=== PATIENT | female | born 1965 | race Caucasian/White ===

== ENCOUNTER 2022-09-06 19:38 | Emergency (ER) | payer MEDICAID, SELFPAY ==
--- NOTE | ~2022-09-06 | XR_ITS ---
EXAMINATION: XR RIBS, LEFT CLINICAL INFORMATION: Left-sided rib pain. COMPARISON: None available. TECHNIQUE: PA view the chest as well as 3 views of the left ribs. FINDINGS: Lungs are clear. No consolidation, pneumothorax, or pleural effusion. The cardiomediastinal silhouette and pulmonary vasculature are normal. Osseous structures are unremarkable. Ribs are intact. No fractures are identified. XR/XR ribs LT min 3V w CXR1V IMPRESSION: No displaced fracture.
--- NOTE | 2022-09-06 19:40 | ED_ITS ---
HPI - General Adult General Chief complaint: Fall Stated complaint: Fall/Left Rib pain Time Seen by Provider: 09/06/22 20:18 Source: patient, RN notes reviewed and old records reviewed Mode of arrival: ambulatory Limitations: no limitations History of Present Illness HPI narrative: 57-year-old female presents for evaluation of left chest wall pain. Patient reports that she was resting her elbow on the edge of the bathtub last night. She tried to stand up in her elbow slipped off. She landed on the bathtub with her left side She reports that it knocked the wind out of her and she had trouble breathing fo r a few minutes She reports that she still has pain with deep breathing and does not feel that she can take a full breath Denies hitting head or losing consciousness She is not on any anticoagulation Related Data Allergies Allergy/AdvReac Type Severity Reaction Status Date / Time No Known Allergies Allergy Verified 09/06/22 19:43 Review of Systems Constitutional: Constitutional: Denies headache(s) ENT: Denies headache(s) Cardiovascular: Comments: Left chest wall pain Genitourinary: Comments: Denies blood in the urine Neurologic: Denies headache(s) PMFSH Social History Social History Advance Directives: No Advance Directives Information Provided: No Physical Exam ED Vital Signs: Vital Signs - 24 hr 09/06/22 19:43 Temperature 98.6 F Pulse Rate 85 Respiratory Rate 19 Blood Pressure 131/50 L Pulse Oximetry 98 Oxygen Delivery Method Room Air BMI result Body Mass Index 24.0 Const General: healthy appearing, comfortable, no acute distress, alert and awake Nutritional Appearance: well nourished Orientation/consciousness: patient oriented x3 HENMT Head: Yes normocephalic and Yes atraumatic Eyes Eyelids: Yes eyelids normal Conjunctivae: conjunctivae normal Sclerae: sclerae normal Corneas: corneas normal Pupils: Equal, round and reactive pupils present EOM: EOMs intact bilaterally Neck Neck: Yes full ROM Chest Other: Patient has some tenderness in the left anterior axilla line at the level of the 10th through 12th ribs. Mild ecchymosis, no deformities noted. No crepitus Resp Effort & Inspection: normal respiratory effort, able to speak in complete sentences and not labored Cardio Rate: regular rate Rhythm: regular rhythm GI Other: No ecchymosis to the abdomen or left flank Inspection: No distended Palpation (GI): Soft to palpation, not firm, nontender, no guarding and not rigid Auscultation: normoactive bowel sounds Skin General skin exam: no rashes or lesions noted and elasticity normal Neuro General: patient oriented x3 Cranial nerves: Yes CN's II-XII intact bilaterally, Yes Equal, round and reactive pupils present and Yes Bilaterally intact EOM present Cognition (Neuro): normal cognition Extrem Other: Moving all extremities well without any obvious deformities Course Course Course Narrative: This is an RME: Additional HPI, ROS, PE not included below will be deferred to primary provider. 57-year-old female presents with left lower rib pain, status post slip and fall in a shower yesterday, pain has been worsening ever since. Rates the pain a 7/10. In patient tells she did not her head or lose consciousness. Not on blood thinners. Has taken Tylenol and tramadol with little to no relief physical exam with tenderness to palpation to left anterior lower ribs 7-10 Plan- xray Medical Decision Making Medical Decision Making MDM Narrative: Patient had trauma to the left chest wall. With an x-ray of the ribs with PA chest. There is no ecchymosis to the abdomen or flank. The patient denies any blood in the urine or difficulty urinating. The son is make splenic or renal injury is less likely Differential Diagnosis Differential Diagnoses: The differential diagnosis associated with the presentation includes Rib fracture Pneumothorax Hemopneumothorax Contusion Independent Interpretation I performed an independent interpretation of an: Plain X-Ray (No acute displaced rib fracture) Discharge Plan Discharge Clinical Impression: Contusion of left chest wall Patient Disposition: Home, Self-Care Instructions: Rib Contusion (ED) Additional Instructions: Your x-rays do not show any obvious displaced rib fractures. Use Motrin or Tylenol as needed for the pain. Apply ice or heat, whichever is more comfortable for you You should get repeat x-rays if your still unable to take a deep breath in 1 week
[2022-09-06 19:43] VITALS: BP 131/50; PULSE 85; RESP 19; TEMP 37; O2SAT 98; BMI 24.0
== END 2022-09-06 20:44 | disposition home or self-care (01) ==
PROVIDERS: Emergency Provider Internal Medicine; PCP Family Medicine
DX: S20.212A Contusion of left front wall of thorax, initial encounter (principal); W18.2XXA Fall in (into) shower or empty bathtub, initial encounter; Y93.E1 Activity, personal bathing and showering; Y92.012 Bathroom of single-family (private) house as the place of occurrence of the external cause; Y99.9 Unspecified external cause status
CPT/HCPCS: 71101; 99282; 99283

== ENCOUNTER 2023-02-26 10:56 | Outpatient (REF) | payer MEDICAID, SELFPAY ==
[2023-02-26 12:05] LABS: Cortisol Random 8.4 ug/dL; Thyroid Stimulating Hormone 1.32 uIU/mL (0.32-4.0)
[2023-02-28 07:09] LABS: DHEA Sulfate 18 mcg/dL (5-167)
[2023-03-02 19:59] LABS: Metanephrine, Free <25 pg/mL (<=57); Normetanephrines, Free 82 pg/mL (<=148); Total Metanephrine, Free 82 pg/mL (<=205)
[2023-03-08 18:28] LABS: Testosterone, Free 0.6 pg/mL (0.1-6.4); Testosterone, Total 7 ng/dL (2-45)
== END 2023-02-26 10:57 | disposition home or self-care (01) ==
LOC: HO.LAB 10:56
PROVIDERS: PCP Family Medicine; Visit Provider Internal Medicine Endocrinology, Diabetes & Metabolism
DX: E27.8 Other specified disorders of adrenal gland (principal)
CPT/HCPCS: 36415; 82533; 82627; 83835; 84402; 84403; 84443

== ENCOUNTER 2023-03-12 08:00 | Outpatient (REF) | payer MEDICAID, SELFPAY ==
[2023-03-12 09:19] LABS: Cortisol Random < 1.0 ug/dL
== END 2023-03-12 08:01 | disposition home or self-care (01) ==
LOC: HO.LAB 08:00
PROVIDERS: Visit Provider Internal Medicine Endocrinology, Diabetes & Metabolism
DX: E27.8 Other specified disorders of adrenal gland (principal)
CPT/HCPCS: 36415; 82533

== ENCOUNTER 2023-04-05 08:56 | Outpatient (AMB) | payer MEDICAID, SELFPAY ==
--- NOTE | 2023-04-05 09:11 | MHC.OFFVIS ---
Intake Vital Signs 04/05/23 09:17 Height 5 ft 1 in Weight 124 lb 6 oz BMI 23.5 BP 126/68 Blood Pressure Location Lt brachial Position Sitting Respiration 16 Pulse 70 Pulse Source Pulse Oximeter Pulse Oximetry (%) 97 Oxygen Delivery Method Room Air Intake Visit Reasons: Cervicalgia/confirmed Allergies No Known Allergies Allergy (Verified 04/05/23 09:09) HPI HPI Comments History of Present Illness Details Blanka is a very pleasant 58-year-old female who presents the office today for evaluation and management of her chronic neck pain. 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 She was formally a patient of Dr. Ledesma, interventional pain management at [facility], but has relocated to this area and is seeking to establish care in our office. Patient reports that she has tried physical therapy many times in the past, most recently about 2 years ago without improvement of her pain. She continues with home exercise program and reports that this helps with her pain, pain is worse if she does not stay active. She is currently undergoing manual manipulation by chiropractor. She uses a traction machine, 10s unit and ice at home with some relief. Patient currently takes cyclobenzaprine and is on chronic opioid therapy management with tramadol that she takes a couple times a week. She was hoping that our office would assume management of her chronic opioid therapy. Patient reports that she has tried several injections to her cervical spine in the past, none provided prolonged relief. Patient denies radiation of the pain down either arm, denies numbness, tingling, burning, or weakness of either arm. She does report radiation of the pain across her upper back to the shoulder blades, bilaterally. Patient denies headaches. In terms of muscle damage condition is described as aching, dull, hot, burning. Pain is negatively impacting patient's recreational activities, sleep inability to care for her . 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 [facility] Medical History (Updated 04/05/23 @ 09:48 by Isa Escobar, CLINICAL SPECIALIST, NEWSPAPER PEDDLER) Adrenal nodule Other hyperlipidemia Anxiety Other chronic pain Review of Systems Const All systems reviewed & are unremarkable except as noted in HPI and below Physical Exam Vital Signs: Last Vital Signs Pulse 70 04/05/23 09:17 Resp 16 04/05/23 09:17 BP 126/68 04/05/23 09:17 Pulse Ox 97 04/05/23 09:17 Oxygen Delivery Method Room Air 04/05/23 09:17 BMI result Body Mass Index 23.5 General: awake, alert, oriented. Answers questions appropriately. Fully engaged in examination. Skin: warm, dry, intact HEENT: Normocephalic. Hearing intact. Cardiac: External chest normal in appearance. Respiratory: No cough, audible wheezing or stridor. Abdomen: without gross distension. MS: No obvious swelling or deformities. Cervical Spine: Visible inspection without gross abnormality Moderate tenderness throughout bilateral middle and lower trapezius muscles Minimally tender to palpation over paraspinal muscles Tender to palpation over cervical vertebrae Full RO< Spurling compression test positive BUE strength 5/5 Neurological: Oriented to person, place, time and situation. Thought process intact. No gait abnormalities appreciated. Psychiatric: Appropriate mood and affect. Good judgment and insight. Results Reviewed Results Reviewed: MRI results have been requested from [facility] for review Assessment & Plan Assessment & Plan (1) Lumbar spondylosis: Code(s): M47.816 - Spondylosis without myelopathy or radiculopathy, lumbar region (2) Chronic neck pain: Code(s): M54.2 - Cervicalgia; G89.29 - Other chronic pain (3) Chronic prescription opiate use: Code(s): Z79.891 - shelter (current) use of opiate analgesic (4) Myofascial muscle pain: Code(s): M79.18 - Myalgia, other site Plan Blanka is a very pleasant 58-year-old female who presented to the office today for evaluation management of her chronic pain. She was formally under care of interventional pain management at [facility], has relocated to this area and is seeking to establish care in our office. Patient is advised that our chronic opioid therapy program is not currently accepting new patients, she was referred to her primary care doctor for refills of her tramadol. MRI results and disc of images have been requested for review. Patient has exhausted conservative therapy including physical therapy, home exercise program, chiropractor, ice, 10s unit, traction, qgvw-vly-unaeivj medications, prescription medications and muscle relaxers. Discussed options for treatment including diagnostic interventional testing, epidural steroid injections, peripheral nerve stimulation with Sprint, RFA and more permanent neuromodulation. Informational pamphlets provided. Will schedule patient for bilateral C4-C5 C6 diagnostic medial branch blocks with local anesthetic pending review of MRI. Discussed option for Sprint peripheral nerve stimulator versus RFA pending positive results of the diagnostic injections. All questions and concerns have been answered and patient agrees with the plan. Follow up after injections and sooner if needed. Coding Level of Care Code New Pt Level 4 (83831) Diagnoses Lumbar spondylosis M47.816 Chronic neck pain M54.2; G89.29 Chronic prescription opiate use Z79.891 Myofascial muscle pain M79.18
[2023-04-05 09:17] VITALS: BP 126/68; PULSE 70; RESP 16; O2SAT 97; BMI 23.5
== END 2023-04-05 09:39 | disposition home or self-care (01) ==
PROVIDERS: PCP Family Medicine; Visit Provider Registered Nurse Emergency
DX: M47.816 Spondylosis without myelopathy or radiculopathy, lumbar region (principal); M54.2 Cervicalgia; G89.29 Other chronic pain; Z79.891 Long term (current) use of opiate analgesic; M79.18 Myalgia, other site
CPT/HCPCS: 99204

== ENCOUNTER → 2023-04-05 08:56 | Outpatient (BNVA) | payer MEDICAID, SELFPAY | PROVIDERS: PCP Family Medicine; Visit Provider Registered Nurse Emergency | DX: M47.816 Spondylosis without myelopathy or radiculopathy, lumbar region (principal); M54.2 Cervicalgia; M79.18 Myalgia, other site; G89.29 Other chronic pain; Z79.891 Long term (current) use of opiate analgesic | CPT/HCPCS: 99212 ==

== ENCOUNTER 2023-05-14 06:11 | Outpatient (REF) | payer MEDICAID, SELFPAY ==
--- NOTE | ~2023-05-14 | FL_ITS ---
EXAMINATION: XR FLUOROSCOPY WITH IMAGES CLINICAL INFORMATION: Spondylosis without myelopathy or radiculopathy, lumbar region. COMPARISON: None available. TECHNIQUE: Fluoroscopy Supervised By: Isa Escobar APRN. Fluoroscopy Time: 0.5 minutes. Cumulative Dose: 1.27 mGy. DAP: 0.0222 mGym2. Images: 6. FINDINGS: Imaging demonstrates sequential placement of needles in the left and right neck with injection of contrast media which appears to be in adjacent tissues. Please see ALXE Escobar's procedure report for full details. FL/FL guidance in treatment room IMPRESSION: Fluoroscopy and spot films provided during bilateral neck injections.
== END 2023-05-14 06:12 | disposition home or self-care (01) ==
LOC: CF 06:11
PROVIDERS: Visit Provider Anesthesiology
DX: M47.816 Spondylosis without myelopathy or radiculopathy, lumbar region (principal); M54.2 Cervicalgia; M79.18 Myalgia, other site; G89.29 Other chronic pain; Z79.891 Long term (current) use of opiate analgesic
CPT/HCPCS: 64490; 64491

== ENCOUNTER 2023-05-14 09:06 | Outpatient (AMB) | payer MEDICAID, SELFPAY ==
[2023-05-14 09:21] VITALS: BP 110/64; PULSE 74; RESP 16; O2SAT 100; BMI 23.5
--- NOTE | 2023-05-14 09:21 | MHC.OFFVIS ---
Intake Vital Signs 05/14/23 09:21 05/14/23 09:22 Height 5 ft 1 in 5 ft 1 in Weight 124 lb 6 oz 124 lb 6 oz BMI 23.5 23.5 BP 110/64 108/66 Blood Pressure Location Lt brachial Lt brachial Position Sitting Sitting Respiration 16 16 Pulse 74 70 Pulse Source Pulse Oximeter Pulse Oximeter Pulse Oximetry (%) 100 100 Oxygen Delivery Method Room Air Room Air Comment pre-op post-op Intake Visit Reasons: BILATERAL DIAGNOSTIC C4,C5,C6 MBB Allergies No Known Allergies Allergy (Verified 05/14/23 10:37) [facility] Medical History (Updated 04/05/23 @ 09:48 by Isa Escobar, FOREST FIRE MANAGEMENT OFFICER, [employer]) Adrenal nodule Other hyperlipidemia Anxiety Other chronic pain Physical Exam Vital Signs: Last Vital Signs Pulse 70 05/14/23 09:22 Resp 16 05/14/23 09:22 BP 108/66 05/14/23 09:22 Pulse Ox 100 05/14/23 09:22 Oxygen Delivery Method Room Air 05/14/23 09:22 BMI result Body Mass Index 23.5 Assessment & Plan Assessment & Plan (1) Lumbar spondylosis: Code(s): M47.816 - Spondylosis without myelopathy or radiculopathy, lumbar region (2) Chronic neck pain: Code(s): M54.2 - Cervicalgia; G89.29 - Other chronic pain (3) Chronic prescription opiate use: Code(s): Z79.891 - [facility] (current) use of opiate analgesic (4) Myofascial muscle pain: Code(s): M79.18 - Myalgia, other site Plan: Bilateral C4-C4- C6 diagnostic medial branch block. ?Informed consent was explained to the patient. All questions were explained and answered.? The patient was taken inside the operating room where she was positioned prone on the operating table. Time-out was performed delineating correct site, side, the nature of the procedure, patient's allergy, preoperative antibiotic if needed.? All operating room staff was participating in OR time-out procedure. The back of the neck and upper back were prepped with ChloraPrep and draped with sterile towels.? Sterilely draped C-arm was brought over the operating field and sq picture of? C4-C5-C6 vertebrae were delineated on the screen.? Points of interest were delineated as lateral masses bilaterally of the vertebrae as above. The waste of each lateral mass was chosen as the target of the tip of the needles on AP view and lateral view was used as a safety view for the tips of the needles position.?? The projections of the point of interest to the skin were injected with the small amount of local anesthetic lidocaine 2% 1-1.5 cc.? After that 22 gauge 3and 1/2 inch? spinal needles were driven to the point of interest in tunnel vision fashion. After needles gently contacted the bone at the point of interests the needle was injected with small amount of the contrast. The injections did not demonstrate intravascular or intrathecal spread.. After that ropivacaine 0.5%-1cc. was injected into each location of the needles. Upon completion of the injections the needles were removed and sterile dressings were applied, the patient was a taken? outside of the operating room to recovery room where she recovered uneventfully. Darby Moscoso is a very pleasant 58-year-old female who presented to the office today for evaluation management of her chronic pain. She was formally under care of interventional pain management at [facility], has relocated to this area and is seeking to establish care in our office. Patient is advised that our chronic opioid therapy program is not currently accepting new patients, she was referred to her primary care doctor for refills of her tramadol. MRI results and disc of images have been requested for review. Patient has exhausted conservative therapy including physical therapy, home exercise program, chiropractor, ice, 10s unit, traction, racy-rmn-degyxkr medications, prescription medications and muscle relaxers. Discussed options for treatment including diagnostic interventional testing, epidural steroid injections, peripheral nerve stimulation with Sprint, RFA and more permanent neuromodulation. Informational pamphlets provided. Will schedule patient for bilateral C4-C5 C6 diagnostic medial branch blocks with local anesthetic pending review of MRI. Discussed option for Sprint peripheral nerve stimulator versus RFA pending positive results of the diagnostic injections. All questions and concerns have been answered and patient agrees with the plan. Follow up after injections and sooner if needed. Orders: Orders FL guidance in treatment room Today M47.816 - Spondylosis without myelopathy or radiculopathy, lumbar region Coding Level of Care Code Procedure Only Diagnoses Lumbar spondylosis M47.816 Chronic neck pain M54.2; G89.29 Chronic prescription opiate use Z79.891 Myofascial muscle pain M79.18
[2023-05-14 09:22] VITALS: BP 108/66; PULSE 70; RESP 16; O2SAT 100; BMI 23.5
== END 2023-05-14 09:58 | disposition home or self-care (01) ==
LOC: HO.PMCPRC 09:06
PROVIDERS: PCP Family Medicine; Visit Provider Anesthesiology
DX: M47.816 Spondylosis without myelopathy or radiculopathy, lumbar region (principal); M54.2 Cervicalgia; G89.29 Other chronic pain; Z79.891 Long term (current) use of opiate analgesic; M79.18 Myalgia, other site
CPT/HCPCS: 64490; 64491

== ENCOUNTER 2023-05-22 10:29 | Outpatient (AMB) | payer MEDICAID, SELFPAY ==
[2023-05-22 10:36] VITALS: BP 123/58; PULSE 64; RESP 16; O2SAT 99; BMI 23.4
--- NOTE | 2023-05-22 10:36 | A.OFFVIS_ITS ---
Intake Vital Signs 3 05/22/23 10:36 Height 5 ft 1 in Weight 124 lb BMI 23.4 BP 123/58 L Blood Pressure Location Lt brachial Position Sitting Respiration 16 Pulse 64 Pulse Source Pulse Oximeter Pulse Oximetry (%) 99 Oxygen Delivery Method Room Air Intake Visit Reasons: BILATERAL DIAGNOSTIC C4, C5,C6 MBB/05/07/23 Allergies No Known Allergies Allergy (Verified 05/14/23 10:37) HPI HPI Comments 2 History of Present Illness0 Details Blanka presents to the office today for follow up post diagnostic bilateral C4-C5 C6 medial branch blocks Patient reports prior to the procedure her pain level was 7/10 and after the procedure pain was 2/10 She reports approximately 70% pain relief in the hours after the diagnostic injection with improvement in functional mobility. At last visit discussed Sprint versus RFA, patient would like to proceed with bilateral Sprint peripheral nerve stimulator. Records received after previous visit from [facility] have been reviewed, results as per below. Prior: Blanka is a very pleasant 58-year-old female who presents the office today for evaluation and management of her chronic neck pain. 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 She was formally a patient of Dr. Ledesma, interventional pain management at [facility], but has relocated to this area and is seeking to establish care in our office. Patient reports that she has tried physical therapy many times in the past, most recently about 2 years ago without improvement of her pain. She continues with home exercise program and reports that this helps with her pain, pain is worse if she does not stay active. She is currently undergoing manual manipulation by chiropractor. She uses a traction machine, 10s unit and ice at home with some relief. Patient currently takes cyclobenzaprine and is on chronic opioid therapy management with tramadol that she takes a couple times a week. She was hoping that our office would assume management of her chronic opioid therapy. Patient reports that she has tried several injections to her cervical spine in the past, none provided prolonged relief. Patient denies radiation of the pain down either arm, denies numbness, tingling, burning, or weakness of either arm. She does report radiation of the pain across her upper back to the shoulder blades, bilaterally. Patient denies headaches. In terms of muscle damage condition is described as aching, dull, hot, burning. Pain is negatively impacting patient's recreational activities, sleep inability to care for her . 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 [facility] Medical History (Updated 04/05/23 @ 09:48 by Isa Escobar, BIG DATA SOFTWARE ENGINEER, INDUSTRIAL GAS SERVICER HELPER) Adrenal nodule Other hyperlipidemia Anxiety Other chronic pain Review of Systems Const All systems reviewed & are unremarkable except as noted in HPI and below Physical Exam Vital Signs: Last Vital Signs Pulse 64 05/22/23 10:36 Resp 16 05/22/23 10:36 BP 123/58 L 05/22/23 10:36 Pulse Ox 99 05/22/23 10:36 Oxygen Delivery Method Room Air 05/22/23 10:36 BMI result Body Mass Index 23.4 General: awake, alert, oriented. Answers questions appropriately. Fully engaged in examination. Skin: warm, dry, intact HEENT: Normocephalic. Hearing intact. Cardiac: External chest normal in appearance. Respiratory: No cough, audible wheezing or stridor. Abdomen: without gross distension. MS: No obvious swelling or deformities. Cervical Spine: Visible inspection without gross abnormality Range of motion intact Neurological: Oriented to person, place, time and situation. Thought process intact. No gait abnormalities appreciated. Psychiatric: Appropriate mood and affect. Good judgment and insight. 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 Discussed options for treatment including therapeutic injections, peripheral nerve stimulation with Sprint, RFA and more permanent neuromodulation. Informational pamphlets provided. Patient would like to proceed with bilateral Sprint peripheral nerve stimulator starting with the left side, right side to follow in 2 weeks. Booking order submitted for fluoroscopy guided left C5MB, maybe C4, maybe C6 sprint peripheral nerve stimulator the local anesthetic. Right side to follow 2 weeks after left side placement. All questions and concerns have been answered and patient agrees with the plan. Follow up after procedure, sooner if needed. Coding Level of Care Code Est Pt Level 3 (96432) Diagnoses Lumbar spondylosis M47.816 Chronic neck pain M54.2; G89.29 Chronic prescription opiate use Z79.891 Myofascial muscle pain M79.18
== END 2023-05-22 11:28 | disposition home or self-care (01) ==
PROVIDERS: PCP Family Medicine; Visit Provider Registered Nurse Emergency
DX: M47.816 Spondylosis without myelopathy or radiculopathy, lumbar region (principal); M54.2 Cervicalgia; G89.29 Other chronic pain; Z79.891 Long term (current) use of opiate analgesic; M79.18 Myalgia, other site
CPT/HCPCS: 99213

== ENCOUNTER → 2023-05-22 10:29 | Outpatient (BNVA) | payer MEDICAID, SELFPAY | PROVIDERS: PCP Family Medicine; Visit Provider Registered Nurse Emergency | DX: M47.816 Spondylosis without myelopathy or radiculopathy, lumbar region (principal); G89.29 Other chronic pain; M54.2 Cervicalgia; M79.18 Myalgia, other site; Z79.891 Long term (current) use of opiate analgesic; Z98.890 Other specified postprocedural states | CPT/HCPCS: 99212 ==

== ENCOUNTER 2023-07-09 06:16 | Outpatient (REF) | payer MEDICAID, SELFPAY ==
--- NOTE | ~2023-07-09 | FL_ITS ---
EXAMINATION: XR FLUOROSCOPY WITH IMAGES CLINICAL INFORMATION: Cervicalgia. COMPARISON: Fluoroscopy dated 06/25/2023. TECHNIQUE: Fluoroscopy Supervised By: Dr. Angel Norris. Fluoroscopy Time: 0.1 minutes. Cumulative Dose: 0.343 mGy. DAP: 0.06964 mGym2. Images: 1. FINDINGS: A guidewire overlaps the right cervical paravertebral soft tissues. FL/FL guidance in treatment room IMPRESSION: Intraoperative fluoroscopy is provided during cervical spine pain management procedure. Please see the patient's Operative Report for full procedural details.
== END 2023-07-09 06:17 | disposition home or self-care (01) ==
LOC: CF 06:16
PROVIDERS: Visit Provider Anesthesiology
DX: M47.816 Spondylosis without myelopathy or radiculopathy, lumbar region (principal); M54.2 Cervicalgia; G89.29 Other chronic pain; Z79.891 Long term (current) use of opiate analgesic
CPT/HCPCS: 64555; C1778

== ENCOUNTER 2023-07-09 08:37 | Outpatient (AMB) | payer MEDICAID, SELFPAY ==
[2023-07-09 08:43] VITALS: BP 114/68; PULSE 73; RESP 16; O2SAT 100; BMI 23.4
--- NOTE | 2023-07-09 08:43 | MHC.OFFVIS ---
Intake Vital Signs 07/09/23 08:43 07/09/23 09:34 Height 5 ft 1 in 5 ft 1 in Weight 124 lb 124 lb BMI 23.4 23.4 BP 114/68 122/70 Blood Pressure Location Rt brachial Rt brachial Position Sitting Sitting Respiration 16 16 Pulse 73 63 Pulse Source Pulse Oximeter Pulse Oximeter Pulse Oximetry (%) 100 99 Oxygen Delivery Method Room Air Room Air Comment pre-op post-op Intake Visit Reasons: RIGHT C5 (MAYBE C4, MAYBE C6) SPRINT PNS Allergies No Known Allergies Allergy (Verified 07/09/23 08:45) [facility] Medical History (Updated 04/05/23 @ 09:48 by Isa Escobar, TRAFFIC SAFETY ADMINISTRATOR, [employer]ACHINE) Adrenal nodule Other hyperlipidemia Anxiety Other chronic pain Physical Exam Vital Signs: Last Vital Signs Pulse 63 07/09/23 09:34 Resp 16 07/09/23 09:34 BP 122/70 07/09/23 09:34 Pulse Ox 99 07/09/23 09:34 Oxygen Delivery Method Room Air 07/09/23 09:34 BMI result Body Mass Index 23.4 Office Procedures Details: Right side completed today, in-2. weeks we will perform the left side. Sprint PNS Device: Sprint PNS Device [id number] Percutaneous Peripheral Neuroelectrode Procedure: 51312 - Percutaneous Peripheral Neuroelectrode Procedure code (CPT) selection complete Assessment & Plan Assessment & Plan (1) Lumbar spondylosis: Code(s): M47.816 - Spondylosis without myelopathy or radiculopathy, lumbar region (2) Chronic neck pain: Code(s): M54.2 - Cervicalgia; G89.29 - Other chronic pain (3) Chronic prescription opiate use: Code(s): Z79.891 - associate business analyst (current) use of opiate analgesic (4) Myofascial muscle pain: Code(s): M79.18 - Myalgia, other site Plan Sprint PNS C5 on the right. Percutaneous implantation of peripheral nerve stimulation Sprint system. After the risks, benefits and alternatives were discussed with the patient and informed consent was obtained, patient was placed in the prone position and padded to foster comfort. Time out was performed delineating correct site and side of the procedure , name and of the patient, patient participated in time out procedure. Sterily draped C-arm was brought over the operating field and clear picture of the C5 lamina on the right was delineated on the screen. The upper central portion of the lamina was chosen as a target of the needle tip insertion . After identifying and marking the intended target, the skin around the planned entry point and the subcutaneous tissues were injected with local anesthetic forming skin wheal.. A percutaneous sleeve and stimulating probe lead introduction system were assembled, inserted and advanced through the skin wheal to the point of interest under C-arm view in tunnel vision fashion, the introducer needle was delivered to a location in proximity to the nerve. Multiple stimulation parameters were used to deliver stimulation to the nerve in concert with stimulating at multiple positions around the nerve. nerve target acquisition was confirmed noting generation of in the corresponding to the nerve being stimulated. Various electrical parameter combinations were tested, and the lead location was adjusted (physically relocated) until the patient indicated overlapping the distribution of the patient?s typical region of pain. The stimulating probe was removed from the introducer and a percutaneous lead was guided through the needle and delivered to a location in similar proximity to the nerve. Final location was verified with electrical stimulation. The introducer needle was removed, and the exposed end of the percutaneous lead was attached to an external stimulator unit. At the end of the case various electrical parameter combinations were again tested until the patient indicated paresthesia or muscle tension overlapping the distribution of the patient?s typical region of pain. After confirming that lead impedance was in the normal range, the external unit was detached, the needle was removed, and the lead was anchored at the skin. The lead was threaded into the connector block and electrical continuity and desired patient response was confirmed. The connector block was attached to the external stimulator unit. The site was covered with a sterile occlusive dressing and a image was taken to document final placement. Upon completion of the procedure the patient was taken outside the OR where she recovered uneventfully he went home without immediate complications Orders: Orders FL guidance in treatment room Today G89.29 - Other chronic pain, M54.2 - Cervicalgia Coding Level of Care Code Procedure Only Diagnoses Lumbar spondylosis M47.816 Chronic neck pain M54.2; G89.29 Chronic prescription opiate use Z79.891 Myofascial muscle pain M79.18 CPT Codes Sprint PNS - Sprint PNS Device: Sprint PNS Device ([id number]) Sprint PNS - SPRINT: 54226 - Percutaneous Peripheral Neuroelectrode ([id number])
[2023-07-09 09:34] VITALS: BP 122/70; PULSE 63; RESP 16; O2SAT 99; BMI 23.4
== END 2023-07-09 09:42 | disposition home or self-care (01) ==
LOC: HO.PMCPRC 08:37
PROVIDERS: PCP Family Medicine; Visit Provider Anesthesiology
DX: M47.816 Spondylosis without myelopathy or radiculopathy, lumbar region (principal); M54.2 Cervicalgia; G89.29 Other chronic pain; Z79.891 Long term (current) use of opiate analgesic; M79.18 Myalgia, other site
CPT/HCPCS: 64555

== ENCOUNTER 2023-07-17 10:46 | Outpatient (AMB) | payer MEDICAID, SELFPAY ==
[2023-07-17 10:56] VITALS: BP 139/56; PULSE 80; RESP 18; O2SAT 98; BMI 23.4
--- NOTE | 2023-07-17 10:56 | A.OFFVIS_ITS ---
Intake Vital Signs 3 07/17/23 10:56 Height 5 ft 1 in Weight 124 lb BMI 23.4 BP 139/56 L Blood Pressure Location Lt brachial Position Sitting Respiration 18 Pulse 80 Pulse Source Pulse Oximeter Pulse Oximetry (%) 98 Oxygen Delivery Method Room Air Intake Visit Reasons: RIGHT C5 SPRINT PNS/07/09/23 Allergies No Known Allergies Allergy (Verified 07/17/23 10:56) HPI HPI Comments 2 History of Present Illness0 Details Blnaka presents back to the office today for follow-up right C5 sprint PNS placement performed 07/09/2023 Patient reports 70% improvement in her right cervical neck pain since device placement. She does report continued left-sided cervical pain, is awaiting left Sprint placement next week. She has been changing the dressing at home without difficulty. Adjusting the stimulation as needed without difficulty. Has been in close contact with her Sprint arborist representative. She denies any untoward effects of the sprint device. Prior: Blanka presents to the office today for follow up post diagnostic bilateral C4- C5 C6 medial branch blocks Patient reports prior to the procedure her pain level was 7/10 and after the procedure pain was 2/10 She reports approximately 70% pain relief in the hours after the diagnostic injection with improvement in functional mobility. At last visit discussed Sprint versus RFA, patient would like to proceed with bilateral Sprint peripheral nerve stimulator. Records received after previous visit from [facility] have been reviewed, results as per below. Prior: Blanka is a very pleasant 58-year-old female who presents the office today for evaluation and management of her chronic neck pain. 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 She was formally a patient of Dr. Ledesma, interventional pain management at [facility], but has relocated to this area and is seeking to establish care in our office. Patient reports that she has tried physical therapy many times in the past, most recently about 2 years ago without improvement of her pain. She continues with home exercise program and reports that this helps with her pain, pain is worse if she does not stay active. She is currently undergoing manual manipulation by chiropractor. She uses a traction machine, 10s unit and ice at home with some relief. Patient currently takes cyclobenzaprine and is on chronic opioid therapy management with tramadol that she takes a couple times a week. She was hoping that our office would assume management of her chronic opioid therapy. Patient reports that she has tried several injections to her cervical spine in the past, none provided prolonged relief. Patient denies radiation of the pain down either arm, denies numbness, tingling, burning, or weakness of either arm. She does report radiation of the pain across her upper back to the shoulder blades, bilaterally. Patient denies headaches. In terms of muscle damage condition is described as aching, dull, hot, burning. Pain is negatively impacting patient's recreational activities, sleep inability to care for her . 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 [facility] Medical History (Updated 04/05/23 @ 09:48 by Isa Escobar, ALEX, MEDICAL SERVICES COORDINATOR) Adrenal nodule Other hyperlipidemia Anxiety Other chronic pain Review of Systems Const All systems reviewed & are unremarkable except as noted in HPI and below Physical Exam Vital Signs: Last Vital Signs Pulse 80 07/17/23 10:56 Resp 18 07/17/23 10:56 BP 139/56 L 07/17/23 10:56 Pulse Ox 98 07/17/23 10:56 Oxygen Delivery Method Room Air 07/17/23 10:56 BMI result Body Mass Index 23.4 General: awake, alert, oriented. Answers questions appropriately. Fully engaged in examination. Skin: warm, dry, intact HEENT: Normocephalic. Hearing intact. Cardiac: External chest normal in appearance. Respiratory: No cough, audible wheezing or stridor. Abdomen: without gross distension. MS: No obvious swelling or deformities. Neurological: Oriented to person, place, time and situation. Thought process intact. No gait abnormalities appreciated. Psychiatric: Appropriate mood and affect. Good judgment and insight. Sprint dressing change: Existing dressing removed, Area cleansed with chloraprep. Site dry, clean without redness, swelling, warmth, bruising or drainage. Lead secure device removed. Area cleansed again with chloraprep, once dry skin barrier protectant wipe applied. New lead secure device applied, tegaderm applied. Patient tolerated procedure well. Results Reviewed Results Reviewed: 08/26/2018 Assessment & Plan Assessment & Plan (1) Lumbar spondylosis: Code(s): M47.816 - Spondylosis without myelopathy or radiculopathy, lumbar region (2) Chronic neck pain: Code(s): M54.2 - Cervicalgia; G89.29 - Other chronic pain (3) Chronic prescription opiate use: Code(s): Z79.891 - salvage determiner (current) use of opiate analgesic (4) Myofascial muscle pain: Code(s): M79.18 - Myalgia, other site Plan Blanka is a very pleasant 58-year-old female who presented to the office today for follow-up 1 week status post right C5 Sprint PNS placement performed 07/09/2023 Patient reports approximately 70% pain relief of her right-sided cervical pain with improvement in functional mobility since device placement She continues with left-sided cervical pain, plan for left C5 Sprint in 1 week. Patient would like to continue with this plan. All questions and concerns have been answered and patient agrees with the plan. Follow up after as plan for left C5 Sprint placement, sooner if needed. Coding Level of Care Code Est Pt Level 3 (37119) Diagnoses Lumbar spondylosis M47.816 Chronic neck pain M54.2; G89.29 Chronic prescription opiate use Z79.891 Myofascial muscle pain M79.18
== END 2023-07-17 11:03 | disposition home or self-care (01) ==
PROVIDERS: PCP Family Medicine; Visit Provider Registered Nurse Emergency
DX: M47.816 Spondylosis without myelopathy or radiculopathy, lumbar region (principal); M54.2 Cervicalgia; G89.29 Other chronic pain; Z79.891 Long term (current) use of opiate analgesic; M79.18 Myalgia, other site
CPT/HCPCS: 99024

== ENCOUNTER → 2023-07-17 10:46 | Outpatient (BNVA) | payer MEDICAID, SELFPAY | PROVIDERS: PCP Family Medicine; Visit Provider Registered Nurse Emergency | DX: M47.816 Spondylosis without myelopathy or radiculopathy, lumbar region (principal); M54.2 Cervicalgia; G89.29 Other chronic pain; M79.18 Myalgia, other site; Z79.891 Long term (current) use of opiate analgesic | CPT/HCPCS: 99212 ==

== ENCOUNTER 2023-07-23 06:57 | Outpatient (REF) | payer MEDICAID, SELFPAY ==
--- NOTE | ~2023-07-23 | FL_ITS ---
EXAMINATION: XR FLUOROSCOPY WITH IMAGES CLINICAL INFORMATION: Cervicalgia COMPARISON: None available. TECHNIQUE: Fluoroscopy Supervised By: Dr. Escobar. Fluoroscopy Time: 0.2 minutes. Cumulative Dose: 2.57 mGy. DAP: 0.281 Gycm2. Images: 2. FINDINGS: Please refer to procedural note for full details. FL/FL guidance in treatment room IMPRESSION: Intraoperative fluoroscopy.
== END 2023-07-23 06:58 | disposition home or self-care (01) ==
LOC: CF 06:57
PROVIDERS: Visit Provider Anesthesiology
DX: M54.2 Cervicalgia (principal); M47.816 Spondylosis without myelopathy or radiculopathy, lumbar region; M79.18 Myalgia, other site; G89.29 Other chronic pain; Z79.891 Long term (current) use of opiate analgesic
CPT/HCPCS: 64555

== ENCOUNTER 2023-07-23 08:29 | Outpatient (AMB) | payer MEDICAID, SELFPAY ==
[2023-07-23 08:38] VITALS: BP 116/62; PULSE 78; RESP 18; O2SAT 100; BMI 23.4
--- NOTE | 2023-07-23 08:38 | MHC.OFFVIS ---
Intake Vital Signs 07/23/23 08:38 07/23/23 09:14 Height 5 ft 1 in Weight 124 lb BMI 23.4 BP 116/62 118/74 Blood Pressure Location Lt brachial Lt brachial Position Sitting Sitting Respiration 18 16 Pulse 78 70 Pulse Source Pulse Oximeter Pulse Oximeter Pulse Oximetry (%) 100 99 Oxygen Delivery Method Room Air Room Air Comment Pre-Op Post-Op Intake Visit Reasons: LEFT C5 (MAYBE C4, MAYBE C6) SPRINT PNS Allergies No Known Allergies Allergy (Verified 07/17/23 10:56) [facility] Medical History (Updated 04/05/23 @ 09:48 by Isa Escobar, LIMEROCK TOWER LOADER, FARMWORKER [employer]) Adrenal nodule Other hyperlipidemia Anxiety Other chronic pain Physical Exam Vital Signs: Last Vital Signs Pulse 70 07/23/23 09:14 Resp 16 07/23/23 09:14 BP 118/74 07/23/23 09:14 Pulse Ox 99 07/23/23 09:14 Oxygen Delivery Method Room Air 07/23/23 09:14 BMI result Body Mass Index 23.4 Assessment & Plan Assessment & Plan (1) Lumbar spondylosis: Code(s): M47.816 - Spondylosis without myelopathy or radiculopathy, lumbar region (2) Chronic neck pain: Code(s): M54.2 - Cervicalgia; G89.29 - Other chronic pain (3) Chronic prescription opiate use: Code(s): Z79.891 - long-term (current) use of opiate analgesic (4) Myofascial muscle pain: Code(s): M79.18 - Myalgia, other site Plan Sprint PNS C5 on the left completion of the procedure. Percutaneous implantation of peripheral nerve stimulation Sprint system. After the risks, benefits and alternatives were discussed with the patient and informed consent was obtained, patient was placed in the prone position and padded to foster comfort. Time out was performed delineating correct site and side of the procedure , name and of the patient, patient participated in time out procedure. Sterily draped C-arm was brought over the operating field and clear picture of the C5 lamina on the left was delineated on the screen. The upper central portion of the lamina was chosen as a target of the needle tip insertion . After identifying and marking the intended target, the skin around the planned entry point and the subcutaneous tissues were injected with local anesthetic forming skin wheal.. A percutaneous sleeve and stimulating probe lead introduction system were assembled, inserted and advanced through the skin wheal to the point of interest under C-arm view in tunnel vision fashion, the introducer needle was delivered to a location in proximity to the nerve. Multiple stimulation parameters were used to deliver stimulation to the nerve in concert with stimulating at multiple positions around the nerve. nerve target acquisition was confirmed noting generation of in the corresponding to the nerve being stimulated. Various electrical parameter combinations were tested, and the lead location was adjusted until the patient indicated overlapping the distribution of the patient?s typical region of pain. The stimulating probe was removed from the introducer and a percutaneous lead was guided through the needle and delivered to a location in similar proximity to the nerve. Final location was verified with electrical stimulation. The introducer needle was removed, and the exposed end of the percutaneous lead was attached to an external stimulator unit. At the end of the case various electrical parameter combinations were again tested until the patient indicated paresthesia or muscle tension overlapping the distribution of the patient?s typical region of pain. After confirming that lead impedance was in the normal range, the external unit was detached, the needle was removed, and the lead was anchored at the skin. The lead was threaded into the connector block and electrical continuity and desired patient response was confirmed. The connector block was attached to the external stimulator unit. The site was covered with a sterile occlusive dressing and a image was taken to document final placement. Upon completion of the procedure the patient was taken outside the OR where she recovered uneventfully he went home without immediate complications Orders: Orders FL guidance in treatment room Today G89.29 - Other chronic pain, M54.2 - Cervicalgia Coding Level of Care Code Procedure Only Diagnoses Lumbar spondylosis M47.816 Chronic neck pain M54.2; G89.29 Chronic prescription opiate use Z79.891 Myofascial muscle pain M79.18
[2023-07-23 09:14] VITALS: BP 118/74; PULSE 70; RESP 16; O2SAT 99
== END 2023-07-23 09:15 | disposition home or self-care (01) ==
LOC: HO.PMCPRC 08:30
PROVIDERS: PCP Family Medicine; Visit Provider Anesthesiology
DX: M47.816 Spondylosis without myelopathy or radiculopathy, lumbar region (principal); M54.2 Cervicalgia; G89.29 Other chronic pain; Z79.891 Long term (current) use of opiate analgesic; M79.18 Myalgia, other site
CPT/HCPCS: 64555

== ENCOUNTER 2023-07-31 09:01 | Outpatient (AMB) | payer MEDICAID, SELFPAY ==
--- NOTE | 2023-07-31 09:11 | A.OFFVIS_ITS ---
Intake Vital Signs 3 07/31/23 09:12 Height 5 ft 1 in Weight 119 lb BMI 22.5 BP 147/65 H Blood Pressure Location Lt brachial Position Sitting Respiration 18 Pulse 77 Pulse Source Pulse Oximeter Pulse Oximetry (%) 99 Oxygen Delivery Method Room Air Intake Visit Reasons: LEFT C5 SPRINT PNS TRIAL/07/23/23 Allergies No Known Allergies Allergy (Verified 07/31/23 09:11) HPI HPI Comments 2 History of Present Illness0 Details Blanka presents back to the office today for follow-up left C5 sprint PNS placement performed 07/23/23 Patient reports 50% improvement in her left cervical neck pain since device placement. Remains with greater than 70% improvement of her right cervical neck pain since placement of her right C5 Sprint 07/09/23. Reports that she has been in contact with the reps, able to change the dressings at home without difficulty, adjusting the stimulation as needed She denies any untoward effects of the sprint device. Prior: Blanka presents back to the office today for follow-up right C5 sprint PNS placement performed 07/09/2023 Patient reports 70% improvement in her right cervical neck pain since device placement. She does report continued left-sided cervical pain, is awaiting left Sprint placement next week. She has been changing the dressing at home without difficulty. Adjusting the stimulation as needed without difficulty. Has been in close contact with her Sprint off premise service representative. She denies any untoward effects of the sprint device. Prior: Blanka presents to the office today for follow up post diagnostic bilateral C4- C5 C6 medial branch blocks Patient reports prior to the procedure her pain level was 7/10 and after the procedure pain was 2/10 She reports approximately 70% pain relief in the hours after the diagnostic injection with improvement in functional mobility. At last visit discussed Sprint versus RFA, patient would like to proceed with bilateral Sprint peripheral nerve stimulator. Records received after previous visit from [facility] have been reviewed, results as per below. Prior: Blanka is a very pleasant 58-year-old female who presents the office today for evaluation and management of her chronic neck pain. 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 She was formally a patient of Dr. Ledesma, interventional pain management at [facility], but has relocated to this area and is seeking to establish care in our office. Patient reports that she has tried physical therapy many times in the past, most recently about 2 years ago without improvement of her pain. She continues with home exercise program and reports that this helps with her pain, pain is worse if she does not stay active. She is currently undergoing manual manipulation by chiropractor. She uses a traction machine, 10s unit and ice at home with some relief. Patient currently takes cyclobenzaprine and is on chronic opioid therapy management with tramadol that she takes a couple times a week. She was hoping that our office would assume management of her chronic opioid therapy. Patient reports that she has tried several injections to her cervical spine in the past, none provided prolonged relief. Patient denies radiation of the pain down either arm, denies numbness, tingling, burning, or weakness of either arm. She does report radiation of the pain across her upper back to the shoulder blades, bilaterally. Patient denies headaches. In terms of muscle damage condition is described as aching, dull, hot, burning. Pain is negatively impacting patient's recreational activities, sleep inability to care for her . 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 [facility] Medical History (Updated 04/05/23 @ 09:48 by Isa Escobar APRN, ZAK) Adrenal nodule Other hyperlipidemia Anxiety Other chronic pain Review of Systems Const All systems reviewed & are unremarkable except as noted in HPI and below Physical Exam Vital Signs: Last Vital Signs Pulse 77 07/31/23 09:12 Resp 18 07/31/23 09:12 BP 147/65 H 07/31/23 09:12 Pulse Ox 99 07/31/23 09:12 Oxygen Delivery Method Room Air 07/31/23 09:12 BMI result Body Mass Index 22.5 General: awake, alert, oriented. Answers questions appropriately. Fully engaged in examination. Skin: warm, dry, intact HEENT: Normocephalic. Hearing intact. Cardiac: External chest normal in appearance. Respiratory: No cough, audible wheezing or stridor. Abdomen: without gross distension. MS: No obvious swelling or deformities. Neurological: Oriented to person, place, time and situation. Thought process intact. No gait abnormalities appreciated. Psychiatric: Appropriate mood and affect. Good judgment and insight. Sprint dressing change: Existing dressing removed, Area cleansed with chloraprep. Site dry, clean without redness, swelling, warmth, bruising or drainage. Bilateral lead secure devices removed. Area cleansed again with chloraprep, once dry skin barrier protectant wipe applied. New lead secure devices applied, tegaderm applied. Patient tolerated well. Results Reviewed Results Reviewed: 08/26/2018 Assessment & Plan Assessment & Plan (1) Lumbar spondylosis: Code(s): M47.816 - Spondylosis without myelopathy or radiculopathy, lumbar region (2) Chronic neck pain: Code(s): M54.2 - Cervicalgia; G89.29 - Other chronic pain (3) Chronic prescription opiate use: Code(s): Z79.891 - long term care social worker (current) use of opiate analgesic (4) Myofascial muscle pain: Code(s): M79.18 - Myalgia, other site Plan Blanka is a very pleasant 58-year-old female who presented to the office today for follow-up 1 week status post Left C5 Sprint PNS placement performed 07/23/23 Patient reports approximately 50% pain relief of her left-sided cervical pain, she continues working with the wraps and titrating stimulation. Reassured that it may take at least 2 weeks before reaching therapeutic effect Continue with dressing changes as directed. Patient reports she has supplies at home. All questions and concerns have been answered and patient agrees with the plan. Follow-up for device removal as scheduled, sooner if needed. Coding Level of Care Code Est Pt Level 3 (96248) Diagnoses Lumbar spondylosis M47.816 Chronic neck pain M54.2; G89.29 Chronic prescription opiate use Z79.891 Myofascial muscle pain M79.18
[2023-07-31 09:12] VITALS: BP 147/65; PULSE 77; RESP 18; O2SAT 99; BMI 22.5
== END 2023-07-31 09:28 | disposition home or self-care (01) ==
PROVIDERS: PCP Family Medicine; Visit Provider Registered Nurse Emergency
DX: M47.816 Spondylosis without myelopathy or radiculopathy, lumbar region (principal); M54.2 Cervicalgia; G89.29 Other chronic pain; Z79.891 Long term (current) use of opiate analgesic; M79.18 Myalgia, other site
CPT/HCPCS: 99213

== ENCOUNTER → 2023-07-31 09:01 | Outpatient (BNVA) | payer MEDICAID, SELFPAY | PROVIDERS: PCP Family Medicine; Visit Provider Registered Nurse Emergency | DX: M47.816 Spondylosis without myelopathy or radiculopathy, lumbar region (principal); M54.2 Cervicalgia; M79.18 Myalgia, other site; G89.29 Other chronic pain; Z79.891 Long term (current) use of opiate analgesic | CPT/HCPCS: 99212 ==

== ENCOUNTER 2023-09-04 11:00 | Outpatient (AMB) | payer MEDICAID, SELFPAY ==
--- NOTE | 2023-09-04 11:05 | A.OFFVIS_ITS ---
Vital Signs 3 09/04/23 11:13 Height 5 ft 1 in Weight 120 lb 2 oz BMI 22.7 BP 110/64 Blood Pressure Location Lt brachial Position Sitting Respiration 16 Pulse 86 Pulse Source Pulse Oximeter Pulse Oximetry (%) 96 Oxygen Delivery Method Room Air Intake Visit Reasons: RIGHT SPRINT REMOVAL Allergies No Known Allergies Allergy (Verified 07/31/23 09:11) HPI Comments Details: Blanka presents back to the office today for follow-up, removal of right C5 Sprint PNS Patient states her is an patient in [place], she is requesting that left and right sides be removed today. Patient reports improvement in function and mobility since placement of the spirits. Average pain level is 3/10. Prior to device placements average pain was 7/10. Prior: Blanka presents back to the office today for follow-up left C5 sprint PNS placement performed 07/23/23 Patient reports 50% improvement in her left cervical neck pain since device placement. Remains with greater than 70% improvement of her right cervical neck pain since placement of her right C5 Sprint 07/09/23. Reports that she has been in contact with the reps, able to change the dressings at home without difficulty, adjusting the stimulation as needed She denies any untoward effects of the sprint device. Prior: Blanka presents back to the office today for follow-up right C5 sprint PNS placement performed 07/09/2023 Patient reports 70% improvement in her right cervical neck pain since device placement. She does report continued left-sided cervical pain, is awaiting left Sprint placement next week. She has been changing the dressing at home without difficulty. Adjusting the stimulation as needed without difficulty. Has been in close contact with her Sprint tax compliance representative. She denies any untoward effects of the sprint device. Prior: Blanka presents to the office today for follow up post diagnostic bilateral C4- C5 C6 medial branch blocks Patient reports prior to the procedure her pain level was 7/10 and after the procedure pain was 2/10 She reports approximately 70% pain relief in the hours after the diagnostic injection with improvement in functional mobility. At last visit discussed Sprint versus RFA, patient would like to proceed with bilateral Sprint peripheral nerve stimulator. Records received after previous visit from [facility] have been reviewed, results as per below. Prior: Blanka is a very pleasant 58-year-old female who presents the office today for evaluation and management of her chronic neck pain. Patient reports that she has been suffering with this pain for greater than 10 years, she attributes the pain to many years of [employer]RY [employer] work an improper lifting of patients due to lack of equipment. She was formally a patient of Dr. Ledesma, interventional pain management at [facility], but has relocated to this area and is seeking to establish care in our office. Patient reports that she has tried physical therapy many times in the past, most recently about 2 years ago without improvement of her pain. She continues with home exercise program and reports that this helps with her pain, pain is worse if she does not stay active. She is currently undergoing manual manipulation by chiropractor. She uses a traction machine, 10s unit and ice at home with some relief. Patient currently takes cyclobenzaprine and is on chronic opioid therapy management with tramadol that she takes a couple times a week. She was hoping that our office would assume management of her chronic opioid therapy. Patient reports that she has tried several injections to her cervical spine in the past, none provided prolonged relief. Patient denies radiation of the pain down either arm, denies numbness, tingling, burning, or weakness of either arm. She does report radiation of the pain across her upper back to the shoulder blades, bilaterally. Patient denies headaches. In terms of muscle damage condition is described as aching, dull, hot, burning. Pain is negatively impacting patient's recreational activities, sleep inability to care for her . 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 [facility] Medical History (Updated 04/05/23 @ 09:48 by Isa Escobar, PROOFING MACHINE OPERATOR, MATCHER) Adrenal nodule Other hyperlipidemia Anxiety Other chronic pain Review of Systems Const All systems reviewed & are unremarkable except as noted in HPI and below Physical Exam Vital Signs: Last Vital Signs Pulse 86 09/04/23 11:13 Resp 16 09/04/23 11:13 BP 110/64 09/04/23 11:13 Pulse Ox 96 09/04/23 11:13 Oxygen Delivery Method Room Air 09/04/23 11:13 BMI result Body Mass Index 22.7 General: awake, alert, oriented. Answers questions appropriately. Fully engaged in examination. Skin: warm, dry, intact HEENT: Normocephalic. Hearing intact. Cardiac: External chest normal in appearance. Respiratory: No cough, audible wheezing or stridor. Abdomen: without gross distension. MS: No obvious swelling or deformities. Neurological: Oriented to person, place, time and situation. Thought process intact. No gait abnormalities appreciated. Psychiatric: Appropriate mood and affect. Good judgment and insight. Sprint removal: Dressing removed, Sites dry, clean, intact. Area cleansed with chloraprep, bilateral leads removed with intact tips. Area cleansed again with chloraprep, bacitracin dressing with tegaderm applied. Patient tolerated removal well. Results Reviewed Results Reviewed: 08/26/2018 Assessment & Plan Assessment & Plan (1) Lumbar spondylosis: Code(s): M47.816 - Spondylosis without myelopathy or radiculopathy, lumbar region Category: Medical (2) Chronic neck pain: Code(s): M54.2 - Cervicalgia; G89.29 - Other chronic pain Category: Medical (3) Chronic prescription opiate use: Code(s): Z79.891 - prison (current) use of opiate analgesic Category: Medical (4) Myofascial muscle pain: Code(s): M79.18 - Myalgia, other site Category: Medical Plan Blanka is a very pleasant 58-year-old female who presented to the office today for bilateral C5 medial branch Sprint removal Patient reports 50% pain relief with improvement in function and mobility. She feels her range of motion was greatly improved. James removed, as per above. Patient tolerated well. All questions and concerns have been answered and patient agrees with the plan. Patient will call for follow-up, she prefers to wait until her life is ?more settled ?. Coding Level of Care Code Est Pt Level 3 (62520) Diagnoses Lumbar spondylosis M47.816 Chronic neck pain M54.2; G89.29 Chronic prescription opiate use Z79.891 Myofascial muscle pain M79.18
[2023-09-04 11:13] VITALS: BP 110/64; PULSE 86; RESP 16; O2SAT 96; BMI 22.7
== END 2023-09-04 11:48 | disposition home or self-care (01) ==
PROVIDERS: PCP Family Medicine; Visit Provider Registered Nurse Emergency
DX: M47.816 Spondylosis without myelopathy or radiculopathy, lumbar region (principal); M54.2 Cervicalgia; G89.29 Other chronic pain; Z79.891 Long term (current) use of opiate analgesic; M79.18 Myalgia, other site
CPT/HCPCS: 99213

== ENCOUNTER → 2023-09-04 11:00 | Outpatient (BNVA) | payer OTHER, SELFPAY | PROVIDERS: PCP Family Medicine; Visit Provider Registered Nurse Emergency | DX: Z45.42 Encounter for adjustment and management of neurostimulator (principal); M47.816 Spondylosis without myelopathy or radiculopathy, lumbar region; M54.2 Cervicalgia; G89.29 Other chronic pain; M79.18 Myalgia, other site; Z79.891 Long term (current) use of opiate analgesic | CPT/HCPCS: 99212 ==

== ENCOUNTER 2024-02-05 08:57 | Outpatient (AMB) | payer OTHER, SELFPAY ==
--- NOTE | 2024-02-05 09:00 | MHC.PC.OV ---
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 Intake Note: New patient visit Allergies No Known Allergies Allergy (Verified 02/05/24 09:00) Medication List - Last Reconciled 02/05/24 by Ashley Narvaez PA-C hydroxyzine HCl 50 mg PO BEDTIME PRN tramadol 50 mg PO Q OTHER DAY PRN Tobacco use date assessed: 02/05/24 Dental Screening Dental Screen Date: 02/05/24 Did you have a dental visit in the last 12 months?: Yes Did you have a dental problem in the last 6 months where you did not have access to dental care?: No Was dental information given to patient?: Patient has dentist 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 She denies any acute concerns today. She says that she has a history of anemia but is not sure if she is still anemic or if this was related to back when she would get her menses. She states that she also has controlled her cholesterol for years with diet. She has been followed by our pain management Department and states that she uses once a day or only a couple times a week for her chronic neck and back pain. She was on this by her previous PCP. She recently moved to this area from [place] because her has pancreatic cancer and they are now closer to the major hospitals for him as he has also had 2 heart attacks related to his treatments and they are closer to the [facility] to get to [place]. She states that this has been stressful and she also sometimes uses hydroxyzine for panic attacks/insomnia. She rarely uses this and states that her PCP gave it to her 3 years ago to use as needed while he was undergoing a diagnosis of this. Endo: follows with endo in [place] for left adrenal nodule (believes benign and stable for years). Mammo: will order but states utd and due in April Colonoscopy: states she had the cologuard last year (2022) Pap: partial hysterectomy Bone density: over[facility] Medical History (Updated 02/05/24 @ 12:14 by Ashley Narvaez PA-C) Adrenal nodule Other hyperlipidemia Anxiety Other chronic pain Social History (Updated 02/05/24 @ 09:12 by Sobia Perez CMA) Housing: House Patient Tobacco Use Status: Former Tobacco user Cigarette Packs Per Day: 0.5 Years Smoked: 10 e-Cigarette/Vaping Use: Never Used Second Hand Smoke Exposure: No service: No Current occupational status: employed and unemployed 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 Current occupational exposures/hazards: No Cognitive needs: No Hearing needs: No Vision needs: No Questionnaire PHQ-9 Over the last 2 weeks, how often have you been bothered by any of the following problems? 1. Little interest or pleasure in doing things: not at all 2. Feeling down, depressed, or hopeless: not at all 3. Trouble falling or staying asleep, or sleeping too much: not at all 4. Feeling tired or having little energy: not at all 5. Poor appetite or overeating: not at all 6. Feeling bad about yourself - or that you are a failure or have let yourself or your family down: not at all 7. Trouble concentrating on things, such as reading the newspaper or watching television: not at all 8. Moving or speaking so slowly that other people could have noticed. Or the opposite - being so fidgety or restless that you have been moving around a lot more than usual: not at all 9. Thoughts that you would be better off or of hurting yourself in some way: not at all Total score: 0 Depression Screening Interpretation: Negative Depression Screening Done: Yes 92623 - PHQ-9 Billing: Yes Source: Developed by Drs. Willie Murray, Gwendolyn Yu, Thomas Martin and colleagues, with an educational treasure from [employer]. Thrive Questionnaire Date Thrive assessed: 02/05/24 I am a: Patient What is your living situation today?: I have a steady place to live Within the past 12 months, did the food you bought not last and you didn't have the money to get more?: Never true Within the past 12 months, did you worry whether your food would run out before you got money to buy more?: Never true Do you have trouble paying for medicines?: No Do you have trouble getting transportation to medical appointments?: No Do you have trouble paying your heating and electricity bill?: No Do you have trouble taking care of your child, family member or friend?: No Do you have trouble with day-to-day activities such as bathing, preparing meals, shopping, managing finances, etc.?: No Are you currently unemployed and looking for a job?: No Are you interested in more education?: No Please select the resources that you would like help with: None Currently or been in a relationship where the following occur: No concerns reported THRIVE Score: 0 AUDIT C Alcohol Use Questionnaire (AUDIT-C) 1. How often do you have a drink containing alcohol?: 2-4 times a month 2. How many drinks containing alcohol do you have on a typical day when you are drinking?: 1 or 2 3. How often do you have six or more drinks on one occasion?: Never Total Score: 2 JOEY-7 AMB Questionnaire JOEY-7 Date JOEY - 7 assessed: 02/05/24 Feeling nervous, anxious, or on edge: 1 = Several days Not being able to stop or control worryin = Not at all Worrying too much about different things: 1 = Several days Trouble relaxin = Not at all Being so restless that it is hard to sit still: 0 = Not at all Becoming easily annoyed or irritable: 0 = Not at all Feeling afraid as if something awful might happen: 0 = Not at all Total JOEY-7 score (0-4 normal; 5-9 mild; 10-14 moderate; 15-21 severe): 2 Source: Developed by Drs. Willie Murray, Gwendolyn Yu, Thomas Martin and colleagues, with an educational treasure from [employer]. JOEY-7 Assessment Billing JOEY-7 Assessment Tool: JOEY-7 Assessment 79933 Physical exam (Primary Care) Vital Signs: Last Vital Signs Temp 98.6 F 02/05/24 09:08 Pulse 67 02/05/24 09:08 Resp 12 02/05/24 09:08 BP 102/60 02/05/24 09:08 Pulse Ox 99 02/05/24 09:08 Oxygen Delivery Method Room Air 02/05/24 09:08 BMI result Body Mass Index 22.5 Tobacco/Smoking Status: Tobacco use Status Tobacco use date assessed 02/05/24 02/05/24 09:02 Patient Tobacco Use Status Former Tobacco user 02/05/24 09:13 e-Cigarette/Vaping Use Never Used 02/05/24 09:12 PHQ-9: PHQ-9 Score PHQ-9: Total score 0 02/05/24 09:35 Depression Screening Interpretation: Negative Thrive Assessment: Date of Thrive Assessment Date Thrive assessed 02/05/24 02/05/24 09:13 Currently or been in a relationship where the following occur: No concerns reported Const Orientation/consciousness: patient oriented x3 HENMT Ears: hearing grossly normal bilaterally and TM's normal bilaterally General nose exam: No nasal polyps present Face and sinus: Yes sinuses nontender Mouth: Normal oral and palatal mucosa present Eyes Pupils: Equal, round and reactive pupils present EOM: EOMs intact bilaterally Neck Neck: Yes full ROM and Yes no lymphadenopathy Thyroid: Thyroid normal Chest Chest palpation & inspection: normal inspection of the chest Resp Auscultation: clear to auscultation bilaterally Cardio Rate: regular rate Rhythm: regular rhythm Heart sounds: S1 normal heart sound present and S2 normal heart sound present Peripheral pulses: Peripheral pulses 2+ throughout GI Other: Soft, nontender Auscultation: normal bowel sounds Rectal Exam - Female: deferred General: Yes no CVA tenderness Back/Spine/Pelvis Other: Nontender Back: no CVA tenderness Skin General skin exam: no rashes or lesions noted Neuro General: patient oriented x3, gait normal, CN's II-XI intact bilaterally and deep tendon reflexes 2+ bilaterally Cranial nerves: Yes Equal, round and reactive pupils present Motor exam (neuro): 5/5 motor strength present throughout Sensory Exam: double simultaneous stimulation for sensation normal Coordination: [id number] test normal and Romberg test negative Extrem General: Yes normal to inspection and Yes full ROM Psych Affect: normal affect Attitude: cooperative Thought process: Normal thought process present Thought content: Normal thought content present Insight: Good insight present (Psych) Judgement: Good judgement present (Psych) Coding Level of Care Code New Pt Prev Care 40-64y(01301) Diagnoses Routine general medical examination at a health care facility Z00.00 Other hyperlipidemia E78.49 Chronic neck pain M54.2; G89.29 Anemia, unspecified type D64.9 Anemia type: unspecified type Adrenal nodule E27.8 Additional Codes JOEY-7 Assessment Billing - JOEY-7 Assessment Tool: JOEY-7 Assessment 29501 ([id number]) Assessment & Plan Assessment & Plan (1) Routine general medical examination at a health care facility: Code(s): Z00.00 - Encounter for general adult medical examination without abnormal findings Plan: Health maintenance reviewed. Mammogram ordered. Bone density ordered. Labs ordered today. (2) Other hyperlipidemia: Code(s): E78.49 - Other hyperlipidemia Category: Medical Plan: States that this was diet controlled in the past. (3) Chronic neck pain: Code(s): M54.2 - Cervicalgia; G89.29 - Other chronic pain Category: Medical Plan: We will refill tramadol today. Follow up in 3-4 months. Sooner if needed (4) Anemia, unspecified: Code(s): D64.9 - Anemia, unspecified Category: Medical Qualifiers: Anemia type: unspecified type Qualified Code(s): D64.9 - Anemia, unspecified Plan: Reports a remote history of this and is not sure if she still is anemic. (5) Adrenal nodule: Code(s): E27.8 - Other specified disorders of adrenal gland Category: Medical Plan: Following with endocrinology Plan She will get records. Orders: Orders Comprehensive [place]. Panel Fast Today D64.9 - Anemia, unspecified, E78.49 - Other hyperlipidemia, G89.29 - Other chronic pain, M54.2 - Cervicalgia Lipid Panel Today D64.9 - Anemia, unspecified, E78.49 - Other hyperlipidemia, G89.29 - Other chronic pain, M54.2 - Cervicalgia Complete Blood Count Auto Diff Today D64.9 - Anemia, unspecified, E78.49 - Other hyperlipidemia, G89.29 - Other chronic pain, M54.2 - Cervicalgia UA CC w/rflx Micro + Cult Today D64.9 - Anemia, unspecified, E78.49 - Other hyperlipidemia, G89.29 - Other chronic pain, M54.2 - Cervicalgia, Z13.220 - Encounter for screening for lipoid disorders Vitamin B12 and Folate Today D64.9 - Anemia, unspecified, E78.49 - Other hyperlipidemia, G89.29 - Other chronic pain, M54.2 - Cervicalgia IRON PROFILE Today D64.9 - Anemia, unspecified, E78.49 - Other hyperlipidemia, G89.29 - Other chronic pain, M54.2 - Cervicalgia TSH reflex Free T4 Today D64.9 - Anemia, unspecified, E78.49 - Other hyperlipidemia, G89.29 - Other chronic pain, M54.2 - Cervicalgia Magnesium Today D64.9 - Anemia, unspecified, E78.49 - Other hyperlipidemia, G89.29 - Other chronic pain, M54.2 - Cervicalgia XR DEXA axial skeleton Today N95.1 - Menopausal and female climacteric states MM screening mammo BI Today Z12.31 - Encounter for screening mammogram for malignant neoplasm of breast Medications: Changed From tramadol 50 mg PO Q OTHER DAY PRN To tramadol 50 mg PO DAILY PRN 30 tabs 0RF pain 30 days
[2024-02-05 09:08] VITALS: BP 102/60; PULSE 67; RESP 12; TEMP 37; O2SAT 99; BMI 22.5
== END 2024-02-05 10:13 | disposition home or self-care (01) ==
PROVIDERS: PCP Physician Assistant; Visit Provider Physician Assistant
DX: Z00.00 Encounter for general adult medical examination without abnormal findings (principal); E78.49 Other hyperlipidemia; E27.8 Other specified disorders of adrenal gland; M54.2 Cervicalgia; G89.29 Other chronic pain; D64.9 Anemia, unspecified

== ENCOUNTER → 2024-02-05 08:57 | Outpatient (BNVA) | payer OTHER, SELFPAY | PROVIDERS: PCP Family Medicine; Visit Provider Physician Assistant | DX: Z00.01 Encounter for general adult medical examination with abnormal findings (principal); E78.49 Other hyperlipidemia; M54.2 Cervicalgia; G89.29 Other chronic pain; D64.9 Anemia, unspecified; E27.8 Other specified disorders of adrenal gland | CPT/HCPCS: 90471; 90656; 96127; 99386 ==

== ENCOUNTER 2024-02-10 08:27 | Outpatient (REF) | payer OTHER, SELFPAY ==
[2024-02-10 08:49] LABS: MANUAL DIFF FLAG NO
[2024-02-10 09:11] LABS: Basophils Absolute Auto 0.1 X10*3/uL (0.0-0.2); Basophils Percent Auto 1.7 % (0-2); Eosinophils Absolute Auto 0.3 X10*3/uL (0.0-0.4); Eosinophils Percent Auto 5.5 % (0-4); Hematocrit 38.8 % (37.0-47.0); Hemoglobin 12.5 g/dl (12.0-16.0); Imm Gran Abs Auto 0.01 X10*3/uL (0.00-0.03); Imm Gran Pct Auto 0.2 % (0.0-0.4); Lymphocytes Absolute Auto 1.3 X10*3/uL (1.2-4.9); Mean Corpuscular HGB Conc 32.2 g/dl (31.0-35.0); Mean Corpuscular Hemoglobin 28.3 pg (27.0-33.0); Mean Platelet Volume 10.3 fL (9.4-12.3); Monocytes Absolute Auto 0.6 X10*3/uL (0.1-1.2); Monocytes Percent Auto 10.5 % (2-11); Neutrophils Absolute Auto 3.2 x10*3/uL (2.0-8.3); Neutrophils Percent Auto 58.1 % (45-73); Platelet Count 315 X10*3/uL (160-400); Red Blood Count 4.41 X10*6/uL (4.20-5.50); Red Cell Distribution Width 13.5 % (11.0-16.0); White Blood Count 5.5 X10*3/uL (4.8-10.8)
[2024-02-10 10:16] LABS: Appearance Urine Clear; Color Urine Yellow; Glucose Urine UA Negative (Negative); Leukocyte Esterase Urine Negative (Negative); Nitrite Urine Negative (Negative); Specific Gravity - Urine 1.015 (1.005-1.025); Urine Blood Negative (Negative); Urine Ketones Negative (Negative); Urine Protein Negative (Neg-Trace)
[2024-02-10 10:46] LABS: Albumin Level 4.2 g/dL (3.5-5.0); Alkaline Phosphatase 73 U/L (39-117); Anion Gap 11 (12-20); Bilirubin Total 0.2 mg/dL (0.0-1.0); Blood Urea Nitrogen 6 mg/dL (9-16); Calcium 9.3 mg/dL (8.4-10.2); Carbon Dioxide 29 mmol/L (22-29); Chloride 105 mmol/L (96-108); Cholesterol 232 mg/dL (<200); Estimated Glomerular Filt Rate > 60; Glucose Fasting 96 mg/dL (60-99); HDL Cholesterol 48 mg/dL (>40); Iron 26 mcg/dL (30-160); LDL Cholesterol Calculated 147 mg/dL (<100); Magnesium 1.9 mg/dL (1.6-2.6); Percent Iron Saturation 10 % (15-50); Potassium 4.2 mmol/L (3.3-5.1); Sodium 141 mmol/L (135-145); Total Iron Binding Capacity 272 mcg/dL (228-428); Total Protein 7.1 g/dL (6.5-8.0); Triglycerides 187 mg/dL (<150); Unsaturated Iron Binding 246 ug/dL
[2024-02-10 11:10] LABS: Folate 8.5 ng/mL (> or = 4.0); TSH reflex Free T4 2.15 uIU/mL (0.32-4.0); Vitamin B12 258 pg/mL (200-900)
[2024-02-10 12:43] LABS: Alanine Aminotransferase 16 U/L (0-31); Aspartate Amino Transferase 23 U/L (5-31)
== END 2024-02-10 08:28 | disposition home or self-care (01) ==
LOC: HO.LAB 08:27
PROVIDERS: PCP Physician Assistant; Visit Provider Physician Assistant
DX: M54.2 Cervicalgia (principal); G89.29 Other chronic pain; D64.9 Anemia, unspecified; E78.49 Other hyperlipidemia
CPT/HCPCS: 36415; 80053; 80061; 81003; 82607; 82746; 83540; 83735; 84443; 85025

== ENCOUNTER 2024-02-27 15:17 | Outpatient (AMB) | payer OTHER, SELFPAY ==
--- NOTE | 2024-02-27 15:24 | A.OFFPC_ITS ---
Vital Signs 02/27/24 15:25 Height 5 ft 1.42 in Weight 123 lb 2 oz BMI 22.9 BP 108/68 Blood Pressure Location Lt brachial Position Sitting Pulse 78 Pulse Source Pulse Oximeter Temp 98.2 F Temp Source Oral Pulse Oximetry (%) 99 Oxygen Delivery Method Room Air Intake Visit Reasons: Cough Intake Note: Cough Allergies No Known Allergies Allergy (Verified 02/27/24 15:24) Tobacco use date assessed: 02/05/24 Dental Screening Dental Screen Date: 02/05/24 HPI Cough HPI Details Patient is a 59-year-old female who presents today with complaints of a cough. She states that she has had a cough for last 6 months. It is productive with clear sputum. It is worse at night. Sometimes she will have a slight wheeze with it. When she lays down she feels like she is up all night spinning out her sputum. No sinus pain, pressure, PND. No fever or chills. No new pets, plants or new environment. No GERD that she is aware of. She has tried Claritin what she thinks was somewhat helpful but everything persists. She denies any abdominal pain, nausea, vomiting, weight loss. No night sweats. No swelling in her neck. No difficulty swallowing. Her main concern is that she could have COPD. Her mother has COPD. Patient denies any smoking history or significant secondhand smoke exposure. 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 Current occupational exposures/hazards: No Cognitive needs: No Hearing needs: No Vision needs: No Questionnaire Thrive Questionnaire Date Thrive assessed: 01/30/24 I am a: Patient What is your living situation today?: I have a steady place to live Within the past 12 months, did the food you bought not last and you didn't have the money to get more?: Never true Within the past 12 months, did you worry whether your food would run out before you got money to buy more?: Never true Do you have trouble paying for medicines?: No Do you have trouble getting transportation to medical appointments?: No Do you have trouble paying your heating and electricity bill?: No Do you have trouble taking care of your child, family member or friend?: No Do you have trouble with day-to-day activities such as bathing, preparing meals, shopping, managing finances, etc.?: No Are you currently unemployed and looking for a job?: No Are you interested in more education?: No Please select the resources that you would like help with: None Currently or been in a relationship where the following occur: No concerns reported THRIVE Score: 0 JOEY-7 AMB Questionnaire JOEY-7 Date JOEY - 7 assessed: 02/05/24 Becoming easily annoyed or irritable: 3 = Nearly every day Source: Developed by Drs. Willie Murray, Gwendolyn Yu, Thomas Martin and colleagues, with an educational treasure from [employer]. Physical exam (Primary Care) Vital Signs: Last Vital Signs Temp 98.2 F 02/27/24 15:25 Pulse 78 02/27/24 15:25 BP 108/68 02/27/24 15:25 Pulse Ox 99 02/27/24 15:25 Oxygen Delivery Method Room Air 02/27/24 15:25 BMI result Body Mass Index 22.9 Tobacco/Smoking Status: Tobacco use Status Tobacco use date assessed 02/05/24 02/27/24 15:28 Patient Tobacco Use Status Former Tobacco user 02/27/24 15:28 e-Cigarette/Vaping Use Never Used 02/27/24 15:28 Thrive Assessment: Date of Thrive Assessment Date Thrive assessed 01/30/24 02/27/24 15:28 Currently or been in a relationship where the following occur: No concerns reported Const Orientation/consciousness: patient oriented x3 HENMT Ears: hearing grossly normal bilaterally Neck Thyroid: Thyroid normal Lymphatic: no lymphadenopathy noted Resp Auscultation: clear to auscultation bilaterally Cardio Rate: regular rate Rhythm: regular rhythm Heart sounds: S1 normal heart sound present and S2 normal heart sound present GI Inspection: Yes normal to inspection Palpation (GI): Soft to palpation and Other GI palpation findings present (nontender, no cva tenderness) Auscultation: normoactive bowel sounds Rectal Exam - Female: deferred Skin General skin exam: no rashes or lesions noted Neuro General: patient oriented x3, gait normal and no focal motor deficits Coding Level of Care Code Est Pt Level 3 (60020) Complex EM visit Add On G2211 Diagnoses Cough R05.9 Assessment & Plan Assessment & Plan (1) Cough: Code(s): R05.9 - Cough, unspecified Category: Medical Plan: We will trial omeprazole. If no improvement after a few weeks she will discontinue the omeprazole and switch from Claritin to Zyrtec. Chest x-ray and PFTs ordered. We will follow up pending test results. We will follow up in 4 weeks. Sooner if needed. Orders: Orders XR chest 2V Today R05.9 - Cough, unspecified PFT pulmonary function test Today R05.9 - Cough, unspecified Medications: New omeprazole 20 mg PO BID 60 caps 0RF
[2024-02-27 15:25] VITALS: BP 108/68; PULSE 78; TEMP 36.8; O2SAT 99; BMI 22.9
== END 2024-02-27 15:55 | disposition home or self-care (01) ==
LOC: HO.HMCFM 15:18
PROVIDERS: PCP Physician Assistant; Visit Provider Physician Assistant
DX: R05.9 Cough, unspecified (principal)

== ENCOUNTER → 2024-02-27 15:17 | Outpatient (BNVA) | payer OTHER, SELFPAY | PROVIDERS: PCP Physician Assistant; Visit Provider Physician Assistant | DX: R05.9 Cough, unspecified (principal) | CPT/HCPCS: 99212 ==

== ENCOUNTER 2024-04-08 09:32 | Outpatient (REF) | payer OTHER, SELFPAY ==
--- NOTE | ~2024-04-08 | MM_ITS ---
EXAMINATION: BONE DENSITOMETRY CLINICAL INDICATION: Menopause. COMPARISON: This is the patient's baseline examination. TECHNIQUE: Using a [employer] DXA System (software version: 13.1) manufactured by [employer], dual-energy x-ray absorptiometry was performed of the lumbar spine and left hip. The images are of good technical quality. Summary results are attached. FINDINGS: LEFT FEMUR, NECK: BMD 0.801 g/cm2, Z-score -0.5, T-score -1.7, osteopenia. LEFT FEMUR, TOTAL: BMD 0.741 g/cm2, Z-score -1.2, T-score -2.1, osteopenia. AP SPINE L1-L4: BMD 0.854 g/cm2, Z-score -1.5, T-score -2.7, osteoporosis. IDENTIFIED RISK FACTORS: Early menopause, history of fracture (adult), left oophorectomy, hysterectomy, secondary osteoporosis. HISTORY OF FRACTURE: Spine. MEDICATIONS: Multivitamin. MM/XR DEXA axial skeleton IMPRESSION: 1. DIAGNOSIS: Severe osteoporosis based on the lowest T-score value of -2.7 in the lumbar spine and history of fracture of the spine applying World Health Organization criteria. 2. 10-YEAR FRACTURE RISK PREDICTION, FRAX: According to the guidelines, FRAX calculation should only be performed on patients in the osteopenia bone density category. Therefore, FRAX was not performed on this patient. 3. Treatment Recommendations: NOF guidelines recommend consideration for treatment in postmenopausal women and men age 50 and older presenting with the following: -A hip or vertebral (clinical or morphometric) fracture. -T-score less than or equal to -2.5 at the femoral neck or spine after appropriate evaluation to exclude secondary causes. -Low bone mass at the hip or spine and a 10-year fracture probability by FRAX of greater than or equal to 3% for hip fracture or greater than or equal to 20% for major osteoporotic fracture based on the [place] adapted WHO algorithm. 4. Other Recommendations: All treatment decisions require clinical judgment and consideration of individual patient factors, including patient preferences, comorbidities, previous drug use, risk factors not captured in the FRAX model (e.g. frailty, falls, vitamin D deficiency, increased bone turnover, interval significant decline in bone density) and possible under or overestimation of fracture risk by FRAX. Additional medical evaluation for secondary cause of low bone mineral density may be appropriate. FUTURE SCAN RECOMMENDATION: People with diagnosed cases of osteoporosis or at high risk for fracture should have regular bone mineral density tests. For patients eligible for Medicare, routine testing is allowed once every 2 years. The testing frequency can be increased to one year for patients who have rapidly progressing disease, those who are receiving or discontinuing medical therapy to restore bone mass, or have additional risk factors. Electronically signed by: Jaylan Lerma MD 04/08/2024 11:02 AM [facility]
--- OUTSIDE RECORDS SUMMARY | 2024-04-08 09:36 | XMS_ITS | Continuity of Care Document ---
Author Organization [facility] Address [address] [facility] [address] [place], [place] Phone [phone] Care Team Providers Care Lay Out And Detail Drafter Name Role Phone Bette Antonio MD Care Team Information Securities Lending Trader U navailable ADELINA MENDEZ M.D. Care Team Information Rec eiver Unavailable Bette Antonio MD Primary Care Physician Unavailab le Problems Active Problems Provider Date Disorder of adrenal gland Christina Drew Onset: 2019 Social History Type Date Description Comments Sex Unknown Allergies and adverse reactions Description No Known Drug Allergies Medications Active Medications SIG Qnty Indications Ordering Provider Date Fbovzmqnixxzj1qk Tablets 1 tab by mouth @11:00pm 1tabs E27.8 Adelina Mendez M.D. 02/26/2022 Calcium 600+[id number]-Ectt Tablets 1 tab by mouth once a day Unknown Ilok31wb Tablets ?dose Unknown Multi Vitamin DailyTablets 1 by mouth every day Unknown Tramadol KBH37wm Tablets Zohaib Ledesma MD History Medications Cknlnithnhkra2wo Tablets 1 tab by mouth @11:00pm 1tabs Adelina Mendez M.D. 02/03/2021 - 02/20/2021 Euhsdd59fm Capsules 1 bid Unknown - 02/20/2021
== END 2024-04-08 09:33 | disposition home or self-care (01) ==
LOC: HO.MAMMO 09:32
PROVIDERS: PCP Physician Assistant; Visit Provider Physician Assistant
DX: Z12.31 Encounter for screening mammogram for malignant neoplasm of breast (principal); Z13.820 Encounter for screening for osteoporosis; Z78.0 Asymptomatic menopausal state
CPT/HCPCS: 77063; 77067; 77080

== ENCOUNTER → 2024-04-08 09:45 | Outpatient (BNV) | payer OTHER, SELFPAY | PROVIDERS: PCP Physician Assistant; Visit Provider Internal Medicine | DX: Z12.31 Encounter for screening mammogram for malignant neoplasm of breast (principal) | CPT/HCPCS: 77063; 77067 ==

== ENCOUNTER 2024-04-17 08:50 | Outpatient (REF) | payer OTHER, SELFPAY ==
--- NOTE | 2024-04-17 08:57 | PFT_ITS ---
Flows: FEV1: 102 % of predicted at 2.37 L FVC: 107 % of predicted at 3.11 L FEV1/FVC: 76 % Bronchodilator response: Present in small to medium airways only. Volumes: Total lung capacity: 100 % of predicted at 4.62 L Residual volume: 99 % of predicted at 1.47 L Slow vital capacity: 100 % of predicted at 3.15 L Expiratory reserve volume: 127 % of predicted at 0.98 L Diffusion capacity: Normal Impression: No obstructive or restrictive ventilatory defect. Bronchodilator response is present in small to medium airways only. MTDD
[2024-04-17 09:56] VITALS: PULSE 61; O2SAT 99
== END 2024-04-17 08:51 | disposition home or self-care (01) ==
LOC: HO.RESP 08:50
PROVIDERS: PCP Physician Assistant; Visit Provider Physician Assistant
DX: R05.9 Cough, unspecified (principal)
CPT/HCPCS: 94010; 94640; 94727; 94729

== ENCOUNTER → 2024-04-17 08:57 | Outpatient (BNV) | payer OTHER, SELFPAY | PROVIDERS: PCP Physician Assistant; Visit Provider Internal Medicine Pulmonary Disease | DX: R05.9 Cough, unspecified (principal) | CPT/HCPCS: 94060; 94727; 94729 ==

== ENCOUNTER 2024-05-19 15:26 | Outpatient (AMB) | payer OTHER, SELFPAY ==
--- NOTE | 2024-05-19 15:29 | MHC.OFFVIS ---
Vital Signs 05/19/24 15:35 Height 5 ft 1.83 in Weight 123 lb 0.287 oz BMI 22.6 BP 100/54 L Blood Pressure Location Rt brachial Position Sitting Pulse 101 H Pulse Source Pulse Oximeter Intake Visit Reasons: Age-related osteoporosis without current pathology Intake Note: New patient internally referred by PCP for Age-related Osteoporosis. Bench Hand Machine Required: No Accompanied by: Self / Same As Patient Allergies No Known Allergies Allergy (Verified 05/19/24 15:36) Medication List - Last Reconciled 05/19/24 by Willie Pillai MD hydroxyzine HCl 50 mg PO BEDTIME PRN omeprazole 20 mg PO BID tramadol 50 mg PO DAILY PRN 30 days HPI Comments Details: 59 YO Female is seen in consultation at the request of PCP for Osteoporosis. First diagnosed in just learned .Saw endo for adrenal mass- Dr. Mendez but not for osteoporosis Not Received treatment in the past history of compression fracture 15 yrs ago while skating or [place]. Has several servings of dietary calcium per day in the form of milk, cheese , cabbage , yogurt . Takes Calcium supplement 600 mg daily in divided doses. Takes 200 IU of Vitamin D daily in combination . On PPI recently , no anticoagulant, no antiepileptic orno glucocorticoid medication. Does weight bearing exercise days per week in the form of walking, stairs . 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 UTD on dental cleanings and sees dentist every 6 months. No planned upcoming dental work or extractions. DXA dated 04/08/24 :INDINGS: LEFT FEMUR, NECK: BMD 0.801 g/cm2, Z-score -0.5, T-score -1.7, osteopenia. LEFT FEMUR, TOTAL: BMD 0.741 g/cm2, Z-score -1.2, T-score -2.1, osteopenia. AP SPINE L1-L4: BMD 0.854 g/cm2, Z-score -1.5, T-score -2.7, osteoporosis. IDENTIFIED RISK FACTORS: Early menopause, history of fracture (adult), left oophorectomy, hysterectomy, secondary osteoporosis. HISTORY OF FRACTURE: Spine. MEDICATIONS: Multivitamin. MM/XR DEXA axial skeleton IMPRESSION: 1. DIAGNOSIS: Severe osteoporosis based on the lowest T-score value of -2.7 in the lumbar spine and history of fracture of the spine applying Labs: [facility] Medical History (Updated 04/08/24 @ 14:26 by Ashley Narvaez PA-C) Adrenal nodule Other hyperlipidemia Anxiety Other chronic pain Surgical History (Updated 05/19/24 @ 15:36 by Shirin Gr [facility]) History of bilateral tubal ligation Hx of hysterectomy Family History (Updated 05/19/24 @ 15:37 by Shirin Gr [facility]) Mother COPD (chronic obstructive pulmonary disease) Mild scoliosis Father Lung cancer Social History (Updated 02/05/24 @ 09:12 by Sobia Perez [facility]) Housing: House Patient Tobacco Use Status: Former Tobacco user Cigarette Packs Per Day: 0.5 Years Smoked: 10 e-Cigarette/Vaping Use: Never Used Second Hand Smoke Exposure: No service: No Current occupational status: employed and unemployed 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 Current occupational exposures/hazards: No Cognitive needs: No Hearing needs: No Vision needs: No Physical Exam There are no Cushingoid features. Absence of blue sclera. Absence of kyphosis. Thyroid gland is of nl size and weighs 15 gms. There are no thyroid nodules palpated. Lungs CTA. Heart S1 S2 Reg R/R Abdominal exam benign. Muscle strength 5/5 . Examination of spine reveals absence of tenderness on palpation Assessment & Plan Assessment & Plan (1) Osteoporosis: Code(s): M81.0 - Age-related osteoporosis without current pathological fracture Category: Medical Plan: This is a 59-year-old white female with a history of osteoporosis with partial secondary workup. Plan is to complete the secondary workup by checking a phosphorus level, 24 hour urine for calcium and creatinine, 25 hydroxy vitamin-D, SPEP, urine immunofixation. Will ensure 1200 mg of calcium and vitamin D3 2000 IU per day. Assuming secondary workup is negative, could consider pharmacologic therapy with transdermal estrogen which might relieve the hot flashes and stabilize the bone density. This could be done by supportability engineer Orders: Orders Phosphorus Today M81.0 - Age-related osteoporosis without current pathological fracture Calcium, 24 Hr Ur Today M81.0 - Age-related osteoporosis without current pathological fracture Protein Electrophoresis, Serum Today M81.0 - Age-related osteoporosis without current pathological fracture Vitamin D 25-OH Total Today M81.0 - Age-related osteoporosis without current pathological fracture Creatinine, 24 Hr Group Today M81.0 - Age-related osteoporosis without current pathological fracture Immunofixation, Random Urine Today M81.0 - Age-related osteoporosis without current pathological fracture Coding Level of Care Code New Pt Level 4 (07989) Diagnoses Osteoporosis M81.0
[2024-05-19 15:35] VITALS: BP 100/54; PULSE 101; BMI 22.6
--- OUTSIDE RECORDS SUMMARY | 2024-05-19 16:22 | XMS_ITS | Continuity of Care Document ---
Author Organization [facility] Address [address] [place], [place] Phone [phone] Care Team Providers Care Safety Risk Lead Name Role Phone Bette Antonio MD Care Team Information [employer]fdc Solution Architect U navailable ADELINA MENDEZ M.D. Care Team Information Rec eiver Unavailable Bette Antonio MD Primary Care Physician Unavailab le Problems Active Problems Provider Date Disorder of adrenal gland Christina Drew Onset: 2019 Social History Type Date Description Comments Sex Unknown Allergies and adverse reactions Description No Known Drug Allergies Medications Active Medications SIG Qnty Indications Ordering Provider Date Wyhvyhvepbzyj2dn Tablets 1 tab by mouth @11:00pm 1tabs E27.8 Adelina Mendez M.D. 02/26/2022 Calcium 600+[id number]-Lqgl Tablets 1 tab by mouth once a day Unknown Gsrx04la Tablets ?dose Unknown Multi Vitamin DailyTablets 1 by mouth every day Unknown Tramadol RLE03wv Tablets Zohaib Ledesma MD History Medications Tmxplzqumomif0dq Tablets 1 tab by mouth @11:00pm 1tabs Adelina Mendez M.D. 02/03/2021 - 02/20/2021 Kglhwd12yl Capsules 1 bid Unknown - 02/20/2021
--- OUTSIDE RECORDS SUMMARY | 2024-05-19 16:23 | XMS_ITS | Data Portability ---
Author Organization [place] - [facility] Medical [facility] [place] Address [address] [place] [address] Care Team Providers Care Appliance Worker Name Role Phone MARISA CHANDLER Primary Care Provider [phone] MARISA MENDOZA Referring Provider [phone] Assessment No assessment recorded. Plan of Treatment Reminders Order Date Submit Date Provider Last Modified By Organization Details Last Modified Time Details Appointments None recorded. Lab None recorded. Referral None recorded. Procedures None recorded. Surgeries None recorded. Imaging None recorded. Medication Orders tramadol 50 mg tablet 2021 022 [facility] [address], [address] [place], [address], 2 11:44:05 tramadol 50 mg tablet 2022 023 [facility] [address], [address] [place], [address], 3 15:01:21 tramadol 50 mg tablet 2022 023 [facility] [address], [address] [place], [address], 3 10:34:52 tramadol 50 mg tablet 2022 023 [facility] [address], [address] [place], [address], 3 11:14:40 tramadol 50 mg tablet 2022 023 [facility], [address] [facility], [place], [address], 10:53:23 Patient TargetsNo targets recorded. Patient Instructions Encounter Date Encounter Id Patient Instructions Last Modified By Organization Details Last Modified Time 12/18/2021 [id number] . PHYSICAL THERAPY: pt encouraged to stay active. failed PT -6 weeks august and sep 2018 . continue home exercises .pt compliant w HEP for the last several months. PT - early 2020 2. BEHAVIORAL THERAPY: denies depression/psych issues 3. MEDICATIONS: continue tramadol (2- 3/ week ), and prn flexeril (2-3 / weeks ) . failed mobic and celebrex, lyrica 4. INTERVENTIONS: none 5. FUNCTION: pain moderately affects her function, some improvement w meds 6. PAIN ASSESSMENT: improved w meds/stable 7. COMPLIANCE: no issues 8. WEIGHT LOSS/DIET/SMOKING CESSATION: counseled 9. LABS/RADIOLOGY: 2019 MRI of the C spine reviewed. 11. REFERRALS : none 10. FOLLOW UP: 12 weeks 12. OPIOID RISK ASSESSMENT: MILD pt w chronic neck/upper back pain [email or web address] Not available 12/18/2021 11:38:10 05/04/2022 [id number] . PHYSICAL THERAPY: pt encouraged to stay active. failed PT -6 weeks august and sep 2018 . continue home exercises .pt compliant w HEP for the last several months. PT - early 2020 2. BEHAVIORAL THERAPY: denies depression/psych issues 3. MEDICATIONS: continue tramadol (2- 3/ week ), and prn flexeril (2-3 / weeks ) . failed mobic and celebrex, lyrica 4. INTERVENTIONS: none 5. FUNCTION: pain moderately affects her function, some improvement w meds 6. PAIN ASSESSMENT: improved w meds/stable 7. COMPLIANCE: no issues 8. WEIGHT LOSS/DIET/SMOKING CESSATION: counseled 9. LABS/RADIOLOGY: 2019 MRI of the C spine reviewed. 11. REFERRALS : none 10. FOLLOW UP: 12 weeks 12. OPIOID RISK ASSESSMENT: MILD pt w chronic neck/upper back pain [email or web address] Not available 05/04/2022 15:00:13 07/27/2022 [id number] . PHYSICAL THERAPY: pt encouraged to stay active. failed PT -6 weeks august and sep 2018 . continue home exercises .pt compliant w HEP for the last several months. PT - early 2020 2. BEHAVIORAL THERAPY: denies depression/psych issues 3. MEDICATIONS: continue tramadol (2- 3/ week ), and prn flexeril (2-3 / weeks ) . failed mobic and celebrex, lyrica 4. INTERVENTIONS: none 5. FUNCTION: pain moderately affects her function, some improvement w meds 6. PAIN ASSESSMENT: improved w meds/stable 7. COMPLIANCE: no issues 8. WEIGHT LOSS/DIET/SMOKING CESSATION: counseled 9. LABS/RADIOLOGY: 2019 MRI of the C spine reviewed. 11. REFERRALS : none 10. FOLLOW UP: 12 weeks 12. OPIOID RISK ASSESSMENT: MILD pt w chronic neck/upper back pain kkalava Not available 07/27/2022 10:33:46 10/19/2022 [id number] . PHYSICAL THERAPY: pt encouraged to stay active. failed PT -6 weeks august and sep 2018 . continue home exercises .pt compliant w HEP for the last several months. PT - early 2020 2. BEHAVIORAL THERAPY: denies depression/psych issues 3. MEDICATIONS: continue tramadol (2- 3/ week ), and prn flexeril (2-3 / weeks ) . failed mobic and celebrex, lyrica 4. INTERVENTIONS: none 5. FUNCTION: pain moderately affects her function, some improvement w meds 6. PAIN ASSESSMENT: improved w meds/stable 7. COMPLIANCE: no issues 8. WEIGHT LOSS/DIET/SMOKING CESSATION: counseled 9. LABS/RADIOLOGY: 2019 MRI of the C spine reviewed. 11. REFERRALS : none 10. FOLLOW UP: 12 weeks 12. OPIOID RISK ASSESSMENT: MILD pt w chronic neck/upper back pain [email or web address] Not available 10/19/2022 11:11:07 01/25/2023 [id number] 1. PHYSICAL THERAPY: pt encouraged to stay active. failed PT -6 weeks august and sep 2018 . continue home exercises .pt compliant w HEP for the last several months. 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 BEHAVIORAL THERAPY: denies depression/psych issues 3. MEDICATIONS: continue tramadol (2- 3/ week ), and prn flexeril (2-3 / weeks ) failed mobic and celebrex, lyrica 4. INTERVENTIONS: none 5. FUNCTION: pain moderately affects her function, improvement w meds 6. PAIN ASSESSMENT: improved w meds/stable 7. COMPLIANCE: no issues - mpat verified and appropriate 8. WEIGHT LOSS/DIET/SMOKING CESSATION: counseled 9. LABS/RADIOLOGY: 2019 MRI of the C spine reviewed. 11. REFERRALS : none 10. FOLLOW UP: 12 weeks 12. OPIOID RISK ASSESSMENT: MILD pt w chronic neck/upper back pain radiating to b/l scapula- stable. i agree - kk kkalava Not available 01/25/2023 10:58:53 Reason for Referral None Reported. Problems Name Problem SNOMED Code Status Onset Date Resolution Date Notes Provider Name and Address Organization Details Recorded Time Dysfunctional uterine bleeding Active Not Available [facility] 3 03:06:19 Endometriosis (clinical) 006728038 Active Not Available [facility] 3 03:06:19 Abdominal pain 03236723 Active Rubens Donato MD [address] [place] [address], [phone] , [facility] 5 10:15:06 Irregular periods 58997200 Active Not Available [facility] 3 03:06:19 Cyst of ovary 15643429 Active Ananya Canseco LPN [facility] 5 15:20:59 Solitary sacroiliitis 267389008 Active Zurdo Ledesma MD [address] [place] [address], [phone] , [facility] 5 12:14:21 Greater trochanteric pain syndrome 0070133 Active Zurdo Ledesma MD [address] [place] [address], [phone] , [facility] 5 15:56:14 Myofascial pain 210897498 Nicloas Ledesma MD [address] [place] [address], [address] , [facility] 5 16:15:57 Arthropathy of lumbar facet joint 307541426 Nicolas Ledesma MD [address] [place] [address], [phone] , [facility] 5 12:14:21 Hip pain 18243398 Active Zurdo Ledesma MD [address] [place], [place] [address], [address] , [facility] 5 12:14:21 Problem Notes None recorded. Procedures Surgical History Date Name Laterality Status Provider Name and Address Organization Details Recorded Time 04/08/20 20 Trigger Point Injection completed Zurdo Ledesma MD [address] [place] [address] [place], [address], [facility] 04/08/2020 12:04:18 10/11/19 19 Trigger Point Injection completed Zurdo Ledesma MD [address] [place], [place] [address], [address], [facility] 10/10/2018 12:26:05 02/07/20 17 hysterectomy, vaginal completed Briana Basilio MA [facility] 03/12/2017 14:11:59 09/08/19 15 Trigger Point Injection completed Zurdo Ledesma MD [address] [place], [place] [address], [place], [address], [facility] 09/07/2014 16:01:05 07/21/19 15 Trigger Point Injection completed Zurdo Ledesma MD [address] [place], [place] [address], [place], [address], [facility] 07/20/2014 16:20:03 07/10/19 13 laparoscopy completed Hellen Vega RN [facility] 07/14/2012 11:54:12 05/30/19 13 established patient counseling (15-24 minutes) completed Rubens Donato MD [address] [place] [address] [place], [address], [facility] 05/30/2012 14:27:44 12/28/19 12 established patient counseling (15-24 minutes) completed Rubens Donato MD [address] [place], [place] [address], [address], [facility] 12/28/2011 14:52:08 08/17/19 09 Hysteroscopy ablation completed Hellen Vega RN [facility] 06/21/2014 14:18:31 04/22/18 91 tubal ligation completed Hellen Vega RN [facility] 06/21/2014 14:18:31 Imaging Results None recorded. Procedure Notes None recorded. Medical Equipment None Reported. Allergies Allergen ID Allergen Name Allergen Category Reaction Reaction Severity Criticality Documentation Date Start Date Code Code System Note Provider Name and Address Organization Details Recorded Time 471236 Lyrica medicatio n Not available Not available Not available 10/14/2019 35422 1 RxNorm 150 mg cause s pt to feel off kilte r and dizzy Patience Bryant RN [facility], [facility] 0 11:16:42 Medications Name Sig Start Date Stop Date Status Note LastModified by Organization Details LastModified Time hydroco/apa p tab 5-500mg active Not Available Not Available Not Available tramadol hcl tab 50mg active Not Available Not Available Not Available ibuprofen tab 800mg active Not Available Not Available No t Available hydroco/apa p tab 5-325mg active Not Available Not Available Not Available lupron depot inj 3.75mg active Not Available Not Available Not Available ibuprofen tab 600mg 01/09 completed Not Available Not Available Not Available celecoxib 200 mg capsule TAKE 1 CAPSULE BY MOUTH TWICE DAILY NEEDED FOR 30 DAYS 06/28 completed Not Available Not Available Not Available meloxicam 15 mg tablet Take 1 tablet every day by oral route as directed for 15 days. 04/08 completed Not Available Not Available Not Available tramadol 50 mg tablet Take 1 tablet every other day by oral route as needed for 28 days. 2022 active Not Available Not Available Not Avai lable triamcinolo ne acetonide 0.1 % topical cream active Not Available Not Available Not Available ofloxacin 0.3 % ear drops INSTILL 5 DROPS INTO LEFT EAR TWICE DAILY FOR 7 DAYS 03/20 completed Not Available Not Available Not Available methocarbam ol 750 mg tablet Take 1 tablet 3 times a day by oral route as needed for 30 days. 01/09 completed Not Available Not Available Not Available dexamethaso ne 1 mg tablet TAKE 1 TABLET BY MOUTH @ 11PM active Not Available Not Available No t Available baclofen 10 mg tablet Take 1 tablet twice a day by oral route as needed for 15 days. 03/12 completed Not Available Not Available Not Available Lupron Depot 3.75 mg intramuscul ar syringe kit Inject 1 kit by intramusc ular route. 2012 active Not Available Not Available Not Avai lable hydroxyzine HCl 25 mg tablet TAKE 1 TABLET BY MOUTH EVERY 8 HOURS NEEDED active Not Available Not Available No t Available Cheratussin AC 10 mg-100 mg/5 mL oral liquid active Not Available Not Available Not Available ibuprofen 600 mg tablet active Not Available Not Available Not Available methylpredn isolone 4 mg tablets in a dose pack 10/07 completed Not Available Not Available Not Available fluticasone propionate 50 mcg/actuati on nasal spray,suspe nsion active Not Available Not Available Not Available tobramycin 0.3 %-dexametha sone 0.1 % eye drops,suspe nsion 03/20 completed Not Available Not Available Not Available cyclobenzap rine 5 mg tablet TAKE 1 TABLET BY MOUTH ONCE DAILY NEEDED 2021 active Not Available Not Available Not Avai lable pregabalin 75 mg capsule Take 1 capsule twice a day by oral route as needed for 28 days. 10/07 completed Not Available Not Available Not Available pregabalin 100 mg capsule TAKE 1 CAPSULE BY MOUTH TWICE DAILY DIRECTED 03/20 completed Not Available Not Available Not Available pregabalin 150 mg capsule Take 1 capsule twice a day by oral route as directed for 30 days. 12/03 completed Not Available Not Available Not Available Tylenol active Not Available Not Avail able Not Available Lo Loestrin Fe 1 mg-10 mcg (24)/10 mcg (2) tablet TAKE ONE TABLET BY MOUTH ONCE DAILY DIRECTED 01/09 completed Not Available Not Available Not Available Conversion Sound COVID-19 Vaccine (PF) 30 mcg/0.3 mL IM susp (purple) PHARMACY ADMINIST[facility] RED active Not Available Not Available No t Available Vitals Date Recorded Body height Provider Name an d Address Organization Details Last Updated DateTime 10/19/2022 157.48 cm Heidimatti Pineda [facility] 10/19/2022 10:52:15 Date Recorded Heart rate Provider Name an d Address Organization Details Last Updated DateTime 10/19/2022 64 /min Heidi Pineda [facility] 10/19/2022 10:53:45 Date Recorded Body height Provider Name an d Address Organization Details Last Updated DateTime 01/25/2023 157.48 cm Margie Guerra CNA [facility] 01/25/2023 10:45:22 Date Recorded Heart rate Provider Name an d Address Organization Details Last Updated DateTime 01/25/2023 55 /min Margie Guerra CONFIGURATION ENGINEER [facility] 01/25/2023 10:46:28 Date Recorded Body height Provider Name an d Address Organization Details Last Updated DateTime 12/18/2021 157.48 cm Lindsayaparna Doy [facility] 12/18/2021 11:06:02 Date Recorded Heart rate Provider Name an d Address Organization Details Last Updated DateTime 12/18/2021 66 /min Lindsay Loo [facility] 12/18/2021 11:07:08 Date Recorded Body height Provider Name an d Address Organization Details Last Updated DateTime 05/04/2022 157.48 cm Keyla Nolasco MA [facility] 05/04/2022 14:26:21 Date Recorded Heart rate Provider Name an d Address Organization Details Last Updated DateTime 05/04/2022 64 /min Keyla Nolasco MA [facility] 05/04/2022 14:26:28 Date Recorded Body height Provider Name an d Address Organization Details Last Updated DateTime 07/27/2022 157.48 cm Keyla Nolasco MA [facility] 07/27/2022 10:09:54 Date Recorded Heart rate Provider Name an d Address Organization Details Last Updated DateTime 07/27/2022 71 /min Keyla Nolasco MA [facility] 07/27/2022 10:17:57 Date Recorded Systolic blood pressure Diastolic blood pressure Provider Name and Address Organization Details Last Updated DateTime 10/19/2022 112 mm[Hg] 69 mm[Hg] Heidi Pineda [facility] 10/19/2022 10:53:42 Date Recorded Systolic blood pressure Diastolic blood pressure Provider Name and Address Organization Details Last Updated DateTime 01/25/2023 122 mm[Hg] 76 mm[Hg] Margie Guerra CONFIGURATION ENGINEER [facility] 01/25/2023 10:46:38 Date Recorded Systolic blood pressure Diastolic blood pressure Provider Name and Address Organization Details Last Updated DateTime 12/18/2021 114 mm[Hg] 68 mm[Hg] Lindsay Loo [facility] 12/18/2021 11:07:05 Date Recorded Systolic blood pressure Diastolic blood pressure Provider Name and Address Organization Details Last Updated DateTime 05/04/2022 103 mm[Hg] 66 mm[Hg] Keyla Nolasco MA [facility] 05/04/2022 14:26:36 Date Recorded Systolic blood pressure Diastolic blood pressure Provider Name and Address Organization Details Last Updated DateTime 07/27/2022 117 mm[Hg] 68 mm[Hg] Keyla Nolasco MA [facility] 07/27/2022 10:17:54 Social History Question Answer Notes LastModified by Organizat ion Details LastModified Time Tobacco Smoking Status [facility] 12/[facility]/2011 14:41:48 What Is Your Level Of Alcohol Consumption? Occasional Information not available 12/03/2011 Education 2 Year College [email or web address] Information not available 08/29/2018 Work Status Part-time [email or web address] Information not available 06/16/2014 Living Situation With Spouse W/ Children [email or web address] Information not available 06/16/2014 Disabled? If Yes, How Long? 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 No [email or web address] Information not available 06/16/2014 Alcohol Use Yes Occasional Information not available 06/16/2014 Do You Currently Or Have You Ever Used Recreational Drugs? If Yes, Specify No [email or web address] Information not available 06/16/2014 Any Addiction Or Substance/drug/ alcohol Abuse Issues? If Yes, Specify No [email or web address] Information not available 06/16/2014 Are You A Past Or Present Victim Of Abuse? No Information not available 12/03/2011 Illicit Drugs No Informatio n not available 12/03/2011 Pain Contract/Contro lled Substances No [email or web address] Information not available 06/16/2014 Marital Status [email or web address] Informati on not available 12/03/2011 What Was The Date Of Your Most Recent Tobacco Screening? 08/29/2018 Information not available 11/13/2018 Are You Sexually Active? Yes Information not available 12/03/2011 Sex: Female Functional Status None recorded. Mental Status None recorded. Family History Relationship Description Onset Age of this Age Resolved Age Notes LastModified by Organization Details LastModified Time Mother Osteoporosis [email or web address] Not avail able 09/27/2015 14:43:48 Mother Chronic obstructive pulmonary disease previo usly record ed as chroni c obstru ctive pulmon alvarez diseas e bdegrace Not available 09/27/2015 14:43:48 Mother Cataract [email or web address] Not available 09/27/2015 14:43:48 Father Disease of liver bdegrace Not available 2015 14:43:48 Sister Asthma [email or web address] Not available 0 09/27/2015 14:43:48 Sister Sciatica bdegrace Not available 09/27/2015 14:43:48 Notes:Pt states no family hx of diabetes, heart disease, uterine, cervical, or colon cancer. No thyroid issues. Medical History Condition Response cancer N HIV or AIDS N arthritis N bladder / kidney infection(s) N varicosities N asthma N depression N high blood pressure N other GI illness N kidney disease N GERD / reflux N frequent headaches/migraines N psychiatric illness N liver disease N breast problem Y arrhythmia N emphysema / COPD N diabetes N osteopenia/osteoprosis N anemia or bleeding problems N heart attack N infertility N heart problems, murmurs Y defects or inherited disease N lung disease N endometriosis Y other Y hepatitis N anxiety disorder N thyroid disease or other endocrine probl ems N headaches or migraines N bleeding disorders N Gynecological History Statement/Question Response Breast Biopsy N Para 2 Last menstrual period Perform self breast exam Y Living children 2 01/09/2017 History of abnormal pap yes Ovarian Cysts Y D & C N 10/01/2017 Last bone density 2 Abortions none Contraception Hysterectomy Genital Herpes N Fibroids N Hysterectomy vaginal Gonorrhea/Chlamydia N Obstetrics History GPAL:G 2 P 2 0 0 2 Type Value Full Term 2 Living 2 Total 2 Past Encounters Encounter ID Performer Location Encounter Start Date Encounter Closed Date Diagnosis/Indication Diagnosis SNOMED-CT Code Diagnosis ICD10 Code Diagnosis Note [id number] [facility] [place] Office [address] [facility] [address] 05/11/2008 14:55:20 05/11/2008 15:23:06 [id number] [facility] [place] Office [address] [facility] [place] [address] 06/08/2008 13:32:49 06/08/2008 13:55:14 [id number] [facility] [address] [place] [address] [place] [address] 07/29/2008 15:05:43 07/29/2008 16:48:45 [id number] - Surgical Day [address] [facility] [place] [id number] 08/16/2008 08:03:59 08/23/2008 15:14:34 [id number] [facility] [address] [place] [address] [place] [address] 08/31/2008 13:15:42 08/31/2008 13:43:16 [id number] [facility] [address] [place] [address] [place] [address] 12/03/2011 14:11:35 12/06/2011 03:45:16 [id number] [facility] [address] [place] [address] [place] [address] 12/28/2011 13:24:19 12/31/2011 09:03:29 [id number] Rubens Donato MD [facility] [address] [place] [address] [place] [address] 05/30/2012 10:30:04 06/02/2012 08:42:03 [id number] Rubens Donato MD [facility] [address] [place] [address] 06/26/2012 15:57:44 06/27/2012 10:27:13 [id number] Lila Cruz MA [facility] [address] [place] [address] [place] [address] 07/18/2012 11:01:05 07/21/2012 08:45:59 [id number] Lila Cruz MA [facility] [address], [place] [address] 06/16/2014 08:26:08 06/16/2014 09:31:39 Solitary sacroiliitis 923261285 Greater tr ochanteric pain syndrome 4492715 [id number] [facility] [address] [facility], [address] [place] [address] 06/21/2014 14:00:29 06/23/2014 13:48:16 Screening for malignant neoplasm of cervix 003222251 Specialize d medical examination 96799138 Reinforced healthy diet, lifestyle, and exercise Patient reminded to report abnormal bleeding Patient counseled regarding self breast exams and breast cancer screening Patient counseled regarding osteoporos is prevention Patient counseled regarding Sexual health / STD / Any contracept rodolfo needs Abdominal pain 02384792 [id number] [facility] [address] [place] [address] 07/20/2014 15:48:31 07/20/2014 16:20:23 Solitary sacroiliitis 472055592 Greater tr ochanteric pain syndrome 0815207 Myofascial pain 451474520 sacral/ gluteal [id number] [facility] [address] [place] [address] [place] [address] 09/07/2014 14:25:20 09/07/2014 16:02:53 Solitary sacroiliitis 002075325 Myofascial pain 940409318 sacral/ gluteal/pi riformis [id number] [facility] [address] [place] [address] [place] [address] 11/02/2014 10:19:21 11/02/2014 11:03:58 Solitary sacroiliitis 172083142 Myofascial pain 257172998 sacral/ gluteal/pi riformis Arthropath y of lumbar facet joint 861416618 [id number] [facility] [address] [place] [address] [place] [address] 12/01/2014 13:00:16 12/01/2014 13:47:09 Arthropathy of lumbar facet joint 586673589 Myofascial pain 402403621 sacral/ gluteal/pi riformis Solitary sacroiliitis 336271850 Hip pain 38015407 [id number] [facility] [address], [place] [address] 02/01/2015 11:35:39 02/01/2015 12:13:30 Arthropathy of lumbar facet joint 724603294 M46.96 Myofascial pain 74191248 9 M79.1 sacral/ gluteal/pi riformis Solitary sacroiliitis 23 2582450 M46.1 Hip pain 99896303 M25.55 1 [id number] Rubens Donato MD [facility] [address] [address] 09/27/2015 14:22:24 09/29/2015 09:20:21 Screening for malignant neoplasm of cervix 867594404 Z12.4 Specialize d medical examination 50591593 Z01.419 Reinforced healthy diet, lifestyle, and exercise Patient reminded to report abnormal bleeding Patient counseled regarding self breast exams and breast cancer screening Patient counseled regarding osteoporos is prevention Patient counseled regarding Sexual health / STD / Any contracept rodolfo needs [id number] Rubens Donato MD [facility] [address] [address] 01/09/2017 11:01:20 01/09/2017 11:47:43 Screening mammography 04563420 Z12.31 Specialize d medical examination 80790402 Z01.419 Reinforced healthy diet, lifestyle, and exercise Patient reminded to report abnormal bleeding Patient counseled regarding self breast exams and breast cancer screening Patient counseled regarding osteoporos is prevention Patient counseled regarding Sexual health / STD / Any contracept rodolfo needs Dizziness [id number] R42 Cyst of ovary 86129160 N 83.209 Endometrio sis of pelvis 76148600 N80.3 Recent bleeding post ablation with worsening pelvic pain Hx of endometrio sis Discussed management options. [facility] discussed [id number] Rubens Donato MD [facility] for [address] [address] 01/24/2017 10:01:51 01/24/2017 10:46:30 Pre-surgery evaluation [id number] Z01.818 Pain bleeding and history of endometrio sis [facility] planned [id number] Rubens Donato MD [facility] [address] [place] [address] 03/12/2017 14:09:25 03/12/2017 15:12:24 Postoperative visit [id number] Z09 ? N ormal recovery. Surgery and findings explained. All questions answered [id number] Rubens Donato MD [facility] [address] [place] [address] 01/20/2018 09:27:37 01/20/2018 10:51:14 Specialized medical examination 57307930 Z01.419 Reinforced healthy diet, lifestyle, and exercise Patient reminded to report postmenopa usal bleeding Patient counseled regarding self breast exams Patient counseled regarding osteoporos is prevention Patient counseled regarding need for screening colonoscop y and recommende d pt contact PCP regarding referral for colonoscop y. 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 28040379 M48.02 mod c4-5 Myofascial pain 47961457 9 M79.10 traps [id number] Zurdo Ledesma MD [facility] [address] [place] [address] [place] [address] 10/10/2018 11:40:11 10/10/2018 12:25:34 Cervical spondylosis 135258398 M47.812 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 83754709 M48.02 mod c4-5 Myofascial pain 14806230 9 M79.10 b/l rhomboids [id number] Zurdo Ledesma MD [facility] [address] [place] [address] [place] [address] 11/20/2018 10:29:19 11/20/2018 11:04:53 Cervical spondylosis 111650813 M47.812 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 00863621 M48.02 mod c4-5 Rib pain 019159258 R07.8 1 right [id number] Zurdo Ledesma MD [facility] [address] [place] [address] [place] [address] 12/18/2018 15:29:26 12/18/2018 16:12:12 Cervical spondylosis 265290187 M47.812 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 70303022 M48.02 mod c5-6 and C4-5 [id number] Zurdo Ledesma MD [facility] [address] [place] [address] [place] [address] 02/09/2019 13:11:43 02/09/2019 13:55:05 Cervical spondylosis 363910786 M47.812 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 67020166 M48.02 mod c5-6 and C4-5 [id number] Zurdo Ledesma MD [facility] [address] [place] [address] [place] [address] 04/08/2019 08:51:54 04/08/2019 10:10:27 Cervical spondylosis 261608033 M47.812 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 42154963 M48.02 mod c5-6 and C4-5 [id number] MD [facility] [address] [place] [address] [place] [address] 06/29/2019 14:43:03 06/29/2019 15:23:12 Cervical spondylosis 487261278 M47.812 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 31000652 M48.02 mod c5-6 and C4-5 [id number] Zurdo Ledesma MD [facility] [address] [address] 08/18/2019 10:04:25 08/18/2019 12:16:53 Cervical spondylosis 725117745 M47.812 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 09534799 M48.02 mod c5-6 and C4-5 [id number] MD [facility] [address] [place] [address] [place] [address] 10/08/2019 14:00:11 10/08/2019 15:02:13 Cervical spondylosis 140318342 M47.812 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 51944064 M48.02 mod c5-6 and C4-5 Lumbar spondylosis 56614 0009 M47.896 Lumbar radiculopathy 128 072156 M54.16 right [id number] Alisa Mullins MD [facility] [address] [address] 10/10/2019 16:24:24 10/11/2019 22:53:38 Viral screening 014067356 Z11.59 [id number] MD [facility] [address] [place] [address] [place] [address] 12/21/2019 11:29:27 12/21/2019 12:17:42 Cervical spondylosis 897402358 M47.812 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 43266821 M48.02 mod c5-6 and C4-5 [id number] MD [facility] [address] [place] [address] [place] [address] 02/12/2020 10:55:08 02/12/2020 11:29:44 Cervical spondylosis 270037555 M47.812 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 10968299 M48.02 mod c5-6 and C4-5 [id number] Alisa Mullins MD [facility] [address] [address] 03/21/2020 13:40:12 03/21/2020 13:40:48 Viral screening 294153703 Z11.59 [id number] MD [facility] [address] [place] [address] [place] [address] 04/08/2020 10:49:33 04/08/2020 12:05:21 Cervical spondylosis 096733369 M47.812 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 11099025 M48.02 mod c5-6 and C4-5 Myofascial pain 09019566 9 M79.10 b/l traps [id number] MD [facility] [address] [place] [address] [place] [address] 03/20/2021 13:36:04 03/20/2021 15:10:10 Cervical spondylosis 063203899 M47.812 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 86898112 M48.02 mod c5-6 and C4-5 Myofascial pain 25779374 9 M79.10 b/l traps [id number] Zurdo Ledesma MD [facility] [address] [place] [address] [place] [address] 06/09/2021 10:05:36 06/09/2021 10:38:59 Cervical spondylosis 430913843 M47.812 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 75324241 M48.02 mod c5-6 and C4-5 Myofascial pain 65940856 9 M79.10 b/l traps [id number] Zurdo Ledesma MD [facility] [address] [place] [address] [place] [address] 09/25/2021 08:39:15 09/25/2021 09:01:23 Cervical spondylosis 030090710 M47.812 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 41360218 M48.02 mod c5-6 and C4-5 Myofascial pain 57801327 9 M79.10 b/l traps [id number] Zurdo Ledesma MD [facility] [address] [place] [address] [place] [address] 12/18/2021 10:44:37 12/18/2021 11:45:07 Cervical spondylosis 442533902 M47.812 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 58509028 M48.02 mod c5-6 and C4-5 Myofascial pain 53380440 9 M79.10 b/l traps Chronic pain 68173608 G8 9.29 [id number] Zurdo Ledesma MD [facility] [address] [place] [address] [place] [address] 05/04/2022 13:59:18 05/04/2022 15:02:38 Cervical spondylosis 162029797 M47.812 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 00189648 M48.02 mod c5-6 and C4-5 Myofascial pain 54442210 9 M79.10 b/l traps Chronic pain 34971338 G8 9.29 [id number] MD [facility] [address] [place] [address] [place] [address] 07/27/2022 10:01:07 07/27/2022 10:36:12 Cervical spondylosis 179593138 M47.812 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 35767215 M48.02 mod c5-6 and C4-5 Myofascial pain 70905159 9 M79.10 b/l traps Chronic pain 40178894 G8 9.29 [id number] MD [facility] [address], [place] [address] 10/19/2022 10:19:20 10/19/2022 11:16:23 Cervical spondylosis 674724495 M47.812 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 46265254 M48.02 mod c5-6 and C4-5 Myofascial pain 07334499 9 M79.10 b/l traps Chronic pain 50237028 G8 9.29 [id number] MD [facility] [address] [place] [address] 01/25/2023 10:09:53 01/25/2023 10:59:43 Cervical spondylosis 033809092 M47.812 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 68976523 M48.02 mod c5-6 and C4-5 Myofascial pain 48459245 9 M79.10 b/l traps Chronic pain 69340459 G8 9.29 Health Concerns Section Related Observation LastModified by Organization Detai ls LastModified Time None Recorded Concern Status LastModified by Organization Details LastModified Time None Recorded Advance Directives Directive None Recorded Payers Encounter Date Sequence Insurance Name Policy Number Policy Palenica Covered Member ID Palencia Member ID Guarantor Name 12/18/2021 1 [place] [id number] Blanka Cruz 05/04/2022 1 [place] [id number] Blanka Cruz 07/27/2022 1 [place] Blanka Cruz [id number] Blanka Cruz 10/19/2022 1 [place] [facility] Blanka Cruz [id number] Blanka Cruz 01/25/2023 1 [place] [facility] Blanka Cruz [id number] Blanka Cruz Notes Date Note Type Note Provider Name and Address Organization Details Recorded Time 12/18/2021 text/html Pain Management: Follow-upReported bypatient.Location :back of the neck radiating to the shoulder blades- same pain that is stable Quality:aching;bur cindy;cramping;dull ;shooting Severity:what number on the pain scale best describe your pain right now?: 4; what number on the pain scale best describes your least pain? : 3; what number on the pain scale best describes your worst pain?: 8; what number on the pain scale best describes your averge pain over the last month?: 5 Duration:present for >12 months Timing:constant Progression:no change Alleviating Factors:movement Aggravating Factors:non-moveme nt Associated Symptoms:no fever; no weak limbs; no tingling; no numbness of the legs/feet; no incontinence ADL (Activities of Daily Living):improve with medication Pain Relief With Current Medications:75%; no side effects from medication; tramadol and flexerilNotes:no new medical issues Zurdo Ledesma MD [address] [place] [address], [phone], [facility] 12/18/2021 11:44:10 05/04/2022 text/html Pain Management: Follow-upReported bypatient.Location :back of neck pain radiating to both shoulder blades -same chronic pain that is stable Quality:aching;bur cindy;stabbing Severity:what number on the pain scale best describe your pain right now?: 3; what number on the pain scale best describes your least pain? : 3; what number on the pain scale best describes your worst pain?: 8; what number on the pain scale best describes your averge pain over the last month?: 3 Duration:present for >12 months Timing:constant Progression:no change Alleviating Factors:medication (traMADoL, cyclobenzaprine); movement Aggravating Factors:non-moveme nt Pain Relief With Current Medications:75%; no side effects from medication; flexeril and tramadol Zurdo Ledesma MD [address] [place] [address], [phone], [facility] 05/04/2022 15:01:38 07/27/2022 text/html Pain Management: Follow-upReported bypatient.Location :neck pain radiating to shoulder -same chronic pain that is stable Quality:aching;bur cindy;dull;throbbin g Severity:what number on the pain scale best describe your pain right now?: 5; what number on the pain scale best describes your least pain? : 3; what number on the pain scale best describes your worst pain?: 8; what number on the pain scale best describes your averge pain over the last month?: 5 Duration:present for >12 months Timing:constant Progression:no change Alleviating Factors:movement Aggravating Factors:non-moveme nt ADL (Activities of Daily Living):improve with medication Pain Relief With Current Medications:75%; no side effects from medication; tramadol Zurdo Ledesma MD [address] [place] [address], [phone], [facility] 07/27/2022 10:35:03 10/19/2022 text/html Pain Management: Follow-upReported bypatient.Location :back of neck pain that radiates to b/l shoulder blades - same pain that is stable Quality:aching;bur cindy;dull Severity:what number on the pain scale best describe your pain right now?: 3; what number on the pain scale best describes your least pain? : 3; what number on the pain scale best describes your worst pain?: 8; what number on the pain scale best describes your averge pain over the last month?: 5 Duration:actual date: (10+yrs.) Timing:constant Progression:no change Alleviating Factors:movement, ice. Aggravating Factors:position (still.) ADL (Activities of Daily Living):improve with medication Pain Relief With Current Medications:75%; no side effects from medication; tramadolNotes:no new medical issues Zurdo Ledesma MD [address] [place] [address], [phone], [facility] 10/19/2022 11:14:47 01/25/2023 text/html Pain Management: Follow-upReported bypatient.Location :Central deep neck radiating to b/l shoulder blades without radiation to b/l UE Quality:aching;dul l;throbbing;shock- like Severity:what number on the pain scale best describe your pain right now?: 4; what number on the pain scale best describes your least pain? : 3; what number on the pain scale best describes your worst pain?: 8; what number on the pain scale best describes your averge pain over the last month?: 4 Duration:actual date: (10+years) Timing:constant Progression:no change Alleviating Factors:Ice, movement Aggravating Factors:No movement, rainy weather ADL (Activities of Daily Living):improve with medication; tramadol, flexeril Pain Relief With Current Medications:50%; no side effects from medicationNotes:De nies any changes to PMHx or medication since time of previous evaluation Zurdo Ledesma MD [address] [place] [address], [phone], [facility] 01/25/2023 10:59:06 OBGyn Episode No OBEpisode recorded.
--- OUTSIDE RECORDS SUMMARY | 2024-05-19 16:23 | XMS_ITS ---
Author Organization [facility] Address [address] [facility] [place] [address] Care Team Providers Care Relaster Name Role Phone Paco Amos Primary Care Provider [phone] Monica Maria [phone] REASON FOR VISIT 3 CSMP Encounters Encounter Location Date Provider Diagnosis [facility] [address] [facility] [place] [address] 08/19/2023 Monica Maria Plan Of Treatment No Information Progress Notes * MOLLY ZAMARRIPA LDOB:1964 (59 yo F)Acc No.[id number]:08/19/2023 Progress Notes Patient:?OMLLY ZAMARRIPA Provider:?Monica Maria NP :1965???Age:58 Y???Sex:Female D ate:08/19/2023 Address: [address], [place] Pcp:Paco Amos Subjective: * Chief Complaints: * ???1. 3 CSMP. * Medical History:? Objective: * Vitals:? Assessment: Plan: * Treatment: * * Electronic signature of Monica Maria NP on 05/19/2024 at 04:23 PM EST Sign off status: Pending * Provider:Tristian Maria NP Date:?08/19/2023 Generated for Adrianai jenny/Robinson/eTransmitting on:?05/19/2024 04:23 PM EST
--- OUTSIDE RECORDS SUMMARY | 2024-05-19 16:23 | XMS_ITS | Referral Summary ---
Author Organization [facility] Address [address] [place] [address] Care Team Providers Care Certified Substance Abuse Counselor Name Role Phone Paco Amos Primary Care Provider [phone] Allergies No known active allergies Medications cyclobenzaprine (FLEXERIL) 5 mg tablet Take 5 mg by mouth 3 times a day as needed for muscle spasms. Active traMADoL (ULTRAM) 50 mg tablet Take by mouth. Active Social History Tobacco Use Types Packs/Day Years Used Date Smoking Tobacco: Former Smokeless Tobacco: Never Comments Unknown Sex and Gender Information Value Date Recorded Sex Assigned at Female 09/12/2020 2:28 PM EDT Legal Sex Female 1:34 AM EDT Gender Identity Female 09/12/2020 2:28 PM EDT Sexual Orientation Straight 09/12/2020 2: 28 PM EDT Last Filed Vital Signs Vital Sign Reading Time Taken Comments Blood Pressure 112/66 09/13/2020 12:33 PM EDT Pulse 63 09/13/2020 12:33 PM EDT Temperature 36.4 ??C (97.5 ??F) 09/13/2020 12:33 PM E DT Respiratory Rate - - Oxygen Saturation - - Inhaled Oxygen Concentration - - Weight 62.1 kg (137 lb) 03/29/2010 9:15 AM EST Height 154.9 cm (5' 1 ) 03/29/2010 9:15 AM EST Body Mass Index 25.89 03/29/2010 9:15 AM EST Plan of Treatment Not on file Procedures * Due to [place] state law, this organization might not be sharing negative HIV tests. Procedure Name Priority Date/Time Associated Diagnosis Comments PAP W/HPV, CONVERSION Routine 03/11/2012 4:22 AM EST from Last 3 Months or Most Recently Relevant to Health Maintenance Results * Due to [place] state law, this organization might not be sharing negative HIV tests. * Pap w/HPV (03/11/2012 4:22 AM EST) Thin Prep W/Sales Order Processor See note [facility] Comment: Negative for Intraepithelial Neoplasia or Malignancy Adequacy: ?? Satisfactory for evaluation-endocervical/transformation zone component present Testing Location: Unless otherwise indicated, testing performed at [facility], [address] [place], [place] [id number], CLIA # [id number], Director: Titi Valdovinos M.D. Hpv Not Detected COUNTS INCLUDE 234 BEDS AT THE [facility] Comment: Assay specific for high risk types: 16,18,31,33,35,39,45,51,52,56,58,59,66,68 03/11/2012 4:22 AM EST 03/12/2012 4:22 AM EST MelvaMerlene Gray LAB HISTORICAL RESULTS Final Res ult COUNTS INCLUDE 234 BEDS AT THE [facility] from Last 3 Months or Most Recently Relevant to Health Maintenance Insurance [facility] Care Teams Certified Substance Abuse Counselor Relationship Specialty Start Date End Date Paco Amos [address] [place] [address] PCP - General Family Medicine 05/30/20
--- OUTSIDE RECORDS SUMMARY | 2024-05-19 16:23 | XMS_ITS | Clinical Summary ---
Author Organization [facility] Address [address] [place] [address] Care Team Providers Care Post Form Remover Name Role Phone Paco Amos Primary Care Provider [phone] Allergies No known active allergies Medications cyclobenzaprine [...] 03/29/2010 9:15 AM EST Plan of Treatment Health Maintenance Due Date Last Done Comments Cologuard 1965 Colon Cancer Screening 1965 Colonoscopy 1965 FOBT / Fit Test 1965 HIV Screening 1967 Sigmoidoscopy 1967 Hepatitis B Vaccines (1 of 3 - 19+ 3-dose series) 1986 DTaP,Tdap,and Td Vaccines (1 - Tdap) 1989 Mammogram 2007 Pap Smear 03/11/2015 03/11/2012, /06/2010, 04/26/2009, Additional history exists Zoster Vaccines (1 of 2) 2017 Cervical Cancer Screening 03/11/2017 HPV and Pap Smear 03/11/2017 03/11/2012, , 04/26/2009, Additional history exists Influenza Vaccine (#1) 2023 03/25/2018 Alcohol/Substance Use Screening 04/22/2024 RSV Vaccine (60+ years old and patients) (1 - 1-dose 75+ series) 2042 Pneumococcal Vaccine: Pediatric (0-5 Years) and At-Risk Patients (6-64 Years) Aged Out No longer eligible based on patient's age to complete this topic Procedures * Due to [place] Fonality law, this organization might not be sharing negative HIV tests. Procedure Name Priority Date/Time Associated Diagnosis Comments PAP W/HPV, CONVERSION Routine 03/11/2012 4:22 AM EST from Last 3 Months or Most Recently Relevant to Health Maintenance Results * Due to [place] Fonality law, this organization might not be sharing negative HIV tests. * Pap w/HPV (03/11/2012 4:22 AM EST) Thin Prep W/Exerciser Horse See note [facility] Comment: Negative for Intraepithelial Neoplasia or Malignancy Adequacy: ?? Satisfactory for evaluation-endocervical/transformation zone component present Testing Location: Unless otherwise indicated, testing performed at [facility], [address] [place] [address], [place], [facility], CLIA # [id number], Director: Titi Valdovinos M.D. Hpv Not Detected [facility] Comment: Assay specific for high risk types: 16,18,31,33,35,39,45,51,52,56,58,59,66,68 03/11/2012 4:22 AM EST 03/12/2012 4:22 AM EST us Serina Gray LAB HISTORICAL RESULTS Final Res ult [facility] from Last 3 Months or Most Recently Relevant to Health Maintenance Insurance [facility] Care Teams Post Form Remover Relationship Specialty Start Date End Date [facility] [address] [place] [address] PCP - General Family Medicine 05/30/20
--- OUTSIDE RECORDS SUMMARY | 2024-05-19 16:24 | XMS_ITS ---
Author Organization [facility] Address [address] [facility] [place] [address] Care Team Providers Care Detective Sergeant Name Role Phone Paco Amos Primary Care Provider Monica Maria [phone] REASON FOR VISIT PEA Encounters Encounter Location Date Provider Diagnosis [facility] [address] [facility] [place] [address] 10/14/2023 Monica Maria Plan Of Treatment No Information Progress Notes * MOLLY ZAMARRIPA LDOB:1964 (59 yo F)Acc No.[id number]:10/14/2023 Progress Notes Patient:?MOLLY ZAMARRIPA Provider:Tristian Maria NP :1965???Age:58 Y???Sex:Female D ate:10/14/2023 Address: [address], [place] Pcp:Paco Amos Subjective: * Chief Complaints: * ???1. PEA. * Medical History:? Objective: * Vitals:? Assessment: Plan: * Treatment: * Care Plan Details* * Electronic signature of Monica Maria NP on 05/19/2024 at 04:23 PM EST Sign off status: Pending * Provider:Tristian Maria NP Date:?10/14/2023 Generated for Denia alvarado/Robinson/eTransmitting on:?05/19/2024 04:23 PM EST
--- OUTSIDE RECORDS SUMMARY | 2024-05-19 16:24 | XMS_ITS ---
Author Organization [facility] Address [address] [facility] [place] [address] Care Team Providers Care Forestry And Wildlife Manager Name Role Phone Paco Amos Primary Care Provider REASON FOR VISIT Referral - Encounters Encounter Location Date Provider Diagnosis [facility] [address] [facility] [place] [address] 08/07/2023 Paco Mr Plan Of Treatment No Information Progress Notes * MOLLY ZAMARRIPA LDOB:1964 (58 yo F)Acc No.[id number]:08/07/2023 Patient:?MOLLY ZAMARRIPA :1965???Age:58 Y???Sex:Female Address:[address], [place], [address] * true * Date:? Generated for Denia alvarado/Robinson/eTransmitting on:?05/19/2024 04:23 PM EST
== END 2024-05-19 16:09 | disposition home or self-care (01) ==
PROVIDERS: PCP Physician Assistant; Visit Provider Internal Medicine Endocrinology, Diabetes & Metabolism
DX: M81.0 Age-related osteoporosis without current pathological fracture (principal)
CPT/HCPCS: 99204

== ENCOUNTER → 2024-05-19 15:26 | Outpatient (BNVA) | payer OTHER, SELFPAY | PROVIDERS: PCP Physician Assistant; Visit Provider Internal Medicine Endocrinology, Diabetes & Metabolism | DX: M81.0 Age-related osteoporosis without current pathological fracture (principal) | CPT/HCPCS: 99202 ==

== ENCOUNTER 2024-05-20 09:17 | Outpatient (REF) | payer OTHER, SELFPAY ==
--- NOTE | ~2024-05-20 | MM_ITS ---
EXAMINATION: MM DIAGNOSTIC DIGITAL BREAST TOMOSYNTHESIS, RIGHT CLINICAL INFORMATION: Call back from screening for right breast asymmetry. COMPARISON: Mammography: Comparison is made with available prior examinations. TECHNIQUE: Digital breast tomosynthesis is performed in both the craniocaudal and mediolateral oblique views along with computer-aided detection (CAD). Synthesized 2D images are generated from the tomosynthesis. FINDINGS: The breasts are heterogeneously dense, which may obscure small masses (ACR BI-RADS breast composition Category c). Asymmetry in the superior right breast on MLO view partially effaces on additional imaging projections. No suspicious calcifications or other abnormal findings. Targeted color Doppler ultrasound scanning in the superior and lateral right breast from 9-1 o'clock demonstrates normal fibronodular breast tissue. There is an incidental normal-appearing intramammary lymph node at 10:00 7 cm from the nipple which correlates with intramammary lymph node seen on mammography and is stable. MM/MM tomosynthesis added views R IMPRESSION: 1. Asymmetry superior right breast on MLO view which partially effaces and without sonographic correlate. Recommend six-month follow-up mammography for further evaluation of stability. 2. Normal stable intramammary lymph node. Benign. ASSESSMENT: BI-RADS BI-RADS 3 - Probably benign finding(s) - 6 month follow-up suggested RECOMMENDATION: 6 Month F/U Results were provided to the patient at time of visit by the technologist. This patient's information was entered into a reminder system with a target due date for their next mammogram. Electronically signed by: Ruby Hussein DO 05/20/2024 10:52 AM [facility]
--- OUTSIDE RECORDS SUMMARY | 2024-05-20 10:46 | XMS_ITS | Continuity of Care Document ---
Author Organization [facility] Address [address] [facility] [address] [place], [place] Phone [phone] Care Team Providers Care Paid Search Manager Name Role Phone Bette Antonio MD Care Team Information Wooden Frame Builder U navailable ADELINA MENDEZ M.D. Care Team Information Rec eiver Unavailable Bette Antonio MD Primary Care Physician Unavailab le Problems Active Problems Provider Date Disorder of adrenal gland Christina Drew Onset: 2019 Social History Type Date Description Comments Sex Unknown Allergies and adverse reactions Description No Known Drug Allergies Medications Active Medications SIG Qnty Indications Ordering Provider Date Oskrrliezjrqr0qn Tablets 1 tab by mouth @11:00pm 1tabs E27.8 Adelina Mendez M.D. 02/26/2022 Calcium 600+F556-673og-Mwwe Tablets 1 tab by mouth once a day Unknown Pltu28tn Tablets ?dose Unknown Multi Vitamin DailyTablets 1 by mouth every day Unknown Tramadol NAQ80ml Tablets Zohaib Ledesma MD History Medications Tnsbbalddynht6jp Tablets 1 tab by mouth @11:00pm 1tabs Adelina Mendez M.D. 02/03/2021 - 02/20/2021 Cvfpwq13sp Capsules 1 bid Unknown - 02/20/2021
--- OUTSIDE RECORDS SUMMARY | 2024-05-20 10:47 | XMS_ITS ---
Author Organization [facility] Address [address] [facility] [place] [address] Care Team Providers Care Agronomy Research Manager Name Role Phone Paco Amos Primary Care Provider [phone] Monica Maria [phone] REASON FOR VISIT 3 CSMP Encounters Encounter Location Date Provider Diagnosis [facility] [address] [facility] [place] [address] 08/19/2023 Monica Maria Plan Of Treatment No Information Progress Notes * MOLLY ZAMARRIPA LDOB:1964 (59 yo F)Acc No.[id number]:08/19/2023 Progress Notes Patient:?MOLLY ZAMARRIPA Provider:?Monica Maria NP :1965???Age:58 Y???Sex:Female D ate:08/19/2023 Address: [address], [id number] Pcp:Paco Amos Subjective: * Chief Complaints: * ???1. 3 CSMP. * Medical History:? Objective: * Vitals:? Assessment: Plan: * Treatment: * * Electronic signature of Monica Maria NP on 05/20/2024 at 10:46 AM EST Sign off status: Pending * Provider:Tristian Maria NP Date:?08/19/2023 Generated for Denia alvarado/Robinson/eTransmitting on:?05/20/2024 10:46 AM EST
--- OUTSIDE RECORDS SUMMARY | 2024-05-20 10:47 | XMS_ITS ---
Author Organization [facility] Address [address] [facility] [place] [address] Care Team Providers Care Hosiery Mender Name Role Phone Paco Amos Primary Care Provider Monica Maria [phone] REASON FOR VISIT PEA Encounters Encounter Location Date Provider Diagnosis [facility] [address] [place] [address] 10/14/2023 Monica Maria Plan Of Treatment No Information Progress Notes * MOLLY ZAMARRIPA LDOB:1964 (59 yo F)Acc No.[id number]:10/14/2023 Progress Notes Patient:?MOLLY ZAMARRIPA Provider:Tristian Maria NP :1965???Age:58 Y???Sex:Female D ate:10/14/2023 Address: [address], [id number] Pcp:Paco Amos Subjective: * Chief Complaints: * ???1. PEA. * Medical History:? Objective: * Vitals:? Assessment: Plan: * Treatment: * Care Plan Details* * Electronic signature of Monica Maria NP on 05/20/2024 at 10:47 AM EST Sign off status: Pending * Provider:Tristian Maria NP Date:?10/14/2023 Generated for Denia alvarado/Robinson/eTransmitting on:?05/20/2024 10:47 AM EST
--- OUTSIDE RECORDS SUMMARY | 2024-05-20 10:47 | XMS_ITS | Clinical Summary ---
Author Organization [facility] Address [address] [place] [address] Care Team Providers Care Banquet Manager Name Role Phone Paco Amos Primary Care Provider [phone] Allergies No known active allergies Medications cyclobenzaprine [...] complete this topic Procedures * Due to [place] law, this organization might not be sharing negative HIV tests. Procedure Name Priority Date/Time Associated Diagnosis Comments PAP W/HPV, CONVERSION Routine 03/11/2012 4:22 AM EST from Last 3 Months or Most Recently Relevant to Health Maintenance Results * Due to [place] law, this organization might not be sharing negative HIV tests. * Pap w/HPV (03/11/2012 4:22 AM EST) Thin Prep W/Senior Data Warehouse Developer See note [facility] Comment: Negative for Intraepithelial Neoplasia or Malignancy Adequacy: ?? Satisfactory for evaluation-endocervical/transformation zone component present Testing Location: Unless otherwise indicated, testing performed at [facility], [address] [place] [address], [place], [facility], CLIA # [id number], Director: Titi Valdovinos M.D. Hpv Not Detected [facility] Comment: Assay specific for high risk types: 16,18,31,33,35,39,45,51,52,56,58,59,66,68 03/11/2012 4:22 AM EST 03/12/2012 4:22 AM EST us Serina Gray LAB HISTORICAL RESULTS Final Res ult [facility] from Last 3 Months or Most Recently Relevant to Health Maintenance Insurance [facility] Care Teams Banquet Manager Relationship Specialty Start Date End Date [employer] [address] [place] [address] PCP - General Family Medicine 05/30/20
--- OUTSIDE RECORDS SUMMARY | 2024-05-20 10:47 | XMS_ITS ---
Author Organization [facility] Address [address] [facility] [place] [address] Care Team Providers Care Telegraphic Instrument Supervisor Name Role Phone Paco Amos Primary Care Provider [phone] REASON FOR VISIT Referral - Encounters Encounter Location Date Provider Diagnosis [facility] [address] [facility] [place] [address] 08/07/2023 Paco Mr Plan Of Treatment No Information Progress Notes * MOLLY ZAMARRIPA LDOB:1964 (58 yo F)Acc No.[id number]:08/07/2023 Patient:?MOLLY ZAMARRIPA :1965???Age:58 Y???Sex:Female Address:[address], [place], [address] * true * Date:? Generated for Denia alvarado/Robinson/eTransmitting on:?05/20/2024 10:47 AM EST
--- OUTSIDE RECORDS SUMMARY | 2024-05-20 10:47 | XMS_ITS | Referral Summary ---
Author Organization [facility] Address [address] [place] [address] Care Team Providers Care Phosphatic Fertilizer Supervisor Name Role Phone Paco Amos Primary Care Provider [phone] Allergies No known active allergies Medications cyclobenzaprine [...] Not on file Procedures * Due to [place] state law, this organization might not be sharing negative HIV tests. Procedure Name Priority Date/Time Associated Diagnosis Comments PAP W/HPV, CONVERSION Routine 03/11/2012 4:22 AM EST from Last 3 Months or Most Recently Relevant to Health Maintenance Results * Due to [place] state law, this organization might not be sharing negative HIV tests. * Pap w/HPV (03/11/2012 4:22 AM EST) Thin Prep W/Coordinator Of Library Services See note [facility] Comment: Negative for Intraepithelial Neoplasia or Malignancy Adequacy: ?? Satisfactory for evaluation-endocervical/transformation zone component present Testing Location: Unless otherwise indicated, testing performed at [facility], [address] [place], [place] [id number], CLIA # [id number], Director: Titi Valdovinos M.D. Hpv Not Detected [facility] Comment: Assay specific for high risk types: 16,18,31,33,35,39,45,51,52,56,58,59,66,68 03/11/2012 4:22 AM EST 03/12/2012 4:22 AM EST MelvaMerlene Gray LAB HISTORICAL RESULTS Final Res ult [facility] from Last 3 Months or Most Recently Relevant to Health Maintenance Insurance [facility] Care Teams Phosphatic Fertilizer Supervisor Relationship Specialty Start Date End Date Paco Amos [address] [place] [address] PCP - General Family Medicine 05/30/20
== END 2024-05-20 09:18 | disposition home or self-care (01) ==
LOC: HO.MAMMO 09:17
PROVIDERS: PCP Physician Assistant; Visit Provider Physician Assistant
DX: N64.89 Other specified disorders of breast (principal)
CPT/HCPCS: 76642; 77061; 77065

== ENCOUNTER 2024-08-06 08:25 | Outpatient (AMB) | payer OTHER, SELFPAY ==
--- NOTE | 2024-08-06 08:40 | A.OFFPC_ITS ---
Vital Signs 08/06/24 08:42 Height 5 ft 1.83 in Weight 120 lb 4 oz BMI 22.1 BP 106/62 Blood Pressure Location Rt brachial Position Sitting Respiration 12 Pulse 70 Pulse Source Pulse Oximeter Pulse Oximetry (%) 100 Oxygen Delivery Method Room Air Intake Visit Reasons: 6m fu meds Intake Note: Six month follow up Bag Maker Required: No Allergies No Known Allergies Allergy (Verified 08/06/24 08:41) Tobacco use date assessed: 08/06/24 Dental Screening Dental Screen Date: 02/05/24 HPI 6m fu meds HPI Details Patient is a 59-year-old female with a significant past medical history of chronic neck pain, chronic pain medication use, chronic low back pain presenting today for a follow up. Since I last saw her how been from pancreatic cancer.. She denies any acute concerns today. Psych: She recently moved to this area from [place] because her had [place] cancer and they were closer to the major hospitals for him. She stated since he passed in April she is now looking to move back to the [facility] to be with her grandchildren. she also rarely uses hydroxyzine for panic attacks/insomnia. She has a good support system. Musculoskeletal: On a pain current trach for tramadol that she uses a couple times a week. She has chronic neck and back pain. Endo: follows with endo in [place] for left adrenal nodule (believes benign and stable for years). Mammo: will order but states utd and due in April Colonoscopy: states she had the cologuard last year (2022) Pap: partial hysterectomy Bone density: Shows severe osteoporosis. Did follow with endocrinology but wishes to go to Dr. Mendez. [facility] Medical History (Updated 04/08/24 @ 14:26 by Ashley Narvaez PA-C) Adrenal nodule Other hyperlipidemia Anxiety Other chronic pain Surgical History History of bilateral tubal ligation Hx of hysterectomy Family History Mother COPD (chronic obstructive pulmonary disease) Mild scoliosis Father Lung cancer Social History (Updated 08/06/24 @ 08:44 by Sobia Perez CMA) Housing: House Alcohol intake: current Patient Tobacco Use Status: Former Tobacco user Cigarette Packs Per Day: 0.5 Years Smoked: 10 e-Cigarette/Vaping Use: Never Used Second Hand Smoke Exposure: No service: No Current occupational status: employed and unemployed 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 Current occupational exposures/hazards: No Cognitive needs: No Hearing needs: No Vision needs: No Questionnaire PHQ-9 Over the last 2 weeks, how often have you been bothered by any of the following problems? 1. Little interest or pleasure in doing things: not at all 2. Feeling down, depressed, or hopeless: not at all 3. Trouble falling or staying asleep, or sleeping too much: not at all 4. Feeling tired or having little energy: not at all 5. Poor appetite or overeating: not at all 6. Feeling bad about yourself - or that you are a failure or have let yourself or your family down: several days 7. Trouble concentrating on things, such as reading the newspaper or watching television: not at all 8. Moving or speaking so slowly that other people could have noticed. Or the opposite - being so fidgety or restless that you have been moving around a lot more than usual: not at all 9. Thoughts that you would be better off or of hurting yourself in some way: not at all Total score: 1 Depression Screening Interpretation: Negative Depression Screening Done: Yes 40900 - PHQ-9 Billing: Yes Source: Developed by Drs. Willie Murray, Gwendolyn Yu, Thomas Martin and colleagues, with an educational treasure from [employer]. Thrive Questionnaire Date Thrive assessed: 08/06/24 I am a: Patient What is your living situation today?: I have a steady place to live Within the past 12 months, did the food you bought not last and you didn't have the money to get more?: Never true Within the past 12 months, did you worry whether your food would run out before you got money to buy more?: Never true Do you have trouble paying for medicines?: No Do you have trouble getting transportation to medical appointments?: No Do you have trouble paying your heating and electricity bill?: No Do you have trouble taking care of your child, family member or friend?: No Do you have trouble with day-to-day activities such as bathing, preparing meals, shopping, managing finances, etc.?: No Are you currently unemployed and looking for a job?: No Are you interested in more education?: No Please select the resources that you would like help with: None Currently or been in a relationship where the following occur: No concerns reported THRIVE Score: 0 AUDIT C Alcohol Use Questionnaire (AUDIT-C) 1. How often do you have a drink containing alcohol?: 2-4 times a month 2. How many drinks containing alcohol do you have on a typical day when you are drinking?: 1 or 2 3. How often do you have six or more drinks on one occasion?: Never Total Score: 2 JOEY-7 AMB Questionnaire JOEY-7 Date JOEY - 7 assessed: 08/06/24 Feeling nervous, anxious, or on edge: 2 = More than half the days Not being able to stop or control worryin = Several days Worrying too much about different things: 1 = Several days Trouble relaxin = Not at all Being so restless that it is hard to sit still: 0 = Not at all Becoming easily annoyed or irritable: 0 = Not at all Feeling afraid as if something awful might happen: 0 = Not at all Total JOEY-7 score (0-4 normal; 5-9 mild; 10-14 moderate; 15-21 severe): 4 Source: Developed by Drs. Willie Murray, Gwendolyn Yu, Thomas Martin and colleagues, with an educational treasure from [employer]. JOEY-7 Assessment Billing JOEY-7 Assessment Tool: JOEY-7 Assessment 90435 Physical exam (Primary Care) Vital Signs: Last Vital Signs Pulse 70 08/06/24 08:42 Resp 12 08/06/24 08:42 BP 106/62 08/06/24 08:42 Pulse Ox 100 08/06/24 08:42 Oxygen Delivery Method Room Air 08/06/24 08:42 BMI result Body Mass Index 22.1 Tobacco/Smoking Status: Tobacco use Status Tobacco use date assessed 08/06/24 08/06/24 08:45 Patient Tobacco Use Status Former Tobacco user 08/06/24 08:45 e-Cigarette/Vaping Use Never Used 08/06/24 08:45 PHQ-9: PHQ-9 Score PHQ-9: Total score 1 08/06/24 08:45 Depression Screening Interpretation: Negative Thrive Assessment: Date of Thrive Assessment Date Thrive assessed 08/06/24 08/06/24 08:45 Currently or been in a relationship where the following occur: No concerns reported Const Orientation/consciousness: patient oriented x3 HENMT Ears: hearing grossly normal bilaterally Neck Thyroid: Thyroid normal Lymphatic: no lymphadenopathy noted Resp Auscultation: clear to auscultation bilaterally Cardio Rate: regular rate Rhythm: regular rhythm Heart sounds: S1 normal heart sound present and S2 normal heart sound present GI Inspection: Yes normal to inspection Palpation (GI): Soft to palpation and Other GI palpation findings present (nontender, no cva tenderness) Auscultation: normoactive bowel sounds Rectal Exam - Female: deferred Skin General skin exam: no rashes or lesions noted Neuro General: patient oriented x3, gait normal and no focal motor deficits Coding Level of Care Code Est Pt Level 4 (67800) Complex EM visit Add On G2211 Diagnoses Adrenal nodule E27.8 Osteoporosis M81.0 Lumbar spondylosis M47.816 Additional Codes JOEY-7 Assessment Billing - JOEY-7 Assessment Tool: JOEY-7 Assessment 09937 ([id number]) PHQ-9 - 96233 - PHQ-9 Billing: Yes ([id number]) Assessment & Plan Assessment & Plan (1) Adrenal nodule: Code(s): E27.8 - Other specified disorders of adrenal gland Category: Medical Plan: Following with endocrinology. Referral sent to Dr. Mendez (2) Osteoporosis: Code(s): M81.0 - Age-related osteoporosis without current pathological fracture Category: Medical Plan: As above. Advised to get labs in the urine for the workup of the secondary causes. (3) Lumbar spondylosis: Code(s): M47.816 - Spondylosis without myelopathy or radiculopathy, lumbar region Category: Medical Plan: Currently well-controlled Orders: Referrals Endocrinology Referral E27.8 - Other specified disorders of adrenal gland, M81.0 - Age-related osteoporosis without current pathological fracture
[2024-08-06 08:42] VITALS: BP 106/62; PULSE 70; RESP 12; O2SAT 100; BMI 22.1
--- OUTSIDE RECORDS SUMMARY | 2024-08-06 08:46 | XMS_ITS | Data Portability ---
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 Plan of Treatment Reminders Order Date Submit Date Provider Last Modified By Organization Details Last Modified Time Details Appointments None recorded. Lab None recorded. Referral None recorded. Procedures None recorded. Surgeries None recorded. Imaging None recorded. Medication Orders tramadol 50 mg tablet 2022 023 [facility] [address] [place], [address], 3 10:53:23 tramadol 50 mg tablet 2022 023 [facility] [address] [place], [address], 3 11:14:40 tramadol 50 mg tablet 2022 023 [facility] [address] [place], [address], 3 10:34:52 tramadol 50 mg tablet 2022 023 [facility] [address] [place], [address], 3 15:01:21 tramadol 50 mg tablet 2021 022 [facility] [address] [place], [address], 11:44:05 Patient TargetsNo targets recorded. Patient Instructions Encounter Date Encounter Id Patient Instructions Last Modified By Organization Details Last Modified Time 12/18/2021 [id number] . PHYSICAL THERAPY: pt encouraged to stay [...] pain kkalava Not available 12/18/2021 11:38:10 05/04/2022 [id number] . PHYSICAL THERAPY: pt encouraged to stay [...] pain kkalava Not available 05/04/2022 15:00:13 07/27/2022 [id number] . PHYSICAL THERAPY: pt encouraged to stay [...] pain kkalava Not available 07/27/2022 10:33:46 10/19/2022 [id number] . PHYSICAL THERAPY: pt encouraged to stay [...] pain kkalava Not available 10/19/2022 11:11:07 01/25/2023 [id number] 1. PHYSICAL THERAPY: pt encouraged to stay active. failed PT -6 weeks august and sep 2018 . continue home exercises .pt compliant w [facility]P for the last several months. 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 BEHAVIORAL THERAPY: denies depression/psych issues 3. [...] Time Dysfunctional uterine bleeding Active Not Available [facility] 3 03:06:19 Endometriosis (clinical) 614416559 Active Not Available [facility] 3 03:06:19 Abdominal pain 96008565 Active Rubens Donato MD [address] [place] [address], [address] , [facility] 5 10:15:06 Irregular periods 42080741 Active Not Available [facility] 3 03:06:19 Cyst of ovary 10785400 Active Ananya Canseco LPN [facility] 5 15:20:59 Solitary sacroiliitis 184049141 Active Zurdo Ledesma MD [address] [place] [address], [address] , [facility] 5 12:14:21 Greater trochanteric pain syndrome 6720666 Active Zurdo Ledesma MD [address] [place] [address], [address] , [facility] 5 15:56:14 Myofascial pain 515569143 Nicolas Ledesma MD [address] [place] [address], [address] , [facility] 5 16:15:57 Arthropathy of lumbar facet joint 552724797 Nicolas Ledesma MD [address] [place] [address], [address] , [facility] 5 12:14:21 Hip pain 03967642 Active Zurdo Ledesma MD [address] [place], [place] [address], [address] , [facility] 5 12:14:21 Problem Notes None recorded. Procedures Surgical History Date Name Laterality Status Provider Name and Address Organization Details Recorded Time 04/08/20 20 Trigger Point Injection completed Zurdo Ledesma MD [address] [place] [address] [place], [address], [facility] 04/08/2020 12:04:18 10/11/19 19 Trigger Point Injection completed Zurdo Ledesma MD [address] [place], [place] [address], [address], [facility] 10/10/2018 12:26:05 02/07/20 17 hysterectomy, vaginal completed Briana Basilio MA [facility] 03/12/2017 14:11:59 09/08/19 15 Trigger Point Injection completed Zurdo eLdesma MD [address] [place], [place] [address], [address], [facility] 09/07/2014 16:01:05 07/21/19 15 Trigger Point Injection completed Zurdo Ledesma MD [address] [place], [place] [address], [address], [facility] 07/20/2014 16:20:03 07/10/19 13 laparoscopy completed Hellen Vega RN [facility] 07/14/2012 11:54:12 05/30/19 13 established patient counseling (15-24 minutes) completed Rubens Donato MD [address] [place] [address] [place], [address], [facility] 05/30/2012 14:27:44 12/28/19 12 established patient counseling (15-24 minutes) completed Rubnes Donato MD [address] [place], [place] [address], [address], [facility] 12/28/2011 14:52:08 08/17/19 09 Hysteroscopy ablation completed Hellen Vega RN [facility] 06/21/2014 14:18:31 04/22/18 91 tubal ligation completed Hellen Vega RN [facility] 06/21/2014 14:18:31 Imaging Results None recorded. Procedure Notes None recorded. Medical Equipment None Reported. Allergies Allergen ID Allergen Name Allergen Category Reaction Reaction Severity Criticality Documentation Date Start Date Code Code System Note Provider Name and Address Organization Details Recorded Time 424493 Lyrica medicatio n Not available Not available Not available 10/14/2019 82361 1 RxNorm 150 mg cause s pt to feel off kilte r and dizzy Patience Bryant RN [facility], [facility] 0 11:16:42 Medications Name Sig Start Date Stop Date Status Note LastModified by Organization Details LastModified Time ibuprofen tab 800mg active Not Available Not Available No t Available hydroco/apa p tab 5-325mg active Not Available Not Available Not Available tramadol hcl tab 50mg active Not Available Not Available Not Available lupron depot inj 3.75mg active Not Available Not Available Not Available hydroco/apa p tab 5-500mg active Not Available [...] completed Not Available Not Available Not Available unbound technologies COVID-19 Vaccine (PF) 30 mcg/0.3 mL IM susp (purple) [facility]ARM[facility] active Not Available Not Available No t Available Vitals Date Recorded Body height Heart rate Systolic blood pressure Diastolic blood pressure Provider Name and Address Organization Details Last Updated DateTime 10/19/2022 157.48 cm 64 /min 112 mm[Hg] 69 mm[Hg] Heidi Pineda [facility] 10/19/2022 10:53:42 Date Recorded Body height Heart rate Systolic blood pressure Diastolic blood pressure Provider Name and Address Organization Details Last Updated DateTime 01/25/2023 157.48 cm 55 /min 122 mm[Hg] 76 mm[Hg] Margie Guerra CNA [facility] 01/25/2023 10:46:38 Date Recorded Body height Heart rate Systolic blood pressure Diastolic blood pressure Provider Name and Address Organization Details Last Updated DateTime 12/18/2021 157.48 cm 66 /min 114 mm[Hg] 68 mm[Hg] Lindsay Loo [facility] 12/18/2021 11:07:05 Date Recorded Body height Heart rate Systolic blood pressure Diastolic blood pressure Provider Name and Address Organization Details Last Updated DateTime 05/04/2022 157.48 cm 64 /min 103 mm[Hg] 66 mm[Hg] Keyla Nolasco MA [facility] 05/04/2022 14:26:36 Date Recorded Body height Heart rate Systolic blood pressure Diastolic blood pressure Provider Name and Address Organization Details Last Updated DateTime 07/27/2022 157.48 cm 71 /min 117 mm[Hg] 68 mm[Hg] Keyla Nolasco MA [facility] 07/27/2022 10:17:54 Social History Question Answer Notes LastModified by Organizat ion Details LastModified Time Tobacco Smoking Status Former [facility] 12/[facility]/2011 14:41:48 What Is Your Level Of Alcohol Consumption? Occasional Information not available 12/03/2011 Education 2 Year College [email or web address] Information not available 08/29/2018 Work Status Part-time [email or web address] Information not available 06/16/2014 Living Situation With Spouse W/ Children [email or web address] Information not available 06/16/2014 Disabled? If Yes, How Long? 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 No [email or web address] Information not available 06/16/2014 Alcohol Use Yes Occasional [email or web address] Information not available 06/16/2014 Do You Currently Or Have You Ever Used Recreational Drugs? If Yes, Specify No [email or web address] Information not available 06/16/2014 Any Addiction Or Substance/drug/ alcohol Abuse Issues? If Yes, Specify No [email or web address] Information not available 06/16/2014 Are You A Past Or Present Victim Of Abuse? No Information not available 12/03/2011 Illicit Drugs No Informatio n not available 12/03/2011 Pain Contract/Contro lled Substances No [email or web address] Information not available 06/16/2014 Marital Status Informati on not available 12/03/2011 What Was [...] arthritis N bladder / kidney infection(s) N asthma N varicosities N depression N high blood pressure N kidney disease N other GI illness N GERD / reflux N frequent headaches/migraines N psychiatric illness N liver disease N breast problem Y arrhythmia N diabetes N emphysema / COPD N osteopenia/osteoprosis N anemia or bleeding problems N heart attack N defects or inherited disease N heart problems, murmurs Y infertility N lung disease N endometriosis Y other [...] SNOMED-CT Code Diagnosis ICD10 Code Diagnosis Note [id number] [facility] [place] Office [address] [place] [address] 05/11/2008 14:55:20 05/11/2008 15:23:06 [id number] [facility] Office [address] [place] [address] 06/08/2008 13:32:49 06/08/2008 13:55:14 [id number] [facility] [address] [place] [address] [place] [address] 07/29/2008 15:05:43 07/29/2008 16:48:45 [id number] - Surgical Day [address] [facility] [place] [address] 08/16/2008 08:03:59 08/23/2008 15:14:34 [id number] [facility] [address] [place] [address] [place] [address] 08/31/2008 13:15:42 08/31/2008 13:43:16 [id number] [facility] [address] [place], [place] [address] [address] 12/03/2011 14:11:35 12/06/2011 03:45:16 [id number] [facility] [address] [place] [address] [place] [address] 12/28/2011 13:24:19 12/31/2011 09:03:29 [id number] Rubens Donato MD [facility] [place] [address] [place] [address] 05/30/2012 10:30:04 06/02/2012 08:42:03 [id number] Rubens Donato MD [facility] [address] [place] [address] [place] [address] 06/26/2012 15:57:44 06/27/2012 10:27:13 [id number] Lila Cruz MA [facility] [address] [facility], [address] [place] [address] 07/18/2012 11:01:05 07/21/2012 08:45:59 [id number] Lila Cruz MA [facility] [address] [place] [address] [place] [address] 06/16/2014 08:26:08 06/16/2014 09:31:39 Solitary sacroiliitis 383952715 Greater tr ochanteric pain syndrome 2578365 [id number] [facility] [address] [facility], [address] [place] [address] 06/21/2014 14:00:29 06/23/2014 13:48:16 Screening for malignant neoplasm of cervix 571272255 Specialize d medical examination 85242789 Reinforced healthy diet, lifestyle, and exercise Patient reminded to report abnormal bleeding Patient counseled regarding self breast exams and breast cancer screening Patient counseled regarding osteoporos is prevention Patient counseled regarding Sexual health / STD / Any contracept rodolfo needs Abdominal pain 76853515 [id number] [facility] [address] [place] [address] [place] [address] 07/20/2014 15:48:31 07/20/2014 16:20:23 Solitary sacroiliitis 576463640 Greater tr ochanteric pain syndrome 5004999 Myofascial pain 431496546 sacral/ gluteal [id number] [facility] [address] [place] [address] [place] [address] 09/07/2014 14:25:20 09/07/2014 16:02:53 Solitary sacroiliitis 071668353 Myofascial pain 951407457 sacral/ gluteal/pi riformis [id number] [facility] [address] [place] [address] [place] [address] 11/02/2014 10:19:21 11/02/2014 11:03:58 Solitary sacroiliitis 375628985 Myofascial pain 325191066 sacral/ gluteal/pi riformis Arthropath y of lumbar facet joint 429369826 [id number] [facility] [address] [place] [address] [place] [address] 12/01/2014 13:00:16 12/01/2014 13:47:09 Arthropathy of lumbar facet joint 299717977 Myofascial pain 609359190 sacral/ gluteal/pi riformis Solitary sacroiliitis 067999194 Hip pain 65945365 [id number] [facility] [address] [place] [address] [place] [address] 02/01/2015 11:35:39 02/01/2015 12:13:30 Arthropathy of lumbar facet joint 550729036 M46.96 Myofascial pain 91775359 9 M79.1 sacral/ gluteal/pi riformis Solitary sacroiliitis 23 4165963 M46.1 Hip pain 82297158 M25.55 1 [id number] Rubens Donato MD [facility] [address] [address] 09/27/2015 14:22:24 09/29/2015 09:20:21 Screening for malignant neoplasm of cervix 208858542 Z12.4 Specialize d medical examination 43448313 Z01.419 Reinforced healthy diet, lifestyle, and exercise Patient reminded to report abnormal bleeding Patient counseled regarding self breast exams and breast cancer screening Patient counseled regarding osteoporos is prevention Patient counseled regarding Sexual health / STD / Any contracept rodolfo needs [id number] Rubens Donato MD [facility] [address] [place] [address] 01/09/2017 11:01:20 01/09/2017 11:47:43 Screening mammography 36064031 Z12.31 Specialize d medical examination 20321415 Z01.419 Reinforced healthy diet, lifestyle, and exercise Patient reminded to report abnormal bleeding Patient counseled regarding self breast exams and breast cancer screening Patient counseled regarding osteoporos is prevention Patient counseled regarding Sexual health / STD / Any contracept rodolfo needs Dizziness 337298726 R42 Cyst of ovary 37156270 N 83.209 Endometrio sis of pelvis 93176869 N80.3 Recent bleeding post ablation with worsening pelvic pain Hx of endometrio sis Discussed management options. [facility] discussed [id number] Rubens Donato MD [facility] [address] [place] [address] 01/24/2017 10:01:51 01/24/2017 10:46:30 Pre-surgery evaluation 751528044 Z01.818 Pain bleeding and [facility] of [facility]rio [facility] [id number] Rubens Donato MD [facility] [address] [place] [address], [address] [address] 03/12/2017 14:09:25 03/12/2017 15:12:24 Postoperative visit 143945297 Z09 ? N ormal recovery. Surgery and findings explained. All questions answered [id number] Rubens Donato MD [facility] [address] [place] [address], [address] [address] 01/20/2018 09:27:37 01/20/2018 10:51:14 Specialized medical examination 25123426 Z01.419 Reinforced healthy diet, lifestyle, and exercise Patient reminded to report postmenopa usal bleeding Patient counseled regarding self breast exams Patient counseled regarding osteoporos is prevention Patient counseled regarding need for screening colonoscop y and recommende d pt contact PCP regarding referral for colonoscop y. Patient counseled regarding Sexual health Screening mammography 24 188547 Z12.31 [id number] Zurdo Ledesma MD [facility] [address] [place] [address] [place] [address] 08/29/2018 14:30:17 08/29/2018 15:57:11 Cervical spondylosis 914067351 M47.812 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 75285649 M48.02 mod c4-5 Myofascial pain 76555101 9 M79.10 traps [id number] MD [facility] [address] [place] [address] [place] [address] 10/10/2018 11:40:11 10/10/2018 12:25:34 Cervical spondylosis 641721752 M47.812 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 19447776 M48.02 mod c4-5 Myofascial pain 11249898 9 M79.10 b/l rhomboids [id number] Zurdo Ledesma MD [facility] [address] [place] [address] [place] [address] 11/20/2018 10:29:19 11/20/2018 11:04:53 Cervical spondylosis 535290475 M47.812 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 86241621 M48.02 mod c4-5 Rib pain 444275330 R07.8 1 right [id number] MD [facility] [address] [place] [address] [place] [address] 12/18/2018 15:29:26 12/18/2018 16:12:12 Cervical spondylosis 824962635 M47.812 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 31606197 M48.02 mod c5-6 and C4-5 [id number] MD Jim[facility] [address] [place] [address] [place] [address] 02/09/2019 13:11:43 02/09/2019 13:55:05 Cervical spondylosis 657734450 M47.812 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 46711382 M48.02 mod c5-6 and C4-5 [id number] MD Colin [facility] [address] [place] [address] [place] [address] 04/08/2019 08:51:54 04/08/2019 10:10:27 Cervical spondylosis 922128347 M47.812 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 96854363 M48.02 mod c5-6 and C4-5 [id number] MD Jim[facility] [address] [place] [address] [place] [address] 06/29/2019 14:43:03 06/29/2019 15:23:12 Cervical spondylosis 826971319 M47.812 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 78967001 M48.02 mod c5-6 and C4-5 [id number] MD Colin [facility] [address] [place] [address] 08/18/2019 10:04:25 08/18/2019 12:16:53 Cervical spondylosis 815190770 M47.812 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 16544991 M48.02 mod c5-6 and C4-5 [id number] MD Jim[facility] [address] [place] [address] [place] [address] 10/08/2019 14:00:11 10/08/2019 15:02:13 Cervical spondylosis 762119740 M47.812 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 10179126 M48.02 mod c5-6 and C4-5 Lumbar spondylosis 31909 0009 M47.896 Lumbar radiculopathy 128 483500 M54.16 right [id number] Alisa Mullins MD [facility] [address] [address] 10/10/2019 16:24:24 10/11/2019 22:53:38 Viral screening 682289980 Z11.59 [id number] MD Anshul [facility] [address] [place] [address] [place] [address] 12/21/2019 11:29:27 12/21/2019 12:17:42 Cervical spondylosis 934470362 M47.812 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 83254383 M48.02 mod c5-6 and C4-5 [id number] MD Anshul [facility] [address] [place] [address] [place] [address] 02/12/2020 10:55:08 02/12/2020 11:29:44 Cervical spondylosis 613760364 M47.812 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 68005483 M48.02 mod c5-6 and C4-5 [id number] [facility] [address] [address] 03/21/2020 13:40:12 03/21/2020 13:40:48 Viral screening 225046498 Z11.59 [id number] MD Anshul [facility] [address] [place] [address] [place] [address] 04/08/2020 10:49:33 04/08/2020 12:05:21 Cervical spondylosis 275427055 M47.812 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 11181233 M48.02 mod c5-6 and C4-5 Myofascial pain 89203322 9 M79.10 b/l traps [id number] MD Anshul [facility] [address] [place] [address] [place] [address] 03/20/2021 13:36:04 03/20/2021 15:10:10 Cervical spondylosis 247412730 M47.812 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 08604020 M48.02 mod c5-6 and C4-5 Myofascial pain 10877613 9 M79.10 b/l traps [id number] Zurdo Ledesma MD [facility] [address] [place] [address] [place] [address] 06/09/2021 10:05:36 06/09/2021 10:38:59 Cervical spondylosis 690239901 M47.812 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 56652766 M48.02 mod c5-6 and C4-5 Myofascial pain 92332530 9 M79.10 b/l traps [id number] Zurdo Ledesma MD [facility] [address] [place] [address] [place] [address] 09/25/2021 08:39:15 09/25/2021 09:01:23 Cervical spondylosis 178917252 M47.812 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 28764008 M48.02 mod c5-6 and C4-5 Myofascial pain 18771129 9 M79.10 b/l traps [id number] Zurdo Ledesma MD [facility] [address] [place] [address] [place] [address] 12/18/2021 10:44:37 12/18/2021 11:45:07 Cervical spondylosis 757362420 M47.812 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 34210789 M48.02 mod c5-6 and C4-5 Myofascial pain 84612003 9 M79.10 b/l traps Chronic pain 99902424 G8 9.29 [id number] MD [facility] [address] [place] [address] [place] [address] 05/04/2022 13:59:18 05/04/2022 15:02:38 Cervical spondylosis 880548955 M47.812 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 03412201 M48.02 mod c5-6 and C4-5 Myofascial pain 29831910 9 M79.10 b/l traps Chronic pain 83481734 G8 9.29 [id number] Zurdo Ledesma MD [facility] [address] [place] [address] [place] [address] 07/27/2022 10:01:07 07/27/2022 10:36:12 Cervical spondylosis 849818411 M47.812 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 53249246 M48.02 mod c5-6 and C4-5 Myofascial pain 19216463 9 M79.10 b/l traps Chronic pain 15055358 G8 9.29 [id number] MD [facility] [address] [place] [address] [place] [address] 10/19/2022 10:19:20 10/19/2022 11:16:23 Cervical spondylosis 031336123 M47.812 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 55248668 M48.02 mod c5-6 and C4-5 Myofascial pain 75086064 9 M79.10 b/l traps Chronic pain 80273743 G8 9.29 [id number] MD [facility] [address] [place] [address] [place] [address] 01/25/2023 10:09:53 01/25/2023 10:59:43 Cervical spondylosis 459970081 M47.812 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 18612756 M48.02 mod c5-6 and C4-5 Myofascial pain 71409279 9 M79.10 b/l traps Chronic pain 90071907 G8 9.29 Health Concerns Section Related Observation LastModified by Organization Detai ls LastModified Time None Recorded Concern Status LastModified by Organization Details LastModified Time None Recorded Advance Directives Directive None Recorded Payers Encounter Date Sequence Insurance Name Policy Number Policy Palencai Covered Member ID Palencia Member ID Guarantor Name 12/18/2021 1 [place] [facility] Blanka Cruz [id number] Blanka Cruz 05/04/2022 1 [place] [facility] Blanka Cruz [id number] Blanka Cruz 07/27/2022 1 [place] [facility] Blanka Cruz [id number] Blanka Cruz 10/19/2022 1 [place] [facility] Blanka Cruz [id number] Blanka Cruz 01/25/2023 1 [place] [facility] Blanka Cruz [id number] Blanka Cruz Notes Date Note Type Note [...] flexerilNotes:no new medical issues Zurdo Ledesma MD [address] [place] [address], [address], [facility] 12/18/2021 11:44:10 05/04/2022 text/html Pain Management: Follow-upReported [...] medication; flexeril and tramadol Zurdo Ledesma MD [address] [place] [address], [address], [facility] 05/04/2022 15:01:38 07/27/2022 text/html Pain Management: Follow-upReported [...] effects from medication; tramadol Zurdo Ledesma MD [address] [place] [address], [address], [facility] 07/27/2022 10:35:03 10/19/2022 text/html Pain Management: Follow-upReported [...] tramadolNotes:no new medical issues Zurdo Ledesma MD [address] [place] [address], [address], [facility] 10/19/2022 11:14:47 01/25/2023 text/html Pain Management: Follow-upReported [...] time of previous evaluation Zurdo Ledesma MD [address] [facility], [place], [address], [facility] 01/25/2023 10:59:06 OBGyn Episode No OBEpisode recorded.
--- OUTSIDE RECORDS SUMMARY | 2024-08-06 08:46 | XMS_ITS | Continuity of Care Document ---
Author Organization [facility] Address [address] 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 Care Team Information Rec eiver Unavailable Bette Antonio MD Primary Care Physician Unavailab le Problems Active Problems Provider Date Disorder of adrenal gland Christina Drew Onset: 2019 Social History Type Date Description Comments Sex Unknown Allergies and adverse reactions Description No Known Drug Allergies Medications Active Medications SIG Qnty Indications Ordering Provider Date Kwdfiglefztsq9de Tablets 1 tab by mouth @11:00pm 1tabs E27.8 Adelina Menedz M.D. 02/26/2022 Calcium 600+R074-743du-Eeow Tablets 1 tab by mouth once a day Unknown Cnaj12nk Tablets ?dose Unknown Multi Vitamin DailyTablets 1 by mouth every day Unknown Tramadol GOX45sz Tablets Zohaib Ledesma MD History Medications Dxfccodyzaxpp2cb Tablets 1 tab by mouth @11:00pm 1tabs Adelina Mendez M.D. 02/03/2021 - 02/20/2021 Tsgink72gf Capsules 1 bid Unknown - 02/20/2021
--- OUTSIDE RECORDS SUMMARY | 2024-08-06 08:47 | XMS_ITS | Clinical Summary ---
Author Organization [facility] Address [address] [place] [address] Care Team Providers Care Caustic Operator Name Role Phone Unavailable Primary Care Provider Unavailabl e Allergies No known active allergies Medications cyclobenzaprine [...] DTaP,Tdap,and Td Vaccines (1 - Tdap) 1989 Pap Smear 03/11/2015 03/11/2012, 05/24, 04/26/2009, Additional history exists Pneumococcal Vaccine: 50+ Ye ars (1 of 1 - PCV) 2017 Zoster Vaccines (1 of 2) 2017 Cervical Cancer Screening 03/11/2017 HPV and Pap Smear 03/11/2017 03/11/2012, , 04/26/2009, Additional history exists Alcohol/Substance Use Screening 04/22/2024 Influenza Vaccine (Season Ended) 2024 03/25/20 18 RSV Vaccine (60+ years old a nd patients) (1 - 1-dose 75+ series) 2042 Procedures * Due to [place] Record[place] law, this organization might not be sharing negative HIV tests. Procedure Name Priority Date/Time Associated Diagnosis Comments PAP W/HPV, CONVERSION Routine 03/11/2012 4:22 AM EST from Last 3 Months or Most Recently Relevant to Health Maintenance Results * Due to [place] Record[place] law, this organization might not be sharing negative HIV tests. * Pap w/HPV (03/11/2012 4:22 AM EST) Thin Prep W/Education Reviewer See note [facility] Comment: Negative for Intraepithelial Neoplasia or Malignancy Adequacy: ?? Satisfactory for evaluation-endocervical/transformation zone component present Testing Location: Unless otherwise indicated, [facility] performed [facility] [place] [address], [place] # [id number], Director: Titi Valdovinos M.D. Hpv Not Detected [facility] Comment: Assay specific for high risk types: 16,18,31,33,35,39,45,51,52,56,58,59,66,68 03/11/2012 4:22 AM EST 03/12/2012 4:22 AM EST us Serina Gray LAB HISTORICAL RESULTS Final Res ult [facility] from Last 3 Months or Most Recently Relevant to Health Maintenance Insurance [facility]
--- OUTSIDE RECORDS SUMMARY | 2024-08-06 08:47 | XMS_ITS | Referral Summary ---
Author Organization [facility] Address [address] [place] [address] Care Team Providers Care Radiology Rn Name Role Phone Unavailable Primary Care Provider [...] 2:28 PM EDT Sexual Orientation Straight 09/12/2020 2 :28 PM EDT Last Filed Vital Signs Vital [...] Not on file Procedures * Due to [place] state law, this organization might not be sharing negative HIV tests. Procedure Name Priority Date/Time Associated Diagnosis Comments PAP W/HPV, CONVERSION Routine 03/11/2012 4:22 AM EST from Last 3 Months or Most Recently Relevant to Health Maintenance Results * Due to [place] state law, this organization might not be sharing negative HIV tests. * Pap w/HPV (03/11/2012 4:22 AM EST) Thin Prep W/Telegraph Lineman See note [facility] Comment: Negative for Intraepithelial Neoplasia or Malignancy Adequacy: ?? Satisfactory for evaluation-endocervical/transformation zone component present Testing Location: Unless otherwise indicated, testing performed at [facility], [address] [place] [address], [place] [address], CLIA # [id number], Director: Titi Valdovinos M.D. Hpv Not Detected [facility] Comment: Assay specific for high risk types: 16,18,31,33,35,39,45,51,52,56,58,59,66,68 03/11/2012 4:22 AM EST 03/12/2012 4:22 AM EST Serina Gray LAB HISTORICAL RESULTS Final Res ult [facility] from Last 3 Months or Most Recently Relevant to Health Maintenance Insurance [facility]
== END 2024-08-06 09:07 | disposition home or self-care (01) ==
LOC: HO.HMCFM 08:25
PROVIDERS: PCP Physician Assistant; Visit Provider Physician Assistant
DX: E27.8 Other specified disorders of adrenal gland (principal); M81.0 Age-related osteoporosis without current pathological fracture; M47.816 Spondylosis without myelopathy or radiculopathy, lumbar region

== ENCOUNTER → 2024-08-06 08:25 | Outpatient (BNVA) | payer OTHER, SELFPAY | PROVIDERS: PCP Family Medicine; Visit Provider Physician Assistant | DX: E27.8 Other specified disorders of adrenal gland (principal); M81.0 Age-related osteoporosis without current pathological fracture; M47.816 Spondylosis without myelopathy or radiculopathy, lumbar region | CPT/HCPCS: 96127; 99212 ==

== ENCOUNTER 2024-08-06 09:11 | Outpatient (REF) | payer OTHER, SELFPAY ==
--- OUTSIDE RECORDS SUMMARY | 2024-08-06 10:13 | XMS_ITS | Referral Summary ---
Author Organization [facility] Address [address] [place] [address] Care Team Providers Care Groover And Turner Name Role Phone Unavailable Primary Care Provider [...] Not on file Procedures * Due to [place] state law, this organization might not be sharing negative HIV tests. Procedure Name Priority Date/Time Associated Diagnosis Comments PAP W/HPV, CONVERSION Routine 03/11/2012 4:22 AM EST from Last 3 Months or Most Recently Relevant to Health Maintenance Results * Due to [place] state law, this organization might not be sharing negative HIV tests. * Pap w/HPV (03/11/2012 4:22 AM EST) Thin Prep W/Chief Science Officer See note [facility] Comment: Negative for Intraepithelial Neoplasia or Malignancy Adequacy: ?? Satisfactory for evaluation-endocervical/transformation zone component present Testing Location: Unless otherwise indicated, testing performed at [facility], [address] [place] [address], [place] [address], CLIA # [id number], Director: Titi Valdovinos M.D. Hpv Not Detected [facility] Comment: Assay specific for high risk types: 16,18,31,33,35,39,45,51,52,56,58,59,66,68 03/11/2012 4:22 AM EST 03/12/2012 4:22 AM EST Serina Gray LAB HISTORICAL RESULTS Final Res ult [facility] from Last 3 Months or Most Recently Relevant to Health Maintenance Insurance [facility]
--- OUTSIDE RECORDS SUMMARY | 2024-08-06 10:13 | XMS_ITS | Clinical Summary ---
Author Organization [facility] Address [address] [place] [address] Care Team Providers Care Water Aerobics Instructor Name Role Phone Unavailable Primary Care Provider [...] 75+ series) 2042 Procedures * Due to [place] law, this organization might not be sharing negative HIV tests. Procedure Name Priority Date/Time Associated Diagnosis Comments PAP W/HPV, CONVERSION Routine 03/11/2012 4:22 AM EST from Last 3 Months or Most Recently Relevant to Health Maintenance Results * Due to [place] Doct[place] law, this organization might not be sharing negative HIV tests. * Pap w/HPV (03/11/2012 4:22 AM EST) Thin Prep W/Shipping Support See note [facility] Comment: Negative for Intraepithelial Neoplasia or Malignancy Adequacy: ?? Satisfactory for evaluation-endocervical/transformation zone component present Testing Location: Unless otherwise indicated, testing performed at [facility] [place] [address], [place] # [id number], Director: Titi Valdovinos M.D. Hpv Not Detected [facility] Comment: Assay specific for high risk types: 16,18,31,33,35,39,45,51,52,56,58,59,66,68 03/11/2012 4:22 AM EST 03/12/2012 4:22 AM EST us Serina Gray LAB HISTORICAL RESULTS Final Res ult [facility] from Last 3 Months or Most Recently Relevant to Health Maintenance Insurance [facility]
--- OUTSIDE RECORDS SUMMARY | 2024-08-06 10:13 | XMS_ITS | Continuity of Care Document ---
Author Organization [facility] Address [address] [facility] [address] [place], [place] Phone [phone] Care Team Providers Care Baker Doughnut Name Role Phone Bette Antonio MD Care Team Information Machine Tester U navailable ADELINA MENDEZ M.D. Care Team Information Rec eiver Unavailable Bette Antonio MD Primary Care Physician Unavailab le Problems Active Problems Provider Date Disorder of adrenal gland Christina Drew Onset: 2019 Social History Type Date Description Comments Sex Unknown Allergies and adverse reactions Description No Known Drug Allergies Medications Active Medications SIG Qnty Indications Ordering Provider Date Bqajdesetxvnw8wl Tablets 1 tab by mouth @11:00pm 1tabs E27.8 Adelina Mendez M.D. 02/26/2022 Calcium 600+Q626-790ma-Riev Tablets 1 tab by mouth once a day Unknown Hoqq59tn Tablets ?dose Unknown Multi Vitamin DailyTablets 1 by mouth every day Unknown Tramadol RIU88tu Tablets Zohaib Ledesma MD History Medications Phaxhcaasyfoy9vz Tablets 1 tab by mouth @11:00pm 1tabs Adelina Mendez M.D. 02/03/2021 - 02/20/2021 Xoutxn47vj Capsules 1 bid Unknown - 02/20/2021
[2024-08-06 11:27] LABS: MANUAL DIFF FLAG NO
[2024-08-06 11:35] LABS: Basophils Absolute Auto 0.1 X10*3/uL (0.0-0.2); Basophils Percent Auto 2.2 % (0-2); Eosinophils Absolute Auto 0.2 X10*3/uL (0.0-0.4); Hemoglobin 10.7 g/dl (12.0-16.0); Imm Gran Abs Auto 0.01 X10*3/uL (0.00-0.03); Imm Gran Pct Auto 0.2 % (0.0-0.4); Lymphocytes Absolute Auto 1.6 X10*3/uL (1.2-4.9); Lymphocytes Percent Auto 39.2 % (20-40); Mean Corpuscular HGB Conc 31.5 g/dl (31.0-35.0); Mean Corpuscular Hemoglobin 26.8 pg (27.0-33.0); Monocytes Absolute Auto 0.4 X10*3/uL (0.1-1.2); Monocytes Percent Auto 8.7 % (2-11); Neutrophils Absolute Auto 1.8 x10*3/uL (2.0-8.3); Neutrophils Percent Auto 45.7 % (45-73); Platelet Count 376 X10*3/uL (160-400); Red Cell Distribution Width 13.4 % (11.0-16.0)
[2024-08-06 11:55] LABS: Cholesterol 251 mg/dL (<200); HDL Cholesterol 59 mg/dL (>40); Iron 28 mcg/dL (30-160); LDL Cholesterol Calculated 174 mg/dL (<100); Percent Iron Saturation 9 % (15-50); Phosphorus 3.6 mg/dL (2.7-4.5); Total Iron Binding Capacity 328 mcg/dL (228-428); Triglycerides 92 mg/dL (<150); Unsaturated Iron Binding 300 ug/dL
[2024-08-06 12:11] LABS: Ferritin 6 ng/mL (10-250)
[2024-08-06 12:14] LABS: Folate 8.9 ng/mL (> or = 4.0); Vitamin B12 540 pg/mL (200-900)
[2024-08-06 12:33] LABS: Vitamin D 25-OH Total 37.6 ng/mL (>30)
[2024-08-10 20:18] LABS: Prot Elec - Albumin 4.5 g/dL (3.8-4.8); Prot Elec - Alpha1 0.2 g/dL (0.2-0.3); Prot Elec - Alpha2 0.7 g/dL (0.5-0.9); Prot Elec - Beta 1 0.5 g/dL (0.4-0.6); Prot Elec - Beta 2 0.4 g/dL (0.2-0.5); Prot Elec - Gamma 0.9 g/dL (0.8-1.7); Prot Elec - Total Protein 7.2 g/dL (6.1-8.1)
== END 2024-08-06 09:12 | disposition home or self-care (01) ==
LOC: HO.WFDLDS 09:11
PROVIDERS: Referring Provider Internal Medicine Endocrinology, Diabetes & Metabolism; Visit Provider Physician Assistant
DX: Z13.89 Encounter for screening for other disorder (principal)
CPT/HCPCS: 36415; 80061; 82306; 82607; 82728; 82746; 83540; 84100; 84165; 85025; 86335

== ENCOUNTER 2024-11-19 12:56 | Outpatient (REF) | payer OTHER, SELFPAY ==
--- NOTE | ~2024-11-19 | MM_ITS ---
EXAMINATION: MM DIAGNOSTIC DIGITAL BREAST TOMOSYNTHESIS, RIGHT CLINICAL INFORMATION: 6 month follow-up for asymmetry in the right breast superior on MLO view without prior sonographic correlate. COMPARISON: Mammography: [facility] on PACS. TECHNIQUE: Digital breast tomosynthesis is performed in both the craniocaudal and mediolateral oblique views along with computer-aided detection (CAD). Synthesized 2D images are generated from the tomosynthesis. FINDINGS: The breasts are heterogeneously dense, which may obscure small masses (ACR BI-RADS breast composition Category c). Asymmetry in the superior right breast on MLO view without prior sonographic correlate does not persist on today's imaging projections and likely represented overlapping breast tissue. There are grouped amorphous calcifications in the upper inner right breast posterior depth. No suspicious other abnormal findings. MM/MM tomosynthesis diagnostic RT IMPRESSION: Grouped amorphous calcifications in the upper inner right breast posterior depth. Recommend stereotactic core needle biopsy at this time for confirmation. The findings and recommendations were discussed with the patient the procedure will be scheduled. ASSESSMENT: BI-RADS BI-RADS 4 - Suspicious finding RECOMMENDATION: Biopsy recommended Results were discussed with the patient at time of visit. This patient's information was entered into a reminder system with a target due date for their next mammogram. Electronically signed by: Ruby Hussein DO 11/19/2024 02:22 PM EDT
--- OUTSIDE RECORDS SUMMARY | 2024-11-19 13:04 | XMS_ITS | Clinical Summary ---
Author Organization [facility] Address [address] [place] [address] Care Team Providers Care Professor Of History Name Role Phone Unavailable Primary Care Provider [...] 65 09/13/2020 12:33 PM EDT Temperature 36.4 C (97.5 F) 09/13/2020 12:33 PM EDT Respiratory Rate - - Oxygen Saturation - [...] 03/11/2015 03/11/2012, 05/24, 04/26/2009, Additional history exists CT Lung Cancer Screening (Baseline) 2017 Pneumococcal Vaccine: 50+ Ye ars (1 of 1 - PCV) 2017 Zoster Vaccines (1 of 2) 2017 Cervical Cancer Screening 03/11/2017 HPV and Pap Smear 03/11/2017 03/11/2012, , 04/26/2009, Additional history exists Alcohol/Substance Use Screening 04/22/2024 Influenza Vaccine (#1) 2024 03/25/2018 RSV Vaccine (60+ years old a nd patients) (1 - 1-dose 75+ series) 2042 Procedures * Due to [place] law, this organization might not be sharing negative HIV tests. Procedure Name Priority Date/Time Associated Diagnosis Comments PAP W/HPV, CONVERSION Routine 03/11/2012 4:22 AM EST from Last 3 Months or Most Recently Relevant to Health Maintenance Results * Due to [place] law, this organization might not be sharing negative HIV tests. * Pap w/HPV (03/11/2012 4:22 AM EST) Thin Prep W/Cattery Operator See note [facility] Comment: Negative for Intraepithelial Neoplasia or Malignancy Adequacy: Satisfactory for evaluation-endocervical/transformation zone component present Testing Location: Unless otherwise indicated, testing performed at [facility], [address] [place] [address], CLIA # [id number], Director: Titi Valdovinos M.D. Hpv Not Detected [facility] Comment: Assay specific for high risk types: 16,18,31,33,35,39,45,51,52,56,58,59,66,68 03/11/2012 4:22 AM EST 03/12/2012 4:22 AM EST us Serina Gray LAB HISTORICAL RESULTS Final Res ult [facility] from Last 3 Months or Most Recently Relevant to Health Maintenance Insurance [facility]
--- OUTSIDE RECORDS SUMMARY | 2024-11-19 13:04 | XMS_ITS | Encounter Summary ---
Author Organization [facility] Address [address] [facility] [address] [place] [address] Phone Care Team Providers Care Auto Body Service Mechanic Name Role Phone Paco Amos MD Primary Care Provider [phone] Encounter Details Date Type Department Care Team (Late Contact Info) Description 10/15/2022 Procedure Pass [facility], [facility] [address] [place] [address] Social History Tobacco Use Types Packs/Day Years Used Date Smoking Tobacco: Never Assessed Education Answer Date Recorded Are you interested in more education? Not on eusebio e 09/28/2022 Are you concerned about learning? Not on file 09/28/2022 No 09/28/2022 No 09/28/2022 Digital Access Answer Date Recorded No 09/28/2022 No 09/28/2022 Reliable internet access at home? Not on file 09/28/2022 Device with a working camera? Not on file Comments Unknown Sex and Gender Information Value Date Recorded Sex Assigned at Not on file Legal Sex Female 12:52 PM EDT Gender Identity Not on file Sexual Orientation Not on file documented as of this encounter Plan of Treatment Upcoming Encounters Date Type Department Care Team (Late st Contact Info) Description 01/07/2025 1:00 PM EDT Office Visit [facility] [address] [place] [id number] Hilayr Farah MD [address] [place] [phone] [email or web address] documented as of this encounter Visit Diagnoses Not on filedocumented in this encounter Care Teams Auto Body Service Mechanic Relationship Specialty Start Date End Date Paco Amos MD [address] [place] [phone] PCP - General Family Medicine 10/10/22 documented as of this encounter Additional Source Comments The information contained in this document represents components of the legal health record. It is not the complete legal health record.[facility]
--- OUTSIDE RECORDS SUMMARY | 2024-11-19 13:04 | XMS_ITS | Continuity of Care Document ---
Author Organization [facility] Address [address] [facility] [address] [place], [place] Phone [phone] Care Team Providers Care Information Security Risk Analyst Name Role Phone Bette Antonio MD Care Team Information Head Teacher U navailable ADELINA MENDEZ M.D. 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 02/26/2022 Calcium 600+Z069-224we-Mdtk Tablets 1 tab by mouth once a day Unknown Hwjy64gb Tablets ?dose Unknown Multi Vitamin DailyTablets 1 by mouth every day Unknown Tramadol VVP45pn Tablets Zohaib Ledesma MD History Medications Vttiwfnwnmqmi7hx Tablets 1 tab by mouth @11:00pm 1tabs Adelina Mendez M.D. 02/03/2021 - 02/20/2021 Cgekrp23dq Capsules 1 bid Unknown - 02/20/2021
== END 2024-11-19 12:57 | disposition home or self-care (01) ==
LOC: HO.MAMMO 12:56
PROVIDERS: PCP Physician Assistant; Visit Provider Physician Assistant
DX: N64.89 Other specified disorders of breast (principal)
CPT/HCPCS: 77061; 77065

== ENCOUNTER → 2024-11-19 13:00 | Outpatient (BNV) | payer OTHER, SELFPAY | PROVIDERS: PCP Physician Assistant; Visit Provider Internal Medicine | DX: R92.0 Mammographic microcalcification found on diagnostic imaging of breast (principal) | CPT/HCPCS: 77061; 77065 ==

== ENCOUNTER 2024-11-23 08:20 | Outpatient (AMB) | payer OTHER, SELFPAY ==
--- OUTSIDE RECORDS SUMMARY | 2024-11-23 08:34 | XMS_ITS ---
Continuity of Care Document (CCD) Created on: November 23, 2024 Blanka Cruz External Reference #: [id number] : [id number] Sex: Female Author Organization [facility] Address [address] [facility] [address] [place], [place] Phone [phone] Care Team Providers Care Industrial Engineering Technician Name Role Phone Bette Antonio MD Care Team Information Small Parts Assembler U navailable ADELINA MENDEZ M.D. Care Team Information Rec eiver Unavailable Bette Antonio MD Primary Care Physician Unavailab le Problems Active Problems Provider Date Disorder of adrenal gland Christina Drew Onset: 2019 Social History Type Date Description Comments Sex Female Sex Unknown Allergies and adverse reactions Description No Known Drug Allergies Medications Active Medications SIG Qnty Indications Ordering Provider Date Tnrvtkpcbulez5rn Tablets 1 tab by mouth @11:00pm 1tabs E27.8 Adelina Mendez M.D. 02/26/2022 Calcium 600+P092-344ew-Xyoc Tablets 1 tab by mouth once a day Unknown Tcoq83zv Tablets ?dose Unknown Multi Vitamin DailyTablets 1 by mouth every day Unknown Tramadol PIO55oo Tablets Zohaib Ledesma MD History Medications Nwvtlvvklbnha2lb Tablets 1 tab by mouth @11:00pm 1tabs Adelina Mendez M.D. 02/03/2021 - 02/20/2021 Owwsrm12kw Capsules 1 bid Unknown - 02/20/2021
--- OUTSIDE RECORDS SUMMARY | 2024-11-23 08:34 | XMS_ITS | Encounter Summary ---
Author Organization [facility] Address [address] [facility] [address] [place] [address] Phone Care Team Providers Care Sap Portal Developer Name Role Phone Paco Amos MD Primary Care Provider [phone] Encounter Details Date Type Department Care Team (Late Contact Info) Description 10/15/2022 Procedure Pass [facility], [facility] [address] [place] [address] Social History Tobacco Use Types Packs/Day Years [...] 1:00 PM EDT Office Visit [facility] [address] [place] [id number] Hilary Farah MD [address] [place] [phone] [email or web address] documented as of this encounter Visit Diagnoses Not on filedocumented in this encounter Care Teams Sap Portal Developer Relationship Specialty Start Date End Date Paco Amos MD [address] [place] [phone] PCP - General Family Medicine 10/10/22 documented as of this encounter Additional Source Comments The information contained in this document represents components of the legal health record. It is not the complete legal health record.[facility]
--- OUTSIDE RECORDS SUMMARY | 2024-11-23 08:34 | XMS_ITS | Clinical Summary ---
Author Organization [facility] Address [address] [place] [address] Care Team Providers Care Color Maker Formulator Name Role Phone Unavailable Primary Care Provider [...] 75+ series) 2042 Procedures * Due to [place] law, this organization might not be sharing negative HIV tests. Procedure Name Priority Date/Time Associated Diagnosis Comments PAP W/HPV, CONVERSION Routine 03/11/2012 4:22 AM EST from Last 3 Months or Most Recently Relevant to Health Maintenance Results * Due to [place] law, this organization might not be sharing negative HIV tests. * Pap w/HPV (03/11/2012 4:22 AM EST) Thin Prep W/Skoog Patching Machine Operator See note [facility] Comment: Negative for Intraepithelial Neoplasia or Malignancy Adequacy: Satisfactory for evaluation-endocervical/transformation zone component present Testing Location: Unless otherwise indicated, testing performed at [facility], [address] [place] [address], CLIA # [id number], Director: Titi Valdovinos M.D. Hpv Not Detected [facility] Comment: Assay specific for high risk types: 16,18,31,33,35,39,45,51,52,56,58,59,66,68 03/11/2012 4:22 AM EST 03/12/2012 4:22 AM EST us Serina Gray LAB HISTORICAL RESULTS Final Res ult [facility] from Last 3 Months or Most Recently Relevant to Health Maintenance Insurance [facility]
--- NOTE | 2024-11-23 08:37 | MHC.OFFVIS ---
Vital Signs 11/23/24 08:45 Height 5 ft 1 in Weight 130 lb BMI 24.6 BP 136/72 Blood Pressure Location Lt brachial Position Sitting Pulse 92 Intake Visit Reasons: Sterotactic biopsy 1 o'clock calcification Intake Note: Pt states, I have to meet with the surgeon before I have a biopsy. no complaints, not something she felt, just found on mammo. Disability Counselor Required: No Allergies No Known Allergies Allergy (Verified 11/23/24 08:40) Medication List - Last Reconciled 11/23/24 by Toribio Farnsworth RN ferrous fumarate 325 mg PO DAILY hydroxyzine HCl 50 mg PO BEDTIME PRN omeprazole 20 mg PO BID tramadol 50 mg PO DAILY PRN 30 days Post menopausal: Yes (no period since 2008) Followed by:: menarche age 17, , no breast feeding HPI Comments Details: 59-year-old female patient presenting for evaluation of a right breast abnormal mammogram performed on 11/19/2024. This revealed a grouped amorphous cluster of calcifications in the upper inner right breast posterior depth felt to be suspicious for malignancy (BI-RADS 4). Stereotactic guided core biopsy was recommended in his scheduled at the [facility] on 11/26/2024. She denies a previous history of breast problems or breast surgery. Her family history is negative for breast or ovarian cancer. She is 2 para 2. Menarche at age 17, 1st child born when she was 18. She denies breast-feeding either child. She reports history of endometriosis and previously underwent a partial hysterectomy continued to have bleeding and subsequently underwent NovaSure which stopped the bleeding in 2008. Her last menstrual period was 2008. She also reports a right oophorectomy. She denies a history of hormone replacement therapy, genetic testing, breast biopsy, or Ashkenazi Temple heritage. She does have previous history of tobacco use, 0.5 packs per day times 10 years. 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 Current occupational exposures/hazards: No Cognitive needs: No Hearing needs: No Vision needs: No Female Reproductive History Menstrual Age of Menarche: 17 control method: none Menopause type: surgical Age of menopause: 43 Total pregnancies: 2 Full term: 2 Number of Living Children: 2 Review of Systems Const All systems reviewed & are unremarkable except as noted in HPI and below Denies chills, Denies fever(s), Denies headache(s), Denies poor appetite and Denies weakness ENT Denies headache(s) Card Denies chest pain, Denies irregular heart rhythm, Denies palpitations and Denies dyspnea Resp Denies cough, Denies excessive phlegm production and Denies dyspnea GI Denies abdominal pain, Denies bloating, Denies change in bowel habits, Denies constipation, Denies heartburn, Denies diarrhea, Denies nausea and Denies vomiting Denies urinary frequency and Denies nipple discharge Musc Denies back pain, Denies muscle weakness and Denies numbness Skin/Breast Denies breast skin changes, Denies breast pain, Denies breast mass, Denies changing lesions, Denies nipple discharge and Denies unusual bruising Neuro Denies headache(s), Denies numbness, Denies paresthesias and Denies weakness Psych Denies anxiety and Denies depression Endo Denies palpitations Zack/Lymph Denies lymphadenopathy Physical Exam Const General: cooperative and no acute distress Nutritional Appearance: well nourished Orientation/consciousness: patient oriented x3 Limitations: no limitations HEENT Head: Yes normocephalic and Yes atraumatic Ears: hearing grossly normal bilaterally Chest Other: Left breast: No skin change, no nipple retraction, no nipple discharge, no palpable mass, no enlarged lymph nodes. Right breast: No skin change, no nipple retraction, no nipple discharge, no palpable mass, no enlarged lymph nodes Resp Effort & Inspection: normal respiratory effort, no audible wheezes, no cough and no respiratory distress Cardio Jugular venous distension: no JVD GI Inspection: Yes normal to inspection Skin Other: Warm, dry, no rash Neuro General: patient oriented x3 Extrem General: Yes no clubbing, cyanosis or edema Assessment & Plan Assessment & Plan (1) Abnormal mammogram of right breast: Code(s): R92.8 - Other abnormal and inconclusive findings on diagnostic imaging of breast Category: Medical Plan 59-year-old female patient presenting with a recent mammogram which revealed a new cluster of calcifications in the right breast, upper inner quadrant, posterior depth felt to be suspicious for malignancy. She is scheduled for a stereotactic biopsy on 11/26/2024. Examination today revealed no suspicious findings in either breast with special attention to the upper inner quadrant right breast. I reviewed the mammograms in the biopsy technique in detail with the patient she expressed understanding. She will return in approximately 1 week to review the pathology results and discuss treatment options as necessary. She is welcome to call sooner for any questions or concerns. Orders: Orders MM stereotactic biopsy RT Today R92.8 - Other abnormal and inconclusive findings on diagnostic imaging of breast Coding Level of Care Code New Pt Level 4 (74005) Diagnoses Abnormal mammogram of right breast R92.8
[2024-11-23 08:45] VITALS: BP 136/72; PULSE 92; BMI 24.6
== END 2024-11-23 09:01 | disposition home or self-care (01) ==
LOC: HO.HGS 08:21
PROVIDERS: PCP Physician Assistant; Visit Provider Surgery
DX: R92.8 Other abnormal and inconclusive findings on diagnostic imaging of breast (principal)
CPT/HCPCS: 99204

== ENCOUNTER → 2024-11-23 08:20 | Outpatient (BNVA) | payer OTHER, SELFPAY | PROVIDERS: PCP Physician Assistant; Visit Provider Surgery | DX: Z01.818 Encounter for other preprocedural examination (principal); R92.8 Other abnormal and inconclusive findings on diagnostic imaging of breast | CPT/HCPCS: 99202 ==

== ENCOUNTER 2024-11-26 08:50 | Outpatient (REF) | payer OTHER, SELFPAY ==
--- NOTE | ~2024-11-26 | MM_ITS ---
EXAMINATION: STEREOTACTICALLY-GUIDED RIGHT BREAST BIOPSY CLINICAL INFORMATION: Grouped calcifications upper inner right breast posterior depth. COMPARISON: Priors on PACS. INFORMED CONSENT: After the details of the procedure, as well as the risks (including, but not limited to, bleeding, hematoma formation, and infection), benefits and alternatives (including doing nothing, short-interval follow up, and surgery) to the procedure were explained to the patient in detail and all of her questions were answered, informed written consent was obtained. TECHNIQUE/FINDINGS: A timeout was performed. The lesion intended for biopsy was identified stereotactically and targeted. The skin of the right breast was then cleansed with sterile solution. Using stereotactic guidance, aseptic technique, and 1% lidocaine with and without epinephrine for local anesthesia, a total of 12 cores were obtained through the targeted area with a 9-gauge vacuum-assisted Eviva core biopsy device from a superior approach. Specimen radiography reveals the targeted calcifications in the sampled tissue. At the completion of tissue sampling, a single top hat-shaped metallic clip was deposited at the biopsy site. Adequate sampling was achieved. The postprocedure 2-view direct digital mammogram reveals satisfactory positioning of the biopsy clip. The patient tolerated the procedure well and, after assuring adequate hemostasis, was discharged in good condition after reviewing postbiopsy breast care instructions. Final pathology results are pending. MM/MM stereotactic biopsy RT IMPRESSION: 1. Uncomplicated stereotactically-guided core biopsy of the right breast. The 2-view direct digital postprocedure mammogram reveals satisfactory positioning of the biopsy clip. 2. Final pathology results are pending. A separate report with final recommendations will be issued once these results are made available. Electronically signed by: Ruby Hussein DO 11/26/2024 10:45 AM EDT
--- OUTSIDE RECORDS SUMMARY | 2024-11-26 09:10 | XMS_ITS | Encounter Summary ---
Author Organization [facility] Address [address] [facility] [address] [place] [address] Phone Care Team Providers Care Substation Technician Name Role Phone Paco Amos MD Primary Care Provider [phone] Encounter Details Date Type Department Care Team (Late Contact Info) Description 10/15/2022 Procedure Pass [facility], [facility] [address] [place] [address] Social History Tobacco Use Types Packs/Day Years [...] 1:00 PM EDT Office Visit [facility] [address] [place] [phone] Hilary Farah MD [address] [place] [phone] [email or web address] documented as of this encounter Visit Diagnoses Not on filedocumented in this encounter Care Teams Substation Technician Relationship Specialty Start Date End Date Paco Amos MD [address] [place] [phone] PCP - General Family Medicine 10/10/22 documented as of this encounter Additional Source Comments The information contained in this document represents components of the legal health record. It is not the complete legal health record.[facility]
--- OUTSIDE RECORDS SUMMARY | 2024-11-26 09:10 | XMS_ITS | Clinical Summary ---
Author Organization [facility] Address [address] [place] [address] Care Team Providers Care Shop Foreman Name Role Phone Unavailable Primary Care Provider [...] 75+ series) 2042 Procedures * Due to [place] Arter[place] law, this organization might not be sharing negative HIV tests. Procedure Name Priority Date/Time Associated Diagnosis Comments PAP W/HPV, CONVERSION Routine 03/11/2012 4:22 AM EST from Last 3 Months or Most Recently Relevant to Health Maintenance Results * Due to [place] law, this organization might not be sharing negative HIV tests. * Pap w/HPV (03/11/2012 4:22 AM EST) Thin Prep W/Pill Coater See note [facility] Comment: Negative for Intraepithelial Neoplasia or Malignancy Adequacy: Satisfactory for evaluation-endocervical/transformation zone component present Testing Location: Unless otherwise indicated, testing performed at [facility], [address] [place] [address], CLIA # [id number], Director: Titi Valdovinos M.D. Hpv Not Detected [facility] Comment: Assay specific for high risk types: 16,18,31,33,35,39,45,51,52,56,58,59,66,68 03/11/2012 4:22 AM EST 03/12/2012 4:22 AM EST us Serina Gray LAB HISTORICAL RESULTS Final Res ult [facility] from Last 3 Months or Most Recently Relevant to Health Maintenance Insurance [facility]
--- OUTSIDE RECORDS SUMMARY | 2024-11-26 09:10 | XMS_ITS | Continuity of Care Document ---
Author Organization [facility] Address [address] [facility] [address] [place], [place] Phone [phone] Care Team Providers Care University Extension Specialist Name Role Phone Bette Antonio MD Care Team Information Mixing Engineer U navailable ADELINA MENDEZ M.D. Care Team Information Rec eiver Unavailable Bette Antonio MD Primary Care Physician Unavailab le Problems Active Problems Provider Date Disorder of adrenal gland Christina Drew Onset: 2019 Social History Type Date Description Comments Sex Female Sex Unknown Allergies and adverse reactions Description No Known Drug Allergies Medications Active Medications SIG Qnty Indications Ordering Provider Date Kfudgbammjbus9zh Tablets 1 tab by mouth @11:00pm 1tabs E27.8 Adelina Mendez M.D. 02/26/2022 Calcium 600+V635-020zz-Dgez Tablets 1 tab by mouth once a day Unknown Aqxc66pi Tablets ?dose Unknown Multi Vitamin DailyTablets 1 by mouth every day Unknown Tramadol IMG32gs Tablets Zohaib Ledesma MD History Medications Gehaxpjskbmtn7vz Tablets 1 tab by mouth @11:00pm 1tabs Adelina Mendez M.D. 02/03/2021 - 02/20/2021 Xswvnv38hx Capsules 1 bid Unknown - 02/20/2021
[2024-11-26] MEDS: Lidocaine HCl 1 % 20 ML VIAL 5 ML SUBCUT (10:04)
[2024-11-26] MEDS: Lidocaine HCl 1%/Epi 1:100,000 10 ML VIAL 8 ML SUBCUT (10:06)
== END 2024-11-26 08:51 | disposition home or self-care (01) ==
LOC: HO.MAMMO 08:50
PROVIDERS: PCP Physician Assistant; Visit Provider Surgery
DX: R92.8 Other abnormal and inconclusive findings on diagnostic imaging of breast (principal)
CPT/HCPCS: 19081; 88305; A4648; J2003; J2004

== ENCOUNTER → 2024-11-26 09:00 | Outpatient (BNV) | payer OTHER, SELFPAY | PROVIDERS: PCP Physician Assistant; Visit Provider Internal Medicine | DX: R92.1 Mammographic calcification found on diagnostic imaging of breast (principal) | CPT/HCPCS: 19081; 77065 ==

== ENCOUNTER 2024-12-08 10:08 | Outpatient (AMB) | payer OTHER, SELFPAY ==
--- NOTE | 2024-12-08 10:21 | MHC.OFFVIS ---
Vital Signs 12/08/24 10:25 Height 5 ft 1 in Weight 120 lb BMI 22.7 BP 132/63 Blood Pressure Location Rt brachial Position Sitting Pulse 65 Intake Visit Reasons: 1wk s/p br bx Intake Note: Patient is seen in office for biopsy RESULTS, following for right breast calcifications. Pt c/o: no concerns. Reports bx site healing well. Corporate Investigator Required: No Accompanied by: Self / Same As Patient Allergies No Known Allergies Allergy (Verified 12/08/24 10:25) HPI Comments Details: 59-year-old female patient presenting for evaluation of a right breast abnormal mammogram performed on 11/19/2024. This revealed a grouped amorphous cluster of calcifications in the upper inner right breast posterior depth felt to be suspicious for malignancy (BI-RADS 4). She denies a previous history of breast problems or breast surgery. Her family history is negative for breast or ovarian cancer. She is 2 para 2. Menarche at age 17, 1st child born when she was 18. She denies breast-feeding either child. She reports history of endometriosis and previously underwent a partial hysterectomy continued to have bleeding and subsequently underwent NovaSure which stopped the bleeding in 2008. Her last menstrual period was 2008. She also reports a right oophorectomy. She denies a history of hormone replacement therapy, genetic testing, breast biopsy, or Ashkenazi Yarsani heritage. She does have previous history of tobacco use, 0.5 packs per day times 10 years. She underwent stereotactic guided core biopsy at the [facility] on 11/26/2024. Pathology revealed breast tissue with stromal fibrosis and calcifications; no atypia or malignancy identified. She tolerated the biopsy well and denies any ongoing symptoms. 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 Current occupational exposures/hazards: No Cognitive needs: No Hearing needs: No Vision needs: No Female Reproductive History Menstrual Age of Menarche: 17 Physical Exam Vital Signs: Last Vital Signs Pulse 65 12/08/24 10:25 BP 132/63 12/08/24 10:25 BMI result Body Mass Index 22.7 Const General: comfortable Nutritional Appearance: well nourished Orientation/consciousness: patient oriented x3 Chest Other: Exam deferred Neuro General: patient oriented x3 Assessment & Plan Assessment & Plan (1) Abnormal mammogram of right breast: Code(s): R92.8 - Other abnormal and inconclusive findings on diagnostic imaging of breast Category: Medical Plan 59-year-old female patient s/p stereotactic guided core biopsy of the right breast. Pathology revealed benign breast tissue with no atypia or malignancy. A copy of the report was provided to the patient. Routine follow-up screening mammography is recommended. Should follow up as needed. Coding Level of Care Code Est Pt Level 3 (52405) Diagnoses Abnormal mammogram of right breast R92.8
[2024-12-08 10:25] VITALS: BP 132/63; PULSE 65; BMI 22.7
--- OUTSIDE RECORDS SUMMARY | 2024-12-08 11:24 | XMS_ITS | Continuity of Care Document ---
Author Organization [facility] Address [address] [facility] [address] [place], [place] Phone [phone] Care Team Providers Care Rocket Motor Mechanic Name Role Phone Bette Antonio MD Care Team Information Lace Sewer U navailable AEDLINA MENDEZ M.D. Care Team Information Rec eiver Unavailable Bette Antonio MD Primary Care Physician Unavailab le Problems Active Problems Provider Date Disorder of adrenal gland Christina Drew Onset: 2019 Social History Type Date Description Comments Sex Female Sex Unknown Allergies and adverse reactions Description No Known Drug Allergies Medications Active Medications SIG Qnty Indications Ordering Provider Date Dyjirohzkmibl5qr Tablets 1 tab by mouth @11:00pm 1tabs E27.8 Adelina Mendez M.D. 02/26/2022 Calcium 600+Y286-136uk-Nhkc Tablets 1 tab by mouth once a day Unknown Reco13ok Tablets ?dose Unknown Multi Vitamin DailyTablets 1 by mouth every day Unknown Tramadol GGC29qe Tablets Zohaib Ledesma MD History Medications Rwtjizwglvutq4ez Tablets 1 tab by mouth @11:00pm 1tabs Adelina Mendez M.D. 02/03/2021 - 02/20/2021 Ykrtjf61qt Capsules 1 bid Unknown - 02/20/2021
--- OUTSIDE RECORDS SUMMARY | 2024-12-08 11:24 | XMS_ITS | Encounter Summary ---
Author Organization [facility] Address [address] [facility] [address] [place] [address] Phone Care Team Providers Care Ornamental Machine Operator Name Role Phone Paco Amos MD Primary Care Provider [phone] Encounter Details Date Type Department Care Team (Late Contact Info) Description 10/15/2022 Procedure Pass [facility], [facility] [address] [place] [address] Social History Tobacco Use Types Packs/Day Years [...] PM EDT Office Visit [facility] [address] [place] [address] Hilary Farah MD [address] [place] [phone] [email or web address] documented as of this encounter Visit Diagnoses Not on filedocumented in this encounter Care Teams Ornamental Machine Operator Relationship Specialty Start Date End Date Paco Amos MD [address] [place] [phone] PCP - General Family Medicine 10/10/22 documented as of this encounter Additional Source Comments The information contained in this document represents components of the legal health record. It is not the complete legal health record.[facility]
--- OUTSIDE RECORDS SUMMARY | 2024-12-08 11:24 | XMS_ITS | Clinical Summary ---
Author Organization [facility] Address [address] [place] [address] Care Team Providers Care Foaming Machine Operator Name Role Phone Unavailable Primary Care [...] 75+ series) 2042 Procedures * Due to [place] law, this organization might not be sharing negative HIV tests. Procedure Name Priority Date/Time Associated Diagnosis Comments PAP W/HPV, CONVERSION Routine 03/11/2012 4:22 AM EST from Last 3 Months or Most Recently Relevant to Health Maintenance Results * Due to [place] law, this organization might not be sharing negative HIV tests. * Pap w/HPV (03/11/2012 4:22 AM EST) Thin Prep W/Crm Marketing Executive See note [facility] Comment: Negative for Intraepithelial Neoplasia or Malignancy Adequacy: Satisfactory for evaluation-endocervical/transformation zone component present Testing Location: Unless otherwise indicated, testing performed at [facility], [address] [place] [address], CLIA # [id number], Director: Titi Valdovinos M.D. Hpv Not Detected [facility] Comment: Assay specific for high risk types: 16,18,31,33,35,39,45,51,52,56,58,59,66,68 03/11/2012 4:22 AM EST 03/12/2012 4:22 AM EST us Serina Gray LAB HISTORICAL RESULTS Final Res ult [facility] from Last 3 Months or Most Recently Relevant to Health Maintenance Insurance [facility]
== END 2024-12-08 10:31 | disposition home or self-care (01) ==
LOC: HO.HGS 10:09
PROVIDERS: PCP Physician Assistant; Visit Provider Surgery
DX: R92.8 Other abnormal and inconclusive findings on diagnostic imaging of breast (principal)
CPT/HCPCS: 99213

== ENCOUNTER → 2024-12-08 10:08 | Outpatient (BNVA) | payer OTHER, SELFPAY | PROVIDERS: PCP Physician Assistant; Visit Provider Surgery | DX: R92.8 Other abnormal and inconclusive findings on diagnostic imaging of breast (principal) | CPT/HCPCS: 99212 ==

== ENCOUNTER 2025-02-10 09:56 | Outpatient (REF) | payer OTHER, SELFPAY ==
--- OUTSIDE RECORDS SUMMARY | 2025-02-10 13:25 | XMS_ITS | Encounter Summary ---
Author Organization [facility] Address [address] [place] [phone] Phone Care Team Providers Care Wire Technician Name Role Phone Paco Amos MD Primary Care Provider Encounter Details Date Type Department Care Team (Late st Contact Info) Description 10/15/2022 Procedure Pass [facility], [address] [address] Social History Tobacco Use Types Packs/Day Years [...] as of this encounter Plan of Treatment Not on file documented as of this encounter Visit Diagnoses Not on filedocumented in this encounter Care Teams Wire Technician Relationship Specialty Start Date End Date Paco Amos MD [address] [place] [id number] PCP - General Family Medicine 10/10/22 documented as of this encounter Additional Source Comments The information contained in this document represents components of the legal health record. It is not the complete legal health record.[facility]
--- OUTSIDE RECORDS SUMMARY | 2025-02-10 13:26 | XMS_ITS | Clinical Summary ---
Author Organization [facility] Address [address] [facility] [facility] [address] [place], [place] [id number] Phone Care Team Providers Care Australian Rules Footballer Name Role Phone Paco Amos MD Primary Care Provider [phone] Family History Medical History Relation Comments Breast cancer Neg Hx Social History Tobacco Use Types Packs/Day Years [...] on file Sexual Orientation Not on file Plan of Treatment Health Maintenance Due Date Last Done Comments Adult Td,Tdap Booster 1967 LIPID PANEL 1967 DEPRESSION SCREENING 1979 SMOKING Hx and SMOKELESS TOBACCO SCREENING 01/23/1980 HEPATITIS C SCREENING 1985 HIV ONE-TIME SCREENING (18-65 YEARS) 1985 PAP SMEAR 01/23/1988 COLOGUARD 01/23/2012 COLONOSCOPY 01/23/2012 COLORECTAL CANCER SCREENING 01/23/2012 FIT TEST 01/23/2012 FOBT 01/23/2012 SIGMOIDOSCOPY 01/23/2012 VIRTUAL COLONOSCOPY 01/23/2012 PNEUMOCOCCAL VACCINES (50+ years) (1 of 1 - PCV) 2017 ZOSTER VACCINES (1 of 2) 2017 INFLUENZA VACCINE (#1) 2024 COVID-19 VACCINE ( - season) 2024 MAMMOGRAM 02/06/2025 02/06/2023, 01/20, 01/03/2020, Additional history exists RSV VACCINE (1 - 1-dose 75+ series) 2042 HEPATITIS A VACCINES Aged Out No long er eligible based on patient's age to complete this topic HIB VACCINES Aged Out No longer eligi ble based on patient's age to complete this topic MENINGOCOCCAL VACCINES (ACWY) Aged Out No longer eligible based on patient's age to complete this topic MENINGOCOCCAL VACCINES (B) Aged Out N o longer eligible based on patient's age to complete this topic Medical Devices Not on file Procedures Procedure Name Priority Date/Time Associated Diagnosis Comments BI MAMMOGRAM SCREENING WITH TOMOSYNTHESIS WITH CAD (BILATERAL) Routine 02/06/2023 8:23 AM EDT Breast screening from Last 3 Months or Most Recently Relevant to Health Maintenance Results * BI MAMMOGRAM SCREENING WITH TOMOSYNTHESIS WITH CAD (BILATERAL) (02/06/2023 8:23 AM EDT) Anatomical Region Laterality Modality Breast Left, Breast Right, Breast Bilateral Bila teral Mammography 02/07/2023 5:48 PM EDT Impressions 02/07/2023 5:53 PM EDT No findings suspicious for malignancy. In the absence of a worrisome palpable abnormality, annual screening mammography is recommended. BI-RADS CATEGORY: 2 - Benign finding. DENSITY: The breast tissue is heterogeneously dense, which could obscure a lesion on mammography. Narrative 02/07/2023 5:53 PM EDT AVAILABLE COMPARISON: 01/29/2022 through 08/24/2016. Bilateral 3-D tomosynthesis with 2-D reconstructions in the CC and MLO projection. Computer-aided detection system also utilized. No new mass, asymmetry, architectural distortion or suspicious calcifications have become apparent in either breast. Chronic cluster of calcifications in the upper medial right breast have not changed significantly. Procedure Note Ziggy Jones MD - 02/07/2023 AVAILABLE COMPARISON: 01/29/2022 through 08/24/2016. Bilateral 3-D tomosynthesis with 2-D reconstructions in the CC and MLOprojection. Computer-aided detection system also utilized. No new mass, asymmetry, architectural distortion or suspiciouscalcifications have become apparent in either breast. Chronic cluster of calcifications in the upper medial right breast havenot changed significantly. IMPRESSION: No findings suspicious for malignancy. In the absence of a worrisomepalpable abnormality, annual screening mammography is recommended. BI-RADS CATEGORY: 2 - Benign finding. DENSITY: The breast tissue is heterogeneously dense, which could obscurea lesion on mammography. Paco Amos MD [facility] MG EXAMS Final Result from Last 3 Months or Most Recently Relevant to Health Maintenance Insurance [facility] A[facility] [place] [id number] Care Teams Australian Rules Footballer Relationship Specialty Start Date End Date Paco Amos MD [address] [place] [phone] PCP - General Family Medicine 10/10/22 Additional Source Comments The information contained in this document represents components of the legal health record. It is not the complete legal health record.[facility]
--- OUTSIDE RECORDS SUMMARY | 2025-02-10 13:26 | XMS_ITS | Encounter Summary ---
Author Organization [facility] Address [address] [facility] [address] [place] [phone] Phone Care Team Providers Care Electro Winning Operator Name Role Phone Pcp, Unknown Primary Care Provider Paco Khan MD Primary Care Provider [phone] Reason for Referral * MRI/CAT Scan - Closed Specialty Diagnoses / Procedures Referred By Contlake t Referred To Contact Radiology Diagnoses Other specified disorders of adrenal gland Procedures CT Abdomen Only (No Pelvis) Adelina Mendez MD [address] [place] [address] Phone: tel: fax: [email or web address] Referral ID Status Reason Start Date Expiration Date Visits Re quested Visits Authorized [id number] Closed 09/05/2022 1 1 Encounter Details Date Type Department Care Team (Late st Contact Info) Description 09/05/2022 Transcribe Orders Virtual Department [address] [place] [address] Adelina Mendez MD [address] [place] [phone] [email or web address] Other specified disorders of adrenal gland (Primary Dx) Social History Tobacco Use Types Packs/Day Years Used Date Smoking Tobacco: Never Assessed Comments Unknown Sex and Gender Information Value Date Recorded Sex Assigned at Not on file Legal Sex Female 12:52 PM EDT Gender Identity Not on file Sexual Orientation Not on file documented as of this encounter Plan of Treatment Not on file documented as of this encounter Results * CT ABDOMEN (ADRENAL MASS) WITHOUT CONTRAST (10/24/2022 12:29 PM EDT) Anatomical Region Laterality Modality Abdomen, Abdominal Vasculature C omputed Tomography 10/24/2022 11:4 1 AM EDT Impressions 10/24/2022 4:38 PM EDT Approximate 1 cm left adrenal nodule is stable and consistent with an adenoma. No other significant changes. Narrative 10/24/2022 4:38 PM EDT HISTORY: Adrenal abnormality. COMPARISON: Outside CT abdomen (5 mm collimation) 08/21/2021. TECHNIQUE: A non-enhanced study performed of the abdomen as per adrenal protocol. Sagittal and coronal reformats generated.Automated exposure control utilized. FINDINGS: Lower hemithoraces: No significant abnormalities. Adrenals: Approximate 1.1 cm left adrenal nodule appears stable. Hounsfield units measure from 3.72 to 10.47. No right adrenal nodule. : Kidneys remain normal in size and attenuation. 2 mm calculus in the lower right kidney. Possible punctate calculus in the lower pole of the left kidney. No pelvocaliectasis. Proximal ureters are normal in caliber. GI: No marked bowel distention or evidence of bowel wall thickening. Liver: Subcentimeter hypodense mass in the lateral segment of the left lobe of the liver is stable and consistent with a cyst. No other significant changes. Spleen: No focal abnormalities. No splenomegaly. Pancreas/biliary: No focal pancreatic lesions. Peripancreatic fat is well- preserved. No evidence of biliary ductal dilation. Lymph node/lymphatics: No suspicious lymph nodes. Cardiovascular: Abdominal aorta and IVC normal in caliber. Musculoskeletal: No evidence of abdominal wall masses. Healing left rib fractures. No suspicious lytic or blastic lesions within the bones. Procedure Note Art Vee MD - 10/24/2022 HISTORY: Adrenal abnormality. COMPARISON: Outside CT abdomen (5 mm collimation) 08/21/2021. TECHNIQUE: A non-enhanced study performed of the abdomen as per adrenalprotocol. Sagittal and coronal reformats generated.Automated exposurecontrol utilized. FINDINGS: Lower hemithoraces: No significant abnormalities. Adrenals: Approximate 1.1 cm left adrenal nodule appears stable.Hounsfield units measure from 3.72 to 10.47. No right adrenal nodule. : Kidneys remain normal in size and attenuation. 2 mm calculus in thelower right kidney. Possible punctate calculus in the lower pole of theleft kidney. No pelvocaliectasis. Proximal ureters are normal incaliber. GI: No marked bowel distention or evidence of bowel wall thickening. Liver: Subcentimeter hypodense mass in the lateral segment of the leftlobe of the liver is stable and consistent with a cyst. No othersignificant changes. Spleen: No focal abnormalities. No splenomegaly. Pancreas/biliary: No focal pancreatic lesions. Peripancreatic fat iswell- preserved. No evidence of biliary ductal dilation. Lymph node/lymphatics: No suspicious lymph nodes. Cardiovascular: Abdominal aorta and IVC normal in caliber. Musculoskeletal: No evidence of abdominal wall masses. Healing left ribfractures. No suspicious lytic or blastic lesions within the bones. IMPRESSION: Approximate 1 cm left adrenal nodule is stable and consistent with anadenoma. No other significant changes. Adelina Mendez MD IMG CT XSPECIALTY ORDERABLES Final Result documented in this encounter Visit Diagnoses Diagnosis Other specified disorders of adrenal gland- Primary Other specified disorders of adrenal gland documented in this encounter Care Teams Electro Winning Operator Relationship Specialty Start Date End Date Pcp, Unknown PCP - General 09/28/22 10/09/22 Paco Amos MD [address] [place] [phone] PCP - General Family Medicine 10/10/22 documented as of this encounter Additional Source Comments The information contained in this document represents components of the legal health record. It is not the complete legal health record.[facility]
--- OUTSIDE RECORDS SUMMARY | 2025-02-10 13:26 | XMS_ITS | Encounter Summary ---
Author Organization [facility] Address [address] [place] [phone] Phone Care Team Providers Care Circular Knife Cutter Machine Name Role Phone Paco Amos MD Primary Care Provider [phone] Encounter Details Date Type Department Care Team (Latest Contact Info) Description 10/15/2022 Transcribe Orders Virtual Department [address] [place] [address] Paco Amos MD [address] [place] [id number] Breast screening (Primary Dx) Social History Tobacco Use Types [...] documented as of this encounter Results * BI MAMMOGRAM SCREENING WITH TOMOSYNTHESIS [...] obscurea lesion on mammography. Paco Amos MD IMG MG EXAMS Final Result documented in this encounter Visit Diagnoses Diagnosis Breast screening- Primary Breast screening, unspecified Breast screening Breast screening, unspecified documented in this encounter Care Teams Circular Knife Cutter Machine Relationship Specialty Start Date End Date Paco Amos MD [address] [place] [phone] PCP - General Family Medicine 10/10/22 documented as of this encounter Additional Source Comments The information contained in this document represents components of the legal health record. It is not the complete legal health record.[facility]
--- OUTSIDE RECORDS SUMMARY | 2025-02-10 13:26 | XMS_ITS | Encounter Summary ---
Author Organization [facility] Address [address] [place] [phone] Phone Care Team Providers Care Milled Rubber Tender Name Role Phone Pcp, Unknown Primary Care Provider Paco Khan MD Primary Care Provider Encounter Details Date Type Department Care Team (Late st Contact Info) Description 09/05/2022 Procedure Pass [facility], Ct Scan - [address] [address] Social History Tobacco Use Types Packs/Day Years [...] on filedocumented in this encounter Care Teams Milled Rubber Tender Relationship Specialty Start Date End Date Pcp, Unknown PCP - General 09/28/22 10/09/22 Paco Amos MD [address] [place] [address] PCP - General Family Medicine 10/10/22 documented as of this encounter Additional Source Comments The information contained in this document represents components of the legal health record. It is not the complete legal health record.[facility]
[2025-02-10 14:00] LABS: MANUAL DIFF FLAG NO
[2025-02-10 14:08] LABS: Hematocrit 36.3 % (37.0-47.0); Hemoglobin 11.7 g/dl (12.0-16.0); Imm Gran Abs Auto 0.01 X10*3/uL (0.00-0.03); Imm Gran Pct Auto 0.2 % (0.0-0.4); Lymphocytes Absolute Auto 1.5 X10*3/uL (1.2-4.9); Mean Corpuscular HGB Conc 32.2 g/dl (31.0-35.0); Mean Corpuscular Hemoglobin 28.1 pg (27.0-33.0); Mean Corpuscular Volume 87.3 fL (80.0-98.0); NRBC Abs Auto 0.000 X10*3/uL (0.0-0.012); NRBC Pct Auto 0.0 /100WBC (0.0-0.2); Platelet Count 343 X10*3/uL (160-400); Red Blood Count 4.16 X10*6/uL (4.20-5.50); White Blood Count 4.9 X10*3/uL (4.8-10.8)
[2025-02-10 14:12] LABS: Appearance Urine Clear; Glucose Urine UA Negative (Negative); PH 7.5 (5.0-9.0); Specific Gravity - Urine 1.010 (1.005-1.025)
[2025-02-10 14:50] LABS: Alanine Aminotransferase 12 U/L (0-31); Albumin Level 4.4 g/dL (3.5-5.0); Alkaline Phosphatase 67 U/L (39-117); Anion Gap 9 (12-20); Aspartate Amino Transferase 23 U/L (5-31); Blood Urea Nitrogen 10 mg/dL (9-16); Calcium 9.0 mg/dL (8.4-10.2); Carbon Dioxide 30 mmol/L (22-29); Chloride 104 mmol/L (96-108); Estimated Glomerular Filt Rate > 60; Ferritin 21 ng/mL (10-250); Iron 75 mcg/dL (30-160); Percent Iron Saturation 28 % (15-50); Potassium 4.2 mmol/L (3.3-5.1); Sodium 139 mmol/L (135-145); Total Iron Binding Capacity 272 mcg/dL (228-428); Total Protein 7.1 g/dL (6.5-8.0); Unsaturated Iron Binding 197 ug/dL
[2025-02-10 15:00] LABS: Folate 8.9 ng/mL (> or = 4.0); Vitamin B12 379 pg/mL (200-900)
== END 2025-02-10 09:57 | disposition home or self-care (01) ==
LOC: HO.WFDLDS 09:56
PROVIDERS: PCP Physician Assistant; Visit Provider Physician Assistant
DX: R30.0 Dysuria (principal); D50.9 Iron deficiency anemia, unspecified; D64.9 Anemia, unspecified; R63.4 Abnormal weight loss; M81.0 Age-related osteoporosis without current pathological fracture; E78.49 Other hyperlipidemia; M54.2 Cervicalgia; G89.29 Other chronic pain; Z79.899 Other long term (current) drug therapy
CPT/HCPCS: 36415; 80053; 81003; 82570; 82607; 82728; 82746; 83540; 84443; 85025; 96127; 99212

== ENCOUNTER 2025-02-10 09:56 | Outpatient (AMB) | payer OTHER, SELFPAY ==
--- NOTE | 2025-02-10 09:59 | MHC.PC.OV ---
Vital Signs 02/10/25 10:02 Height 5 ft 1 in Weight 116 lb 4 oz BMI 22.0 BP 102/52 L Blood Pressure Location Rt brachial Position Sitting Respiration 16 Pulse 79 Pulse Source Pulse Oximeter Temp 98.6 F Temp Source Oral Pulse Oximetry (%) 99 Oxygen Delivery Method Room Air Intake Visit Reasons: labs Intake Note: labs Narrow Gauge Brakeman Required: No Allergies No Known Allergies Allergy (Verified 02/10/25 10:01) Medication List - Last Reconciled 02/10/25 by Ashley Narvaez PA-C ferrous fumarate 325 mg PO DAILY hydroxyzine HCl 50 mg PO BEDTIME PRN omeprazole 20 mg PO BID tramadol 50 mg PO DAILY PRN 30 days Tobacco use date assessed: 02/10/25 Dental Screening Dental Screen Date: 02/10/25 Did you have a dental visit in the last 12 months?: Yes Did you have a dental problem in the last 6 months where you did not have access to dental care?: No Was dental information given to patient?: Patient has dentist HPI labs HPI Details Patient is a 60-year-old female with a significant past medical history of chronic neck pain, chronic pain medication use, chronic low back pain presenting today for a follow up. Since I last saw her how been from pancreatic cancer.. She denies any acute concerns today. When she was last seen she was noted to be iron-deficiency and I did want to recheck labs and have her follow up with GI. She tells me that she canceled her GI appointment. She states she did not reschedule this. She would like to be scheduled [place] to [place]. [place] She has been taking iron. She is postmenopausal and did have a negative Cologuard in 2022. She denies any blood in her stool or urine. No abdominal pain or bloating. She does have night sweats but attributes this to her hot flashes which feel unchanged for the past few years. She has struggled to gain weight since losing her has been. She has lost 15 lb within the last 6 months. She states that she does not have any difficulty swallowing, no swollen lymph nodes, no fatigue. She denies any additional symptoms just overall feels okay other than the grief. Psych: She recently moved to this area from [place] because her had pancreatic cancer and they were closer to the major hospitals for him. She stated since he passed in April she is now back to the [place] area to be with her grandchildren. she also rarely uses hydroxyzine for panic attacks/insomnia. She has a good support system. 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 Musculoskeletal: On a controlled substance contract for tramadol that she uses a couple times a week. She has chronic neck and back pain. Endo: follows with endo in [place] for left adrenal nodule (believes benign and stable for years). Mammo: utd and due in April Colonoscopy: states she had the cologuard (2022) Pap: partial hysterectomy Bone density: Shows severe osteoporosis. Did follow with endocrinology but wishes to go to Dr. Mendez. 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 Current occupational exposures/hazards: No Cognitive needs: No Hearing needs: No Vision needs: No Female Reproductive History Menstrual Age of Menarche: 17 Questionnaire PHQ-9 Over the last 2 weeks, how often have you been bothered by any of the following problems? 87167 - PHQ-9 Billing: Yes Source: Developed by Drs. Willie Murray, Gwendolyn Yu, Thomas Martin and colleagues, with an educational treasure from [employer]. Thrive Questionnaire Date Thrive assessed: 07/30/24 I am a: Patient What is your living situation today?: I have a steady place to live Within the past 12 months, did the food you bought not last and you didn't have the money to get more?: Never true Within the past 12 months, did you worry whether your food would run out before you got money to buy more?: Never true Do you have trouble paying for medicines?: No Do you have trouble getting transportation to medical appointments?: No Do you have trouble paying your heating and electricity bill?: No Do you have trouble taking care of your child, family member or friend?: No Do you have trouble with day-to-day activities such as bathing, preparing meals, shopping, managing finances, etc.?: No Are you currently unemployed and looking for a job?: No Are you interested in more education?: No Please select the resources that you would like help with: None Currently or been in a relationship where the following occur: No concerns reported THRIVE Score: 0 JOEY-7 AMB Questionnaire JOEY-7 Date JOEY - 7 assessed: 02/10/25 Source: Developed by Drs. Willie Murray, Gwendolyn Yu, Thomas Martin and colleagues, with an educational treasure from [employer]. JOEY-7 Assessment Billing JOEY-7 Assessment Tool: JOEY-7 Assessment 52395 Physical exam (Primary Care) Tobacco/Smoking Status: Tobacco use Status Tobacco use date assessed 08/06/24 08/06/24 08:45 Patient Tobacco Use Status Former Tobacco user 08/06/24 08:45 e-Cigarette/Vaping Use Never Used 08/06/24 08:45 Thrive Assessment: Date of Thrive Assessment Date Thrive assessed 07/30/24 02/06/25 10:12 Currently or been in a relationship where the following occur: No concerns reported Const Orientation/consciousness: patient oriented x3 HENVA Ears: hearing grossly normal bilaterally Neck Thyroid: Thyroid normal Lymphatic: no lymphadenopathy noted Resp Auscultation: clear to auscultation bilaterally Cardio Rate: regular rate Rhythm: regular rhythm Heart sounds: S1 normal heart sound present and S2 normal heart sound present GI Inspection: Yes normal to inspection Palpation (GI): Soft to palpation and Other GI palpation findings present (nontender, no cva tenderness) Auscultation: normoactive bowel sounds Rectal Exam - Female: deferred Skin General skin exam: no rashes or lesions noted Neuro General: patient oriented x3, gait normal and no focal motor deficits Results Reviewed Results Reviewed: Laboratory Tests 02/10/24 08/06/24 08:45 09:14 WBC 4.0 L RBC 4.00 L Hgb 10.7 L Hct 34.0 L Plt Count 376 Phosphorus 3.6 Iron 28 L Ferritin 6 L AST 23 ALT 16 Alkaline Phosphatase 73 Triglycerides 92 Cholesterol 251 H LDL Cholesterol, Calc 174 H HDL Cholesterol 59 Coding Level of Care Code Est Pt Level 4 (43380) Complex EM visit Add On G2211 Diagnoses YUN (iron deficiency anemia) D50.9 Weight loss R63.4 Other hyperlipidemia E78.49 Chronic neck pain M54.2; G89.29 Additional Codes JOEY-7 Assessment Billing - JOEY-7 Assessment Tool: JOEY-7 Assessment 39599 ([id number]) PHQ-9 - 13833 - PHQ-9 Billing: Yes ([id number]) Assessment & Plan Assessment & Plan (1) YUN (iron deficiency anemia): Code(s): D50.9 - Iron deficiency anemia, unspecified Category: Medical Plan: never scheduled GI, will refer out by Trevor. Referral to [facility] [place] I will also refer her to Heme-Onc given the weight loss and the new anemia. (2) Weight loss: Code(s): R63.4 - Abnormal weight loss Category: Medical Plan: CT abdomen and pelvis and chest ordered (3) Other hyperlipidemia: Code(s): E78.49 - Other hyperlipidemia Category: Medical Plan: We will monitor. (4) Chronic neck pain: Code(s): M54.2 - Cervicalgia; G89.29 - Other chronic pain Category: Medical Plan: On a controlled substance contract Orders: Orders Complete Blood Count Auto Diff Today D50.9 - Iron deficiency anemia, unspecified, D64.9 - Anemia, unspecified, R63.4 - Abnormal weight loss Comprehensive [place]. Panel Fast Today D50.9 - Iron deficiency anemia, unspecified, D64.9 - Anemia, unspecified, R63.4 - Abnormal weight loss TSH reflex Free T4 Today D50.9 - Iron deficiency anemia, unspecified, D64.9 - Anemia, unspecified, R63.4 - Abnormal weight loss Vitamin B12 and Folate Today D50.9 - Iron deficiency anemia, unspecified, D64.9 - Anemia, unspecified, R63.4 - Abnormal weight loss Ferritin Today D50.9 - Iron deficiency anemia, unspecified, D64.9 - Anemia, unspecified, R63.4 - Abnormal weight loss IRON PROFILE Today D50.9 - Iron deficiency anemia, unspecified, D64.9 - Anemia, unspecified, R63.4 - Abnormal weight loss CT abdomen pelvis w IV con Today D50.9 - Iron deficiency anemia, unspecified, D64.9 - Anemia, unspecified, R63.4 - Abnormal weight loss CT chest wo IV con Today D50.9 - Iron deficiency anemia, unspecified, G89.29 - Other chronic pain, M54.2 - Cervicalgia, R63.4 - Abnormal weight loss UA CC w/rflx Micro + Cult Today R30.0 - Dysuria Referrals Hematology & Oncology Referral D50.9 - Iron deficiency anemia, unspecified, R63.4 - Abnormal weight loss Gastroenterology Referral D50.9 - Iron deficiency anemia, unspecified, D64.9 - Anemia, unspecified, R63.4 - Abnormal weight loss
[2025-02-10 10:02] VITALS: BP 102/52; PULSE 79; RESP 16; TEMP 37; O2SAT 99; BMI 22.0
--- OUTSIDE RECORDS SUMMARY | 2025-02-10 11:58 | XMS_ITS | Clinical Summary ---
Author Organization [facility] Address [address] [place] [address] Care Team Providers Care Transfer Driver Name Role Phone Unavailable Primary Care Provider [...] 1989 Mammogram 2007 Pap Smear 03/11/2015 03/11/2012, 05/24, 04/26/2009, Additional [...] series) 2042 Procedures * Due to [place] edulio law, this organization might not be sharing negative HIV tests. Procedure Name Priority Date/Time Associated Diagnosis Comments PAP W/HPV, CONVERSION Routine 03/11/2012 4:22 AM EST from Last 3 Months or Most Recently Relevant to Health Maintenance Results * Due to [place] edulio law, this organization might not be sharing negative HIV tests. * Pap w/HPV (03/11/2012 4:22 AM EST) Thin Prep W/Packer Operator Automatic See note C [facility] Comment: Negative for Intraepithelial Neoplasia or Malignancy Adequacy: Satisfactory for evaluation-endocervical/transformation zone component present Testing Location: Unless otherwise indicated, testing performed at [facility], [address] [place] [address], CLIA # [id number], Director: Titi Valdovinos M.D. Hpv Not Detected [facility] Comment: Assay specific for high risk types: 16,18,31,33,35,39,45,51,52,56,58,59,66,68 03/11/2012 4:22 AM EST 03/12/2012 4:22 AM EST Serina [facility] HISTORICAL RESULTS Final Res ult [facility] from Last 3 Months or Most Recently Relevant to Health Maintenance Insurance [facility]
--- OUTSIDE RECORDS SUMMARY | 2025-02-10 11:58 | XMS_ITS | Continuity of Care Document ---
Author Organization [facility] Address [address] [place], [place] Phone [phone] Care Team Providers Care Bench Worker Apprentice Name Role Phone Bette Antonio MD Care Team Information Tailor Garment Fitter U navailable ADELINA MENDEZ M.D. Care Team Information Rec eiver Unavailable Bette Antonio MD Primary Care Physician Unavailab le Problems Active Problems Provider Date Disorder of adrenal gland Christina Drew Onset: 2019 Social History Type Date Description Comments Sex Female Sex Unknown Allergies and adverse reactions Description No Known Drug Allergies Medications Active Medications SIG Qnty Indications Ordering Provider Date Yqmldvdkcaxbc8rw Tablets 1 tab by mouth @11:00pm 1tabs E27.8 Adelina Mendez M.D. 02/26/2022 Calcium 600+[id number] Tablets 1 tab by mouth once a day Unknown Sbjb16iv Tablets ?dose Unknown Multi Vitamin DailyTablets 1 by mouth every day Unknown Tramadol ELT82xw Tablets Zohaib Ledesma MD History Medications Sytjmqbefzhol3jw Tablets 1 tab by mouth @11:00pm 1tabs Adelina Mendez M.D. 02/03/2021 - 02/20/2021 Pmgtro78vd Capsules 1 bid Unknown - 02/20/2021
== END 2025-02-10 10:24 | disposition home or self-care (01) ==
LOC: HO.HMCFM 09:57
PROVIDERS: PCP Physician Assistant; Visit Provider Physician Assistant
DX: D50.9 Iron deficiency anemia, unspecified (principal); R63.4 Abnormal weight loss; E78.49 Other hyperlipidemia; M54.2 Cervicalgia; G89.29 Other chronic pain